=== PATIENT | female | born 1960 | race African-American/Black ===

== ENCOUNTER 2016-09-08 08:13 | Inpatient (IN) ==
--- NOTE | 2016-09-05 20:31 | Discharge Summary ---
<France Espinoza - Last Filed: 09/07/16 21:02> - Discharge Diagnosis (1) Arthritis of knee, right Priority: Primary Status: Acute (2) HTN (hypertension) Priority: Secondary Status: Chronic Qualifiers: Hypertension type: essential hypertension Qualified Code(s): I10 - Essential (primary) hypertension (3) MADAY (obstructive sleep apnea) Priority: Secondary Status: Chronic (4) Tobacco use Priority: Secondary Status: Chronic - Discharge Medications Home Medications: Alprazolam [Xanax 1 MG Tablet] 1 mg PO BID PRN 02/29/16 [History] Propranolol HCl 40 mg PO BID 02/29/16 [History] Aspirin Enteric Coated [Aspirin EC] 325 mg PO DAILY #21 tablet.dr 09/07/16 [Rx] HYDROcodone/Acet 5/325 mg [[place] 5-325 mg] 1 - 2 tab PO Q6H PRN #40 tab [Rx] Buspirone HCl [Buspar] 5 mg PO QAM 09/08/16 [History] Buspirone HCl [Buspar] 10 mg PO HS 09/08/16 [History] Promethazine HCl 12.5 mg PO DAILY PRN 09/08/16 [History] Allergies/Adverse Reactions: Allergies Oxycodone [From Percocet] Allergy (Verified 09/08/16 09:20) Itching Primary care physician: Kavya Gannon DO - Patient Status Disposition: Transfer Inpatient Rehab Fac Condition: Good - Discharge Instructions Follow Up With: Kavya Gannon DO [Primary Care Provider] - - Hospital Course Hospital course: Ms. Jennings is a 55 year old female - Time Spent with Patient Total time spent providing and/or coordinating discharge services: <Collins Cowan - Last Filed: 09/10/16 06:50> Date of Encounter: 09/10/16 Time of Encounter: 06:50 - Discharge Diagnosis (1) HTN (hypertension) Priority: Secondary Status: Chronic Qualifiers: Hypertension type: essential hypertension Qualified Code(s): I10 - Essential (primary) hypertension (2) MADAY (obstructive sleep apnea) Priority: Secondary Status: Chronic (3) Tobacco use Priority: Secondary Status: Chronic (4) Morbid obesity with BMI of 40.0-44.9, adult Priority: Secondary Status: Chronic (5) Knee instability Priority: Primary Status: Acute Qualifiers: Laterality: right Qualified Code(s): M25.361 - Other instability, right knee (6) Acute blood loss anemia Status: Acute Primary care physician: Kavya Gannon DO - Patient Status Functional capacity at discharge: uses cane/walker Overall status at discharge: patient is progressing back to baseline - Hospital Course Hospital course: Ms. Jennings is a 55 year old female The patient had an uneventful postoperative course. They received antibiotics and physical therapy and were discharged in stable condition. There will follow -up in the office in 2 weeks. Hemoglobin 8.6 a symptomatically aspirin DVT prophylaxis - Time Spent with Patient Total time spent providing and/or coordinating discharge services:
[2016-09-08] MEDS ORDERED: Albuterol 2.5 MG/3 ML NEBULIZER IH ONE (08:47)
[2016-09-08] MEDS ORDERED: CeFAZolin Pre 2,000 MG/100 ML 2,000 MG/100 ML BAG IVPB ONE (08:47)
[2016-09-08] MEDS ORDERED: Lidocaine 1% 20 ML MDV ID ONE (08:47)
[2016-09-08] MEDS ORDERED: Albuterol 2.5 MG/3 ML NEBULIZER ONE (08:50)
[2016-09-08] MEDS ORDERED: Lidocaine -MPF 2% 2 ML VIAL ONE (08:58)
[2016-09-08] MEDS ORDERED: *HR* FentaNYL (PF) 100 MCG/2 ML VIAL ONE ×2 (08:58→11:30)
[2016-09-08] MEDS ORDERED: *HR* Propofol 200 MG/20 ML VIAL IVP ONE ×2 (08:58→12:13)
[2016-09-08] MEDS ORDERED: *HR* Midazolam HCl 2 MG/2 ML VIAL ONE ×2 (08:58→10:39)
[2016-09-08] MEDS ORDERED: Ringers Solution, Lactated 1,000 ML IVC SCH ×2 (09:00→13:22)
--- NOTE | 2016-09-08 09:08 | History & Physical Report ---
Date of Encounter: 09/08/16 Time of Encounter: 09:08 24 Hour HP Update - Instructions Instructions: If the History and Physical is less than 30 days old and was completed prior to A.M. admission and or procedure and has NOT been updated on calendar day of procedure please complete this update prior to performing procedure. - Update Patient reports changes in Medical Condition: No Changes in assessment/condition: No Changes in Medication: No Preop tests/diagnostics Reviewed: Yes Surgery Remains Indicated: Yes Consent for Planned Operative Procedure(s) Verified: Yes - Pre-Operative Checklist Preoperative Checklist Indicated: No Prophylactic Antibiotic Ordered: Yes Is VTE Prophylaxis Indicated?: Yes
[2016-09-08] MEDS ORDERED: Famotidine 20 MG/2 ML VIAL IVP ONE (10:01)
[2016-09-08] MEDS ORDERED: Acetaminophen IV 1,000 MG/100 ML INFUS..BTL IVPB ONE (10:01)
--- NOTE | 2016-09-08 10:04 | Anesthesia Evaluation PreOp ---
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 09/07/16 [Rx] HYDROcodone/Acet 5/325 mg [[place] 5-325 mg] 1 - 2 tab PO Q6H PRN #40 tab [Rx] Buspirone HCl [Buspar] 5 mg PO QAM 09/08/16 [History] Buspirone HCl [Buspar] 10 mg PO HS 09/08/16 [History] Promethazine HCl 12.5 mg PO DAILY PRN 09/08/16 [History] Allergies Oxycodone [From Percocet] Allergy (Verified 09/08/16 09:20) Itching - Meds/Allergy Pre-op Review Medications Reviewed: Yes Allergies Reviewed: Yes Beta Blockers on Current Med List: No Anesthesia Results - Labs Laboratory Tests 08/26/16 08/26/16 11:33 11:33 Hgb 14.3 Hct 45.9 H Plt Count 385 Sodium 138 Potassium 4.0 BUN 15 Creatinine 0.93 - Imaging EKG: report reviewed (Sinus Tach) Anesthesia Exam O2 Sat Height 1.6 m Height 1.6 m Height 1.6 m Weight 102.965 kg Weight 102.965 kg Weight 102.965 kg O2 Sat by Pulse Oximetry 100 O2 Sat by Pulse Oximetry 100 Vital Signs Temp Pulse Resp BP Pulse Ox 98.3 F 83 16 150/78 100 09/08/16 08:47 09/08/16 08:47 09/08/16 08:47 09/08/16 08:47 09/08/16 08:47 Height: 5'3 Weight: 242 lbs - HEENT Pupil (Motor): Pupils equal, EOMI Mallampati: II Teeth: Normal Oral Opening: Greater than 3 - DIGITAL SPECIALIST LOC: Oriented DIGITAL SPECIALIST Sensory: Normal: RUE, LUE, RLE, LLE, Face - Cardiac Rhythm: Regular Murmur: None JVD: No Carotid Bruit: No - Pulmonary Breath Sounds: bilateral Clear Respiratory Effort: Symmetrical Anesthesia Assess/Plan ASA Score: 3 (HTN Tobacco [place]) Modified Hartland Scale for Level of Consciousness: Cooperative, oriented, and tranquil Anesthetic Plan: General, Regional Monitoring Plan: Standard Monitors Recovery Plan: PACU (Discused GA and RA, agrees to proceed)
[2016-09-08] MEDS ORDERED: ROPIVACAINE HCL/PF 0.5% 30 ML VIAL ONE (10:31)
[2016-09-08] MEDS ORDERED: Tetracaine/PF 20 MG/2 ML AMPUL SPINA ONE (10:31)
[2016-09-08] MEDS ORDERED: Bupivacaine/Clonidine Syringe 1 EACH SYRINGE ONE (10:31)
[2016-09-08] MEDS ORDERED: Ketorolac 30 MG/ML VIAL ONE (11:38)
[2016-09-08] MEDS ORDERED: Dexamethasone 4 MG/ML VIAL ONE (11:46)
--- NOTE | 2016-09-08 12:04 | Orthopedic Operative Note ---
Date of procedure: 09/08/16 Pre-op diagnosis: Right knee multidirectional instability Post-op diagnosis: same (Grade 3 arthritic changes patellofemoral joint medial compartment) Procedure: Procedure: Right Total knee replacement Estimated blood loss: 300 cc Hardware: Biomet Femur: Right 65, 15 x 120 Tibia: Tibia 67, 14 x 120 Tana insert: 12 constraine Patella: 37 Exam Under anesthesia: Significant varus valgus instability as well as anterior posterior instability Procedural Notes: Multi-ligament injury ACL PCL MCL and possibly LCL, grade 3 arthritic changes medial compartment patellofemoral joint. Operative procedure: The patient was brought to the operating room and placed on the operating room table. After general anesthesia was administered the operative knee was examined. Findings were noted in the exam under anesthesia. The operative extremity was prepped and draped in sterile surgical fashion. The patient received IV antibiotics prior to skin incision. A standard midline incision was made centered over the patella. The incision was made through the skin and subcutaneous tissue. A medial parapatellar tendon approach was performed. Care was taken to preserve tissue along the medial aspect of the patella. And to protect the patella tendon. The deep MCL was released off the medial tibia. The infra patella fat pad was excised. Knee was brought into flexion. Patient was noted to have grade 3 arthritic changes medial compartment and patellofemoral joint. Also noted to have disruption of the ACL and PCL varus valgus stress indicated MCL and LCL injuries as well. The entry hole was made for the intramedullary femoral guide. The guide was seated in 6 degrees of valgus. Anterior cut was made followed by the distal cut. The remnant ACL the PCL the medial and the lateral menisci were excised. The tibia was subluxed forward. The entry hole was made for the intramedullary tibial guide. Guide was seated to resect 2 mm off the more abnormal side. The knee was brought into flexion the distal femur was sized to a 65. The femur was first reamed to 15 by 120. The femoral guide was seated, the anterior cut was made followed by the posterior condylar cut, followed by the chamfer cuts. The finishing guide was seated the box cut was made. The tibia was sized to a 67 The tibia was first reamed up to a 14 x 120. Trial reduction revealed full extension no varus valgus instability with the appropriate 12 insert. The patella was everted and cut was made at the level of the insertion of the quadriceps and patella tendon. The patella was sized to a 87 the guide was seated and the lug holes are drilled. Trial reduction revealed excellent patella tracking. All trial components were removed all bony surfaces were irrigated. Components were assembled on the back table. The tibia was cemented first followed by the femur. The 12 Tana was seated and secured. The knee was brought into full extension. The patella was cemented and held in place with the patellar holding clamp. After the cement had hardened, the knee sat for 2 minutes with a Betadine saline solution. The knee was then irrigated out with 2 L of pulse irrigation. The extensor mechanism was with #2 FiberWire suture and #2 PDS suture. The subcutaneous tissue was then irrigated and closed deep with #1 PDS suture superficially with 0 PDS suture and skin was closed with skin reuben The patient was then placed in a sterile dressing and a postoperative brace extubated and transferred to recovery room in stable condition. Anesthesia: ZACHARY Surgeon: Collins Cowan Studio Receptionist: France Espinoza Condition: stable Disposition: PACU
[2016-09-08] MEDS ORDERED: *HR* HYDROmorphone 2 MG/ML SYRINGE ONE (12:16)
[2016-09-08] MEDS: *HR* HYDROmorphone (PF) 1 MG/ML SYRINGE IVP PRN ×4 (12:35→13:05)
[2016-09-08] MEDS ORDERED: *HR* HYDROmorphone (PF) 1 MG/ML SYRINGE ONE ×2 (12:36→12:50)
[2016-09-08 13:12] LABS: Hematocrit 37.1 % (35.3-44.9); Hemoglobin 11.7 g/dL (11.5-15.4)
[2016-09-08] MEDS ORDERED: Temazepam 15 MG CAPSULE PO PRN (13:22)
[2016-09-08] MEDS ORDERED: Sennosides 8.6 MG TABLET PO PRN (13:22)
[2016-09-08] MEDS ORDERED: Ondansetron 4 MG/2 ML VIAL IVP PRN (13:22)
[2016-09-08] MEDS ORDERED: MOM Conc 10 ML UD.LIQ PO PRN (13:22)
[2016-09-08] MEDS ORDERED: Acetaminophen 325 MG TABLET PO PRN (13:22)
[2016-09-08] MEDS ORDERED: Naloxone 0.4 MG/ML INJ IVP PRN (13:22)
--- NOTE | 2016-09-08 15:53 | Anesthesia Evaluation Post Op ---
Date of Encounter: 09/08/16 Time of Encounter: 13:15 - Vital Signs Vital Signs: Vital Signs/O2 Sat/Glucose, Most Current Temp Pulse Resp BP Pulse Ox 09/08/16 15:40 97.5 F L 81 12 89/64 98 09/08/16 14:10 98.0 F 87 12 118/72 99 09/08/16 13:40 98.0 F 80 12 119/72 97 09/08/16 13:31 97.1 F L 84 16 111/97 99 09/08/16 13:21 76 16 121/83 97 09/08/16 13:11 84 16 134/103 99 09/08/16 13:01 97.1 F L 80 16 126/95 99 09/08/16 12:51 80 16 161/72 100 09/08/16 12:41 84 16 150/93 98 09/08/16 12:31 97.8 F 83 16 153/85 97 - Lungs Lungs: Clear Ascult./Percussion - Airway Airway: Non-obstructed - Cardiovascular Baseline Rhythm - Mental Status Mental Status: Alert & Oriented, Answers Appropriately - Pain Pain Scale: 1 Pain Scale used: Black-Padron (Faces) - Nausea Vomiting Nausea Vomiting: Not Present - Hydration Hydration: Ice chips, Has not voided - Discharge PostOp Status: Transfer Patient to floor Anes Supervising Prov Stmt: Pt seen/evaluated, VSS And pt has met criteria for discharge to floor. -MD Vitor
[2016-09-08] MEDS ORDERED: *HR* Enoxaparin 30 MG/0.3 ML SYRINGE SQ SCH (18:00)
[2016-09-08] MEDS: ceFAZolin 2,000 MG in D5% in Water 100 ML IVPB SCH (18:35)
[2016-09-08] MEDS ORDERED: ALPRAZolam 1 MG TABLET PO PRN (18:59)
[2016-09-08] MEDS: *HR* HYDROcodone/Acet 5/325 mg TABLET PO PRN (22:26)
[2016-09-09] MEDS: *HR* HYDROcodone/Acet 5/325 mg TABLET PO PRN ×2 (04:25→18:00)
[2016-09-09] MEDS: ceFAZolin 2,000 MG in D5% in Water 100 ML IVPB SCH (04:26)
[2016-09-09 04:53] LABS: Hematocrit 32.2 % (35.3-44.9)
[2016-09-09 04:54] LABS: Hemoglobin 10.1 g/dL (11.5-15.4)
[2016-09-09] MEDS: *HR* HYDROmorphone (PF) 1 MG/ML SYRINGE IVP PRN ×3 (06:32→20:10)
[2016-09-09] MEDS ORDERED: *HR* LORazepam 2 MG/ML VIAL IVP ONE (06:36)
--- NOTE | 2016-09-09 06:39 | Orthopedics Progress Note ---
Date of Encounter: 09/09/16 Time of Encounter: 06:38 - Assessment and Plan (1) HTN (hypertension) Current Visit: Yes Status: Chronic Qualifiers: Hypertension type: essential hypertension Qualified Code(s): I10 - Essential (primary) hypertension (2) MADAY (obstructive sleep apnea) Current Visit: Yes Status: Chronic (3) Tobacco use Current Visit: Yes Status: Chronic (4) Morbid obesity with BMI of 40.0-44.9, adult Current Visit: Yes Status: Chronic (5) Knee instability Current Visit: Yes Status: Acute Qualifiers: Laterality: right Qualified Code(s): M25.361 - Other instability, right knee Subjective Interval history: pt doing well no complaints afvss operative extremity NVI dressing c/d/i calves nt continue postop care hct 32 Objective Vital signs: Vital Signs Temp Pulse Resp BP Pulse Ox 09/09/16 04:49 98.5 F 133 19 131/69 100 09/09/16 00:45 98.1 F 94 15 144/78 100 09/08/16 19:41 98.1 F 82 14 125/77 99 09/08/16 16:41 97.6 F 89 14 109/80 98 09/08/16 15:40 97.5 F L 81 12 89/64 98 09/08/16 14:10 98.0 F 87 12 118/72 99 09/08/16 13:40 98.0 F 80 12 119/72 97 09/08/16 13:31 97.1 F L 84 16 111/97 99 09/08/16 13:21 76 16 121/83 97 09/08/16 13:11 84 16 134/103 99 09/08/16 13:01 97.1 F L 80 16 126/95 99 09/08/16 12:51 80 16 161/72 100 09/08/16 12:41 84 16 150/93 98 09/08/16 12:31 97.8 F 83 16 153/85 97 09/08/16 10:52 82 115/73 97 09/08/16 10:36 80 144/73 96 09/08/16 08:58 16 100 09/08/16 08:47 98.3 F 83 16 150/78 100 Intake and Output 09/08/16 09/08/16 09/09/16 15:59 23:59 07:59 Intake Total 1100 / 1100 220 / 220 100 / 100 Output Total 400 / 400 225 / 225 550 / 550 Balance 700 / 700 -5 / -5 -450 / -450 Intake: IV Fluids 1100 / 1100 100 / 100 100 / 100 Lactated Ringers 1,000 ML 1000 / 1000 @ 25 mls/hr IVC .Q24H [facility] Rx#:[id number] Ancef 2,000 MG In 100 / 100 100 / 100 Dextrose 5% 100 ML @ 200 mls/hr IVPB Q8H CARLOS Rx#: [id number] Ancef Premix 2,000 MG/100 100 / 100 ML 2,000 mg In 100 ml @ 200 mls/hr IVPB PREOP ONE Rx#:[id number] Oral 120 / 120 Output: Urine 225 / 225 550 / 550 Estimated Blood Loss 400 / 400 Other: Meal Dinner Percent of Meal Consumed 15% # Voids 1 1 Weight 102.965 kg - Labs CBC & BMP: 09/09/16 04:40 Labs: Abnormal lab results Hgb 10.1 g/dL (11.5-15.4) L D 09/09/16 04:40 Hct 32.2 % (35.3-44.9) L 09/09/16 04:40 - VTE Documentation of Mechanical Device: Venous foot pump, device Consult Discharge Plan - Plan Referrals: Kavya Gannon DO [Primary Care Provider] -
[2016-09-09] MEDS ORDERED: Acetaminophen IV 1,000 MG/100 ML INFUS..BTL IVPB PRN (06:44)
[2016-09-09 06:59] LABS: Blood Urea Nitrogen 18 mg/dL (7-20); Carbon Dioxide 22 mEq/L (19-29); Chloride 103 mEq/L (98-109); Glucose 136 mg/dL (70-99); Osmolality,Calculated 290 (280-300); Sodium 138 mEq/L (136-145)
[2016-09-09 07:00] LABS: Potassium 4.9 mEq/L (3.5-4.5)
[2016-09-09 07:09] LABS: BUN/Creatinine Ratio 17 (6-26); Calcium 10.1 mg/dL (8.6-10.8); eGFR For African Americans > 60 (> 60); eGFR For Non-African Americans 55 (> 60)
[2016-09-09] MEDS: *HR* Enoxaparin 30 MG/0.3 ML SYRINGE SQ SCH ×2 (07:58→18:01)
[2016-09-09] MEDS ORDERED: Acetaminophen IV 1,000 MG/100 ML INFUS..BTL IVPB SCH (12:00)
[2016-09-10] MEDS: *HR* HYDROcodone/Acet 5/325 mg TABLET PO PRN ×3 (00:49→12:40)
[2016-09-10] MEDS: *HR* HYDROmorphone (PF) 1 MG/ML SYRINGE IVP PRN ×3 (03:25→14:34)
[2016-09-10] MEDS: *HR* Enoxaparin 30 MG/0.3 ML SYRINGE SQ SCH (04:59)
[2016-09-10 05:16] LABS: Hematocrit 27.4 % (35.3-44.9); Hemoglobin 8.6 g/dL (11.5-15.4)
[2016-09-10 05:34] LABS: BUN/Creatinine Ratio 27 (6-26); Blood Urea Nitrogen 19 mg/dL (7-20); Calcium 9.5 mg/dL (8.6-10.8); Carbon Dioxide 26 mEq/L (19-29); Chloride 102 mEq/L (98-109); Glucose 115 mg/dL (70-99); Osmolality,Calculated 283 (280-300); Potassium 4.3 mEq/L (3.5-4.5); Sodium 135 mEq/L (136-145); eGFR For African Americans > 60 (> 60); eGFR For Non-African Americans > 60 (> 60)
--- NOTE | 2016-09-10 06:51 | Orthopedics Progress Note ---
Date of Encounter: 09/10/16 Time of Encounter: 06:51 - Assessment and Plan (1) HTN (hypertension) Current Visit: Yes Status: Chronic Qualifiers: Hypertension type: essential hypertension Qualified Code(s): I10 - Essential (primary) hypertension (2) MADAY (obstructive sleep apnea) Current Visit: Yes Status: Chronic (3) Tobacco use Current Visit: Yes Status: Chronic (4) Morbid obesity with BMI of 40.0-44.9, adult Current Visit: Yes Status: Chronic (5) Knee instability Current Visit: Yes Status: Acute Qualifiers: Laterality: right Qualified Code(s): M25.361 - Other instability, right knee (6) Acute blood loss anemia Current Visit: Yes Status: Acute Subjective Interval history: pt doing well no complaints afvss operative extremity NVI dressing c/d/i calves nt continue postop care [id number] asymptomatic discharged today Objective Vital signs: Vital Signs Temp Pulse Resp BP Pulse Ox 09/10/16 06:48 98.5 F 87 16 139/67 99 09/10/16 03:21 98.2 F 83 16 134/64 100 09/10/16 00:00 97.6 F 83 17 133/81 100 09/09/16 20:30 97.7 F 91 18 178/76 100 09/09/16 14:51 97.6 F 97 18 124/85 96 09/09/16 11:24 98.1 F 123 18 114/75 100 09/09/16 07:00 114/73 Intake and Output 09/09/16 09/09/16 09/10/16 15:59 23:59 07:59 Intake Total 300 / 300 Output Total 400 / 400 100 / 100 Balance -400 / -400 300 / 300 -100 / -100 Intake: Oral 300 / 300 Output: Urine 400 / 400 100 / 100 Other: # Voids 1 1 - Labs CBC & BMP: 09/10/16 05:00 09/10/16 05:00 Labs: Abnormal lab results Hgb 8.6 g/dL (11.5-15.4) L D 09/10/16 05:00 Hct 27.4 % (35.3-44.9) L 09/10/16 05:00 Sodium 135 mEq/L (136-145) L 09/10/16 05:00 BUN/Creatinine Ratio 27 (6-26) H 09/10/16 05:00 Glucose 115 mg/dL (70-99) H 09/10/16 05:00 - VTE Documentation of Mechanical Device: Venous foot pump, device Consult Discharge Plan - Plan Referrals: Kavya Gannon DO [Primary Care Provider] -
[2016-09-10 11:11] VITALS: BP 136/74
== END 2016-09-10 19:04 | DRG 302 ==
LOC: SAMDAY 08:13 → 3NENU 13:22
PROVIDERS: ADMIT Orthopaedic Surgery; ATTEND Orthopaedic Surgery

== ENCOUNTER 2018-03-12 06:43 | Inpatient (IN) ==
[2018-03-12] MEDS ORDERED: Dexamethasone 4 MG/ML VIAL ONE (07:04)
[2018-03-12] MEDS ORDERED: Ondansetron 4 MG/2 ML VIAL ONE (07:04)
[2018-03-12] MEDS ORDERED: Lidocaine -MPF 2% 2 ML VIAL ONE ×4 (07:04→11:12)
[2018-03-12] MEDS ORDERED: Lidocaine -MPF 4% 5 ML AMPUL ONE (07:04)
[2018-03-12] MEDS ORDERED: *HR* Succinylcholine 200 MG/10 ML VIAL IVP ONE (07:04)
[2018-03-12] MEDS ORDERED: *HR* Propofol 200 MG/20 ML VIAL IVP ONE ×2 (07:04→11:16)
[2018-03-12] MEDS ORDERED: *HR* Midazolam HCl 2 MG/2 ML VIAL ONE (07:04)
[2018-03-12] MEDS ORDERED: *HR* Rocuronium Bromide 50 MG/5 ML VIAL ONE (07:04)
[2018-03-12] MEDS ORDERED: *HR* FentaNYL (PF) 100 MCG/2 ML VIAL ONE ×3 (07:04→12:24)
[2018-03-12] MEDS ORDERED: CeFAZolin Syr 2,000MG/20 ML 2,000 MG/20 ML SYRINGE IVPB ONE (07:14)
[2018-03-12] MEDS ORDERED: Albuterol 2.5 MG/3 ML NEBULIZER IH ONE (07:14)
[2018-03-12] MEDS ORDERED: Ringers Solution, Lactated 1,000 ML IVC SCH (07:15)
--- NOTE | 2018-03-12 07:20 | Anesthesia Evaluation PreOp ---
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 Any Significant HX Other Medical History: Other (breast CA) Anesthesia History: No Prior Anesthetic Complications, Past Anesthesia Alcohol Use: none Drug use: none Medications and Allergies Propranolol HCl 40 mg PO BID 02/29/16 [History] ALPRAZolam [Xanax 0.5 MG Tablet] 0.5 mg PO BID 10/15/17 [History] Buspirone HCl [Buspar] 15 mg PO TID 10/15/17 [History] Gabapentin [Gralise] 600 mg PO BID PRN 10/15/17 [History] Melatonin 1 - 2 cap PO HS PRN 10/15/17 [History] Cholecalciferol (D-3) [Vitamin D] 5,000 unit PO DAILY #30 tablet 10/16/17 [Rx] Lidocaine/Prilocaine [Emla] 1 appl TP DAILY #30 gm 10/27/17 [Rx] LORazepam [Ativan] 1 mg PO QID PRN 11/09/17 [History] Lactobacillus Acidophilus [Acidophilus Probiotic] 1 mg PO TID #30 tablet [Rx] Nystatin POWDER [Nystop] 1 appl TP BID #30 gm 12/14/17 [Rx] Dexamethasone [Decadron] 4 mg PO BID #10 tab 01/25/18 [Rx] OLANZapine [Zyprexa] 10 mg PO HS #8 tablet 01/25/18 [Rx] Dicyclomine [Bentyl] 10 mg PO TID PRN #30 capsule 01/27/18 [Rx] HYDROcodone/Acet 5/325 mg [[place] 5-325 mg] 1 - 2 tab PO Q6H PRN 7 Days #56 02/23 [Rx] Promethazine [Phenergan] 25 mg PO Q6HR PRN #30 tablet 02/23/18 [Rx] 3 Allergy/AdvReac Type Severity Reaction Status Date / Time adhesive Allergy Severe See Verified 02/15/18 08:30 Comments Oxycodone [From Percocet] Allergy Itching Verified 02/15/18 08:30 - Meds/Allergy Pre-op Review Medications Reviewed: Yes Allergies Reviewed: Yes Beta Blockers on Current Med List: Yes (0600) Anesthesia Results - Imaging EKG: report reviewed (sinus) Additional studies: ECHO 65% Anesthesia Exam Selected Entries 03/12/18 07:06 Temperature 97.9 F Pulse Rate 82 Respiratory Rate 18 Blood Pressure 110/56 O2 Sat by Pulse Oximetry 98 - HEENT Pupil (Motor): Pupils equal Mallampati: I Teeth: Normal Oral Opening: Greater than 3 - Cardiac Rhythm: Regular Murmur: None - Pulmonary Breath Sounds: bilateral Clear Respiratory Effort: Symmetrical Anesthesia Assess/Plan ASA Score: 3 Modified Gwyn Scale for Level of Consciousness: Cooperative, oriented, and tranquil Anesthetic Plan: General Monitoring Plan: Standard Monitors Recovery Plan: PACU (Discussed GA, risks. Agreed to proceed.)
[2018-03-12] MEDS ORDERED: Acetaminophen IV 1,000 MG/100 ML INFUS..BTL IVPB ONE (07:22)
--- NOTE | 2018-03-12 08:43 | History & Physical Report ---
Date of Encounter: 03/12/18 Time of Encounter: 08:42 24 Hour HP Update - Instructions Instructions: If the History and Physical is less than 30 days old and was completed prior to A.M. admission and or procedure and has NOT been updated on calendar day of procedure please complete this update prior to performing procedure. - Update Patient reports changes in Medical Condition: No Changes in examination, assessment, or condition: No Changes in Medication: No Preop tests/diagnostics Reviewed: Yes Surgery Remains Indicated: Yes Consent for Planned Operative Procedure(s) Verified: Yes - Pre-Operative Checklist Preoperative Checklist Indicated: Yes Prophylactic Antibiotic Ordered: Yes Home Medications Include Beta Brinda: Yes Beta Brinda Taken Today (Day of Surgery): Yes
[2018-03-12] MEDS ORDERED: Ketorolac 30 MG/ML VIAL ONE (09:41)
[2018-03-12] MEDS ORDERED: *HR* Promethazine 25 MG/ML VIAL IVP PRN (09:43)
[2018-03-12] MEDS ORDERED: *HR* HYDROmorphone (PF) 1 MG/ML SYRINGE IVP PRN (09:43)
[2018-03-12] MEDS ORDERED: Famotidine 20 MG/2 ML VIAL ONE (10:11)
[2018-03-12] MEDS ORDERED: Scopolamine Patch 1.5 MG PATCH.TD72 ONE (10:27)
[2018-03-12] MEDS ORDERED: *HR* PHENYLEPHRINE 1,000 MCG/10 ML SYRINGE IVP ONE ×2 (11:38→12:19)
[2018-03-12] MEDS ORDERED: Propofol 500 MG/50 ML INFUS..BTL ONE ×2 (11:58→12:14)
[2018-03-12] MEDS ORDERED: Metoclopramide 10 MG/2 ML VIAL ONE (12:59)
[2018-03-12] MEDS ORDERED: *HR* HYDROcodone/Acet 5/325 mg TABLET PO STA (13:54)
--- NOTE | 2018-03-12 14:18 | Anesthesia Evaluation Post Op ---
Date of Encounter: 03/12/18 Time of Encounter: 14:17 - Vital Signs Vital Signs: Vital Signs/O2 Sat/Glucose, Most Recent Temp Pulse Resp BP Pulse Ox 98.2 F 74 16 138/72 100 03/12/18 13:55 03/12/18 14:10 03/12/18 14:10 03/12/18 13:55 03/12/18 14:10 - Lungs Lungs: Clear Ascult./Percussion - Airway Airway: Non-obstructed - Cardiovascular Regular Rate - Mental Status Mental Status: Alert & Oriented, Answers Appropriately - Pain Pain Scale: 0 (c/o back pain at baseline, no surgical pain) Pain Scale used: Numeric (1 - 10) - Nausea Vomiting Nausea Vomiting: Not Present - Hydration Hydration: Tolerates oral liquids - Discharge PostOp Status: Transfer Patient to floor
[2018-03-12] MEDS ORDERED: OXYCODONE Oral CONC 10 MG/0.5 ML ORAL.SYG SL PRN ×2 (14:20→14:27)
[2018-03-12] MEDS ORDERED: HYDROcodone/Acet 5-217 mg/10mL 10 ML UDC PO PRN (14:33)
[2018-03-12] MEDS: 0.9 % Sodium Chloride 1,000 ML IVC SCH (16:11)
[2018-03-12] MEDS: Ketorolac 15 MG/ML VIAL IVP PRN (16:13)
--- NOTE | 2018-03-12 16:23 | Operative Note ---
Date of procedure: 03/12/18 Pre-op diagnosis: Bilateral breast cancer Post-op diagnosis: same Procedure: Bilateral mastectomy with left axillary completion dissection and right axillary sentinel lymph node biopsy with injection of methylene blue Anesthesia: ZACHARY Surgeon: Charly Kay Was there an assistant coach present: No Estimated blood loss (cc): 5 Specimen: Bilateral breasts and left axillary contents and right sentinel lymph node Condition: stable Disposition: floor Procedure in Detail: After informed consent, the patient was taken to the OR. After adequate sedation and anesthesia the patient was prepped and draped. The right and left breast was marked with a marking pen. The right breast was injected with methylene blue x 3mls. The patient had been injected with technetium sulfur colloid prior to the procedure. A 10 blade was used to make an incision to create a superior and inferior skin flaps. Once the skin flaps were created, the breast was lifted from the medial surface and removed from the pectoral fascia. This is done from a medial to lateral fashion. The tail of Martinez was also dissected free and removed. A sentinel lymph node was identified in the right axilla by its blue staining and its radiotracer uptake and identification with the neoprobe.Once the right breast had been removed, the skin flaps were irrigated and suctioned dry a 19-Rw[place] Junior drain was placed in the right chest. Skin was approximated with 3-0 Vicryl suture and closed definitively with 4-0 Vicryl suture. Dermabond was placed in the skin incision. The drain was closed and secured with a 3-0 nylon. The left breast was removed in much the same fashion. Superior and inferior skin flaps were created and the breast was removed from the chest wall in a medial to lateral fashion including the tail of Martinez. Once completely passed off both breasts relabel such and sent to pathology. An axillary dissection was performed in the left axillary space. Minimal number of lymph nodes were identified. The patient undergone neoadjuvant therapy. Once the axilla been completely skeletonized then the wound was irrigated and suctioned dry. A 19- [place] Junior drain was placed in the left chest. It too was secured with 3-0 nylon suture. Skin was closed with 3-0 and 4-0 Vicryl sutures. Dermabond was placed on the skin incisions. All instrument counts and needle counts were correct in the case. Patient tolerated the procedure well.
[2018-03-12] MEDS: *HR* HYDROcodone/Acet 5/325 mg TABLET PO PRN ×2 (17:31→23:17)
[2018-03-12] MEDS: traMADol 50 MG TABLET PO PRN (21:03)
[2018-03-12] MEDS: Ondansetron 4 MG/2 ML VIAL IVP PRN (23:21)
[2018-03-13] MEDS: *HR* HYDROcodone/Acet 5/325 mg TABLET PO PRN ×3 (03:50→16:00)
[2018-03-13] MEDS: 0.9 % Sodium Chloride 1,000 ML IVC SCH ×2 (05:41→19:00)
[2018-03-13] MEDS: Ketorolac 15 MG/ML VIAL IVP PRN ×2 (08:35→14:32)
[2018-03-13] MEDS: Ondansetron 4 MG/2 ML VIAL IVP PRN ×2 (08:36→14:31)
--- NOTE | 2018-03-13 10:07 | General Surgery Progress Note ---
Date of Encounter: 03/13/18 Time of Encounter: 10:04 - Assessment and Plan (1) Breast cancer Current Visit: Yes Status: Acute 57F POD #1 s/p Bilateral mastectomy with left axillary completion dissection and right axillary sentinel lymph node biopsy; pain not in control; tolerating diet resume narco per home regimen tramadol, flexeril arm restriction, no higher than 45 degrees lifting restrictions; no more than a gallon of milk serial exam of pain control; BELTRAN drain teaching Qualifiers: Breast location: unspecified site of breast Estrogen receptor status: positive Patient sex: female Laterality: bilateral Qualified Code(s): C50.911 - Malignant neoplasm of unspecified site of right female breast; C50.912 - Malignant neoplasm of unspecified site of left female breast; Z17.0 - Estrogen receptor positive status [ER+] Subjective Patient reports: no new complaints, feels better, still having pain, tolerating liquids well, afebrile Objective Vital Signs - Last 8 Hours Temp Pulse Resp BP Pulse Ox 03/13/18 06:46 97.8 F 92 14 108/72 97 03/13/18 04:00 97.8 F 88 16 120/78 97 Intake and Output 03/12/18 03/13/18 03/13/18 23:59 07:59 15:59 Intake Total 360 / 360 1000 / 1000 222 / 222 Output Total 150 / 150 135 / 135 Balance 210 / 210 865 / 865 222 / 222 Intake: IV Fluids 1000 / 1000 222 / 222 0.9 % Sodium Chloride 1,000 ML 1000 / 1000 222 / 222 @ 75 mls/hr IVC .[id number] [facility] Rx #:[id number] Oral 360 / 360 0 / 0 0 / 0 Output: Urine 0 / 0 100 / 100 Wound Drainage 150 / 150 35 / 35 Left Chest 80 / 80 15 / 15 Right Chest 70 / 70 20 / 20 Other: Meal Breakfast Percent of Meal Consumed 10% # Voids 1 Weight 95 kg Patient Weight 03/13/18 23:59 Weight 95 kg - General physical appearance no distress - Respiratory normal expansion, normal respiratory effort - Cardiovascular Cardiovascular exam: Present: RRR - Incision Incision: Present: clean and dry, intact - Neurologic CN 2-12 grossly intact - Musculoskeletal normal posture Consult Discharge Plan - Plan Referrals: Charly Kay DO [Partnered Physician] - 03/23/18 11:15 am Jean Steen DO [Primary Care Provider] -
[2018-03-13] MEDS: traMADol 50 MG TABLET PO PRN ×2 (12:39→20:26)
[2018-03-14] MEDS: *HR* HYDROcodone/Acet 5/325 mg TABLET PO PRN ×4 (03:45→22:25)
[2018-03-14] MEDS: 0.9 % Sodium Chloride 1,000 ML IVC SCH ×2 (07:28→20:14)
[2018-03-14] MEDS: Ketorolac 15 MG/ML VIAL IVP PRN ×3 (07:31→20:14)
[2018-03-14] MEDS: Ondansetron 4 MG/2 ML VIAL IVP PRN ×3 (07:31→19:36)
--- NOTE | 2018-03-14 10:53 | General Surgery Progress Note ---
<Destin Valentin R - Last Filed: 03/14/18 10:51> Date of Encounter: 03/14/18 Time of Encounter: 08:15 - Assessment and Plan (1) Breast cancer Current Visit: Yes Status: Acute POD #2 s/p Bilateral mastectomy with left axillary completion dissection and right axillary sentinel lymph node biopsy with Dr. Kay Plan: arm restrictions, no higher than 45 degress lifting restrictions, no more than a gallon of milk comfort care and pain management BELTRAN drain teaching comfort care and pain management prn antiemetic Wound care and drain management Likely okay to d/c tomorrow with home health Qualifiers: Breast location: unspecified site of breast Estrogen receptor status: positive Patient sex: female Laterality: bilateral Qualified Code(s): C50.911 - Malignant neoplasm of unspecified site of right female breast; C50.912 - Malignant neoplasm of unspecified site of left female breast; Z17.0 - Estrogen receptor positive status [ER+] Subjective Patient reports: no new complaints, pain is less, tolerating a regular diet, voiding w/o difficulty, afebrile Narrative: Reporting improved pain control since initiation of home pain regimen. Tolerating regular diet, without nausea or vomiting, however appetite is diminished. Objective Vital Signs - Last 8 Hours Temp Pulse Resp BP Pulse Ox 03/14/18 10:13 97.9 F 93 14 113/69 98 03/14/18 05:13 97.7 F 101 14 113/69 98 Intake and Output 03/13/18 03/14/18 03/14/18 23:59 07:59 15:59 Intake Total 1778 / 1778 1000 / 1000 240 / 240 Output Total 141 / 141 130 / 130 30 / 30 Balance 1637 / 1637 870 / 870 210 / 210 Intake: IV Fluids 1778 / 1778 1000 / 1000 0.9 % Sodium Chloride 1,000 ML 778 / 778 1000 / 1000 @ 75 mls/hr IVC .[id number] [facility] Rx #:[id number] Oral 240 / 240 Output: Urine 100 / 100 100 / 100 0 / 0 Wound Drainage 41 / 41 30 / 30 30 / 30 Left Chest 9 / 9 0 / 0 10 / 10 Right Chest 32 / 32 30 / 30 20 / 20 Other: Meal KEEP Breakfast Percent of Meal Consumed 100% Weight 96.1 kg Patient Weight 03/14/18 23:59 Weight 96.1 kg Consult Discharge Plan - Plan Referrals: Charly Kay DO [Partnered Physician] - 03/23/18 11:15 am Jean Steen DO [Primary Care Provider] - <Андрей Villa - Last Filed: 03/14/18 16:56> Date of Encounter: 03/14/18 - Assessment and Plan (1) Breast cancer Current Visit: Yes Status: Acute Qualifiers: Breast location: unspecified site of breast Estrogen receptor status: positive Patient sex: female Laterality: bilateral Qualified Code(s): C50.911 - Malignant neoplasm of unspecified site of right female breast; C50.912 - Malignant neoplasm of unspecified site of left female breast; Z17.0 - Estrogen receptor positive status [ER+] Objective Vital Signs - Last 8 Hours Temp Pulse Resp BP Pulse Ox 03/14/18 15:10 98.2 F 110 16 118/62 98 03/14/18 10:13 97.9 F 93 14 113/69 98 Intake and Output 03/14/18 03/14/18 03/14/18 07:59 15:59 23:59 Intake Total 1000 / 1000 480 / 480 Output Total 130 / 130 168 / 168 Balance 870 / 870 312 / 312 Intake: IV Fluids 1000 / 1000 0.9 % Sodium Chloride 1,000 ML 1000 / 1000 @ 75 mls/hr IVC .[id number] [facility] Rx #:[id number] Oral 480 / 480 Output: Urine 100 / 100 100 / 100 Wound Drainage 30 / 30 68 / 68 Left Chest 0 / 0 20 / 20 Right Chest 30 / 30 48 / 48 Other: Meal Lunch Percent of Meal Consumed 25% Weight 96.1 kg Patient Weight 03/14/18 23:59 Weight 96.1 kg - Attending Attestation patient seen and examined. i have reviewed all labs, imaging, and notes. i agree with the above assessment and plan.
[2018-03-14] MEDS: traMADol 50 MG TABLET PO PRN (10:54)
[2018-03-15] MEDS: traMADol 50 MG TABLET PO PRN ×2 (03:53→13:36)
[2018-03-15] MEDS: *HR* HYDROcodone/Acet 5/325 mg TABLET PO PRN (08:01)
[2018-03-15] MEDS ORDERED: Gabapentin 300 MG CAPSULE PO PRN (08:37)
[2018-03-15] MEDS ORDERED: *HR* LORazepam 1 MG TABLET PO PRN (08:38)
--- NOTE | 2018-03-15 08:45 | Discharge Summary ---
Orders not resulted at time of discharge: Pending orders 03/12/18 12:19 Surgical Pathology [PTH] Routine 03/12/18 12:50 Surgical Pathology [PTH] Routine 03/12/18 12:51 Surgical Pathology [PTH] Routine Date of Encounter: 03/15/18 Time of Encounter: 07:45 - Discharge Diagnosis (1) Breast cancer Priority: Primary Status: Acute Qualifiers: Breast location: unspecified site of breast Estrogen receptor status: positive Patient sex: female Laterality: bilateral Qualified Code(s): C50.911 - Malignant neoplasm of unspecified site of right female breast; C50.912 - Malignant neoplasm of unspecified site of left female breast; Z17.0 - Estrogen receptor positive status [ER+] (2) S/P mastectomy, bilateral Priority: Secondary Status: Acute General Surgery Exam Initial Vital Signs Temp Pulse Resp BP Pulse Ox 97.9 F 82 18 110/56 98 03/12/18 07:06 03/12/18 07:06 03/12/18 07:06 03/12/18 07:06 03/12/18 07:06 Vital Signs Temp Pulse Resp BP Pulse Ox 03/15/18 06:52 98.0 F 115 15 108/64 100 03/15/18 02:30 98.6 F 109 14 94/64 98 03/14/18 20:04 97.5 F L 94 14 136/80 99 03/14/18 15:10 98.2 F 110 16 118/62 98 03/14/18 10:13 97.9 F 93 14 113/69 98 Intake and Output 03/14/18 03/15/18 03/15/18 23:59 07:59 15:59 Intake Total 1000 / 1000 120 / 120 Output Total 173 / 173 260 / 260 Balance 827 / 827 -140 / -140 Intake: IV Fluids 1000 / 1000 0.9 % Sodium Chloride 1,000 ML 1000 / 1000 @ 75 mls/hr IVC .[id number] [facility] Rx #:[id number] Oral 0 / 0 120 / 120 Output: Urine 100 / 100 200 / 200 Wound Drainage 73 / 73 60 / 60 Left Chest 8 / 8 20 / 20 Right Chest 65 / 65 40 / 40 Other: Stool Size Small Stool Characteristics Normal for Patient Stool Color Brown # Bowel Movements 1 Weight 96.5 kg Patient Weight 03/15/18 23:59 Weight 96.5 kg VITAL SIGNS: Reviewed. See [facility] GENERAL: In no apparent distress. HEENT: Normocephalic, atraumatic, pupils are equal and reactive, extraocular motions intact, oropharynx is pink and moist, there is no neck adenopathy or JVD noted. CHEST/RESPIRATORY: The thorax is free from signs of trauma. Lung sounds: clear to auscultation, normal respiratory effort; BL mastectomy sites are C/D/I. There is dependant echymosis on the LUE and left chest CARDIAC: Regular rate and rhythm. Normal S1 and S2, without murmurs, gallops, or rubs. VASCULAR: No Edema. 2+ peripheral pulses. ABDOMEN: soft, active bowel sounds Thorax INCISION: Surgical incision is clean, dry, and intact. There are no signs of cellulitis or infection noted. WOUNDS/DRAINS: bilateral BELTRAN drain sites are grossly as expected. Serous sanguineous drainage noted MUSCULOSKELETAL: Good range of motion of all major joints. Extremities without clubbing, cyanosis or edema. NEUROLOGIC EXAM: Alert and oriented x 3. Speech normal. Follows commands. PSYCHIATRIC: Mood normal. SKIN: No rash or lesions. - Hospital Course Hospital course: Ms. Jennings is a 57 year old female who presented on 03/12/2018 for an elective bilateral mastectomy with left axillary completion dissection in right axillary sentinel lymph node biopsy with injection of methylene blue by Dr. Kay. Her final pathology remains pending at the time of discharge. Her vital signs are stable, she is afebrile, discomfort is controlled, ambulating avoiding without difficulty, and tolerating a diet without nausea or vomiting. We will begin discharge planning to home with a follow-up in the office in approximately 2 weeks. 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 She would like them to do her wound care. - Time Spent with Patient Total time spent providing and/or coordinating discharge services: - Discharge Medications Prescriptions: Adhesive Tape [Paper Tape] 1 each TP AD #1 tape Docusate Sodium [Colace] 100 mg PO BID #30 capsule HYDROcodone/Acet 5/325 mg [[place] 5-325 mg] 1 tab PO Q6H PRN 7 Days #28 tab PRN Reason: Pain Ibuprofen 800 mg PO Q8H PRN #60 tablet PRN Reason: Mild Pain Polyhexam Biguan/Gauze Bandage [Curity Amd 4"X4" Non-Woven] 1 each TP AD #60 sponge Home Medications: Propranolol HCl 40 mg PO BID 02/29/16 [History] ALPRAZolam [Xanax 0.5 MG Tablet] 0.5 mg PO BID 10/15/17 [History] Buspirone HCl [Buspar] 15 mg PO TID 10/15/17 [History] Gabapentin [Gralise] 600 mg PO BID PRN 10/15/17 [History] Cholecalciferol (D-3) [Vitamin D] 5,000 unit PO DAILY #30 tablet 10/16/17 [Rx] LORazepam [Ativan] 1 mg PO QID PRN 11/09/17 [History] Dexamethasone [Decadron] 4 mg PO BID #10 tab 01/25/18 [Rx] Promethazine [Phenergan] 25 mg PO Q6HR PRN #30 tablet 02/23/18 [Rx] Adhesive Tape [Paper Tape] 1 each TP AD #1 tape 03/15/18 [Rx] Docusate Sodium [Colace] 100 mg PO BID #30 capsule 03/15/18 [Rx] HYDROcodone/Acet 5/325 mg [[place] 5-325 mg] 1 tab PO Q6H PRN 7 Days #28 tab 03/15 [Rx] Ibuprofen 800 mg PO Q8H PRN #60 tablet 03/15/18 [Rx] Polyhexam Biguan/Gauze Bandage [Curity Amd 4"X4" Non-Woven] 1 each TP AD #60 sponge 03/15/18 [Rx] Allergies/Adverse Reactions: 3 Allergy/AdvReac Type Severity Reaction Status Date / Time adhesive Allergy Severe See Verified 02/15/18 08:30 Comments Oxycodone [From Percocet] Allergy Itching Verified 02/15/18 08:30 Date of admission: 03/12/2018 Primary care physician: Jean Steen DO Consults: 03/14/18 18:58 Consult to [employer] [CONS] Routine Reason for SW Consult: Discharge planning. Patient wanting home health for wound care Discharging clinician: Alice Watson Anticipated date of discharge: 03/15/18 - Impressions ITS Impressions [place] Node Without Imaging Nuclear Med 03/12/18 07:40 IMPRESSION: No images were acquired. Successful right breast radiopharmaceutical administration in anticipation of intraoperative gamma probe lymph node localization. D/ / 03/12/2018 09:28:57 Jeyson Salcedo MD / Verenice Mccarty Interpreting Provider: Jeyson Salcedo MD - Patient Status Disposition: Home Health Service Condition: Good Functional capacity at discharge: independent ambulation Overall status at discharge: patient is progressing back to baseline - Discharge Instructions Instructions: Re[place]ivo Drain Care (DC), Mastectomy (DC) Follow Up With: Charly Kay DO [Partnered Physician] - 03/23/18 11:15 am Jean Steen DO [Primary Care Provider] - Additional Instructions: General Surgical Discharge Instructions 1. No pushing, pulling, or lifting greater than 15 lbs for 6 weeks (depending upon procedure). Following a lymph node dissection, don't avoid using your arm, but don't exercise it until your first post-operative visit. Do not remove the steri-strips, reuben, or stitches. If the dressing or steri-strips fall off, do not attempt to replace them. Bruising and some swelling are common in women after surgery. 2. You may shower beginning today, but no tub baths, soaking, or swimming for 2 weeks. 3. You cannot do housework or driving until the drain is out. You may restart driving when you are no longer on narcotics and you feel safe turning the wheel and stopping quickly. 4. Take ibuprofen every 8 hours for discomfort. If this does not relieve discomfort, you may take the as needed [place] Take narcotics as directed. Do not take more narcotics then directed and do not share your narcotics with any other person. Do not drink alcohol while on narcotics. Apply ice as needed. Place ice on desired area for 20 minutes on 20 minutes off as many times as desired throughout the day. 5. Take stool softeners (Colace) or a water based laxative (Miralax) while taking narcotics. You may hold for loose stools. 6. Report any fevers greater than 100.5F, increase abdominal discomfort, drainage that looks like pus, increased redness or pain at the surgical site, or any vomiting. 7. Report any pain in the calves, shortness of breath, or rapid heartbeat. 8. Follow-up in the office as directed. 9. If you were prescribed antibiotics, do not stop them without talking to your provider. 10. Daily BELTRAN Drain Care: 1. Remove dressings. Shower with antibacterial soap. 2. Do not let the BELTRAN drain dangle from your body. Use the safety pin to secure to your clothing. Secure the BELTRAN to a lanyard or other type of long necklace when you shower. 3. Replace drain gauze and taped to secure. 4. Record the output from your BELTRAN bulb (at least once daily) on the form provided and bring this with you to your follow-up appointment. 5. Keep the BELTRAN drain to suction (squeeze the bulb and replace the cap while squeezing). 6. Strip the lines twice daily (hold onto the line as close to the body as you can, then with the other hand push the contents of the line into the BELTRAN bulb). - Diet and Activity Activity: increase activity as tolerated Diet: advance to your usual diet
[2018-03-15] MEDS ORDERED: ALPRAZolam 0.5 MG TABLET PO SCH (09:00)
--- NOTE | 2018-03-15 09:49 | Physician Discharge Referral ---
Home Health/Hosp Referral Info Transfer to: Home Health Attending Provider: Dr. Charly Kay Provider in Charge Post Discharge: Other (Dr. Charly Kay) - Diagnosis (1) Breast cancer Priority: Primary Status: Acute (2) S/P mastectomy, bilateral Priority: Secondary Status: Acute - Respiratory Orders Smoking Cessation: Smoking cessation has been advised. For more information, call the [employer] Tobacco Quit Line at 8-053-NHPA-NOW. - Dressing/Wound Care Site: BL Nithin sites Type of Dressing/Treatments w/Frequency: See below - Diet/Nutrition Diet/Nutrition Orders: Regular - Activity Activity Orders: Up ad andre - Services Needed Following services are medically necessary services: [facility] Care Orders: General Surgical Discharge Instructions 1. No pushing, pulling, or lifting greater than 15 lbs for 6 weeks (depending upon procedure). Following a lymph node dissection, don't avoid using your arm, but don't exercise it until your first post-operative visit. Do not remove the steri-strips, reuben, or stitches. If the dressing or steri-strips fall off, do not attempt to replace them. Bruising and some swelling are common in women after surgery. 2. You may shower beginning today, but no tub baths, soaking, or swimming for 2 weeks. 3. You cannot do housework or driving until the drain is out. You may restart driving when you are no longer on narcotics and you feel safe turning the wheel and stopping quickly. 4. Take ibuprofen every 8 hours for discomfort. If this does not relieve discomfort, you may take the as needed [place] Take narcotics as directed. Do not take more narcotics then directed and do not share your narcotics with any other person. Do not drink alcohol while on narcotics. Apply ice as needed. Place ice on desired area for 20 minutes on 20 minutes off as many times as desired throughout the day. 5. Take stool softeners (Colace) or a water based laxative (Miralax) while taking narcotics. You may hold for loose stools. 6. Report any fevers greater than 100.5F, increase abdominal discomfort, drainage that looks like pus, increased redness or pain at the surgical site, or any vomiting. 7. Report any pain in the calves, shortness of breath, or rapid heartbeat. 8. Follow-up in the office as directed. 9. If you were prescribed antibiotics, do not stop them without talking to your provider. 10. Daily NITHIN Drain Care: 1. Remove dressings. Shower with antibacterial soap. 2. Do not let the NITHIN drain dangle from your body. Use the safety pin to secure to your clothing. Secure the NITHIN to a lanyard or other type of long necklace when you shower. 3. Replace drain gauze and taped to secure. 4. Record the output from your NITHIN bulb (at least once daily) on the form provided and bring this with you to your follow-up appointment. 5. Keep the NITHIN drain to suction (squeeze the bulb and replace the cap while squeezing). 6. Strip the lines twice daily (hold onto the line as close to the body as you can, then with the other hand push the contents of the line into the NITHIN bulb). - Transfer Medications Prescriptions: Adhesive Tape [Paper Tape] 1 each TP AD #1 tape Docusate Sodium [Colace] 100 mg PO BID #30 capsule HYDROcodone/Acet 5/325 mg [[place] 5-325 mg] 1 tab PO Q6H PRN 7 Days #28 tab PRN Reason: Pain Ibuprofen 800 mg PO Q8H PRN #60 tablet PRN Reason: Mild Pain Polyhexam Biguan/Gauze Bandage [Curity Amd 4"X4" Non-Woven] 1 each TP AD #60 sponge Home Medications: Propranolol HCl 40 mg PO BID 02/29/16 [History] ALPRAZolam [Xanax 0.5 MG Tablet] 0.5 mg PO BID 10/15/17 [History] Buspirone HCl [Buspar] 15 mg PO TID 10/15/17 [History] Gabapentin [Gralise] 600 mg PO BID PRN 10/15/17 [History] Cholecalciferol (D-3) [Vitamin D] 5,000 unit PO DAILY #30 tablet 10/16/17 [Rx] LORazepam [Ativan] 1 mg PO QID PRN 11/09/17 [History] Dexamethasone [Decadron] 4 mg PO BID #10 tab 01/25/18 [Rx] Promethazine [Phenergan] 25 mg PO Q6HR PRN #30 tablet 02/23/18 [Rx] Adhesive Tape [Paper Tape] 1 each TP AD #1 tape 03/15/18 [Rx] Docusate Sodium [Colace] 100 mg PO BID #30 capsule 03/15/18 [Rx] HYDROcodone/Acet 5/325 mg [[place] 5-325 mg] 1 tab PO Q6H PRN 7 Days #28 tab 03/15 [Rx] Ibuprofen 800 mg PO Q8H PRN #60 tablet 03/15/18 [Rx] Polyhexam Biguan/Gauze Bandage [Curity Amd 4"X4" Non-Woven] 1 each TP AD #60 sponge 03/15/18 [Rx] Allergies/Adverse Reactions: 3 Allergy/AdvReac Type Severity Reaction Status Date / Time adhesive Allergy Severe See Verified 02/15/18 08:30 Comments Oxycodone [From Percocet] Allergy Itching Verified 02/15/18 08:30 Certification: Further, I certify that my clinical findings support that this patient is homebound (i.e. absences from home require considerable and taxing effort and are for medical reasons or hinduism services or infrequently or short duration when for other reasons) because: Homebound Reason: Patient requires assistance of a person or device to safely leave home, Leaving home requires considerable and taxing effort due to condition Attestation: My signature below is to certify that this patient is under my care and that I, or nurse practitioner, or a physician's chiropractor assistant working with me, has a face-to -face encounter with this patient.
[2018-03-15 12:02] VITALS: BP 114/67
== END 2018-03-15 15:18 | disposition home health service (06) | DRG 362 ==
LOC: SAMDAY 06:43 → 3ANU 14:39
PROVIDERS: ADMIT Surgery; ATTEND Surgery
PROC: GENSENT (ICD-10-PCS; 2018-03-12 09:55)

== ENCOUNTER 2018-04-03 14:34 | Inpatient (IN) ==
[2018-04-03] MEDS ORDERED: 0.9 % Sodium Chloride 1,000 ML IVC ONE (14:42)
[2018-04-03] MEDS ORDERED: Isovue-370 500 ML INFUS..BTL IV ONE (14:58)
--- NOTE | 2018-04-03 15:12 | Emergency Department Note ---
Disposition Clinical Impression: Hx of bilateral mastectomy, S/P mastectomy, bilateral, Morbid obesity with BMI of 40.0-44.9, adult, Surgical site infection Disposition: Admitted As Inpatient Condition: Fair Referrals: Jean Steen DO [Primary Care Provider] - Forms: ED Satisfaction Letter Time of Disposition: 17:45 General Adult HPI - General Chief complaint: ED Recheck/Abnormal Lab/Rx Stated complaint: Infected surgical site Time Seen by Provider: 04/03/18 14:37 Source: patient Limitations: no limitations - History of Present Illness Pain Scale: 10 - Related Data Home Medications Medication Instructions Recorded Confirmed Propranolol HCl 40 mg PO BID 02/29/16 03/29/18 ALPRAZolam [Xanax 0.5 MG Tablet] 0.5 mg PO BID 10/15/17 03/29/18 Buspirone HCl [Buspar] 15 mg PO TID 10/15/17 03/29/18 LORazepam [Ativan] 1 mg PO TID PRN 11/09/17 03/29/18 Gabapentin [Neurontin] 600 mg PO TID 03/15/18 03/29/18 Previous Rx's Medication Instructions Recorded Cholecalciferol (D-3) [Vitamin D] 5,000 unit PO DAILY #30 tablet 10/16/17 Dexamethasone [Decadron] 4 mg PO BID #10 tab 01/25/18 Promethazine [Phenergan] 25 mg PO Q6HR PRN #30 tablet 02/23/18 Docusate Sodium [Colace] 100 mg PO BID #30 capsule 03/15/18 HYDROcodone/Acet 5/325 mg [[place] 1 tab PO Q6H PRN 7 Days #28 tab 03/15/18 5-325 mg] Ibuprofen 800 mg PO Q8H PRN #60 tablet 03/15/18 Allergies Allergy/AdvReac Type Severity Reaction Status Date / Time adhesive Allergy Severe See Verified 03/29/18 13:28 Comments Oxycodone [From Percocet] Allergy Itching Verified 03/29/18 13:28 Past Medical History - Past Medical History Medical history: Reports: cancer, GERD, hyperlipidemia, hypertension, thyroid disease, other Surgical history: Reports: appendectomy, breast surgery, colectomy, hysterectomy , knee replacement, sinus surgery, other Psychiatric history: Reports: anxiety, depression - Social History Smoking Status: Current every day smoker Smokeless Tobacco Status: No Alcohol use: Reports: none Drug use: Reports: none Physical Exam - General Limitations: no limitations General appearance: alert Course Vital Signs Temperature 98.4 F 04/03/18 14:36 Pulse Rate 80 04/03/18 14:36 Respiratory Rate 18 04/03/18 14:36 Blood Pressure 130/89 04/03/18 14:36 O2 Sat by Pulse Oximetry 96 04/03/18 14:36 Temperature 98.4 F 04/03/18 14:56 Pulse Rate 84 04/03/18 16:25 Respiratory Rate 19 04/03/18 16:25 Blood Pressure 130/58 04/03/18 16:25 O2 Sat by Pulse Oximetry 99 04/03/18 16:25 Oxygen Delivery Oxygen Delivery Room Air Medical Decision Making - Lab Data Result diagrams: 04/03/18 15:32 04/03/18 15:32 Lab Results 04/03/18 04/03/18 04/03/18 Range/Units 15:32 15:32 15:32 WBC 9.6 (4.3-11.1) K/mcL RBC 2.87 L (3.82-4.97) M/mcL Hgb 8.1 L (11.5-15.4) g/dL Hct 26.6 L (35.3-44.9) % MCV 92.7 (83.0-100.0) fL MCH 28.2 (28.0-33.3) pg MCHC 30.5 L (31.6-35.5) g/dL RDW 18.8 H (11.5-14.5) % Plt Count 487 H (140-400) K/mcL MPV 10.0 (9.4-12.4) fL Immature Gran % 0.8 (0-4) % Seg Neutrophils % 76.6 % Lymphocytes % 12.6 % Monocytes % 9.3 % Eosinophils % 0.6 % Basophils % 0.1 % Neutrophils # 7.3 (1.6-8.9) K/mcL Lymphocytes # 1.2 (0.6-4.6) K/mcL Monocytes # 0.9 (0.0-1.3) K/mcL Eosinophils # 0.1 (0.0-0.6) K/mcL Basophils # 0.0 (0.0-0.2) K/mcL PT 15.3 H (9.4-12.1) Seconds INR 1.4 APTT 31.2 (26.0-36.0) Seconds Sodium 136 (136-145) mEq/L Potassium 3.2 L (3.5-5.1) mEq/L Chloride 100 (98-107) mEq/L Carbon Dioxide 27 (23-29) mEq/L BUN 19 (6-20) mg/dL Creatinine 0.92 (0.60-1.20) mg/dL Est GFR ( Amer) > 60 (> 60) Est GFR (Non-Af Amer) > 60 (> 60) BUN/Creatinine Ratio 21 (6-26) Glucose 113 H (70-105) mg/dL Calculated Osmolality 285 (280-300) Lactic Acid (0.5-2.2) mmol/L Calcium 10.7 H (8.6-10.3) mg/dL Phosphorus 2.5 L (2.7-4.5) mg/dL Magnesium 1.2 L (1.6-2.6) mg/dL Total Bilirubin 0.5 (0.3-1.0) mg/dL Direct Bilirubin 0.1 (0.0-0.2) mg/dL Indirect Bilirubin 0.4 (0.0-1.2) mg/dL AST 23 (13-39) Units/L ALT 27 (7-52) Units/L Alkaline Phosphatase 116 H (34-104) Units/L Troponin I 0.03 (< 0.04) ng/mL Serum Total Protein 6.8 (6.4-8.9) g/dL Albumin 3.6 (3.5-5.7) g/dL Globulin 3.2 (2.4-3.5) g/dL Albumin/Globulin Ratio 1.1 (1.1-2.2) Urine Color (Yellow) Urine Clarity (Clear) Urine pH (5.0-8.0) pH Units Ur Specific [place] (1.010-1.025) Urine Protein (Neg-Trace) mg/dL Urine Glucose (UA) (Normal) mg/dL Urine Ketones (Negative) mg/dL Urine Blood (Negative) Urine Nitrite (Negative) Urine Bilirubin (Negative) Urine Urobilinogen (Normal) mg/dL Ur Leukocyte Esterase (Negative) 04/03/18 04/03/18 Range/Units 15:44 16:17 WBC (4.3-11.1) K/mcL RBC (3.82-4.97) M/mcL Hgb (11.5-15.4) g/dL Hct (35.3-44.9) % MCV (83.0-100.0) fL MCH (28.0-33.3) pg MCHC (31.6-35.5) g/dL RDW (11.5-14.5) % Plt Count (140-400) K/mcL MPV (9.4-12.4) fL Immature Gran % (0-4) % Seg Neutrophils % % Lymphocytes % % Monocytes % % Eosinophils % % Basophils % % Neutrophils # (1.6-8.9) K/mcL Lymphocytes # (0.6-4.6) K/mcL Monocytes # (0.0-1.3) K/mcL Eosinophils # (0.0-0.6) K/mcL Basophils # (0.0-0.2) K/mcL PT (9.4-12.1) Seconds INR APTT (26.0-36.0) Seconds Sodium (136-145) mEq/L Potassium (3.5-5.1) mEq/L Chloride (98-107) mEq/L Carbon Dioxide (23-29) mEq/L BUN (6-20) mg/dL Creatinine (0.60-1.20) mg/dL Est GFR ( Amer) (> 60) Est GFR (Non-Af Amer) (> 60) BUN/Creatinine Ratio (6-26) Glucose (70-105) mg/dL Calculated Osmolality (280-300) Lactic Acid 1.3 (0.5-2.2) mmol/L Calcium (8.6-10.3) mg/dL Phosphorus (2.7-4.5) mg/dL Magnesium (1.6-2.6) mg/dL Total Bilirubin (0.3-1.0) mg/dL Direct Bilirubin (0.0-0.2) mg/dL Indirect Bilirubin (0.0-1.2) mg/dL AST (13-39) Units/L ALT (7-52) Units/L Alkaline Phosphatase (34-104) Units/L Troponin I (< 0.04) ng/mL Serum Total Protein (6.4-8.9) g/dL Albumin (3.5-5.7) g/dL Globulin (2.4-3.5) g/dL Albumin/Globulin Ratio (1.1-2.2) Urine Color Dark Yellow (Yellow) Urine Clarity Clear (Clear) Urine pH 6.0 (5.0-8.0) pH Units Ur Specific [place] 1.023 (1.010-1.025) Urine Protein Trace (Neg-Trace) mg/dL Urine Glucose (UA) Normal (Normal) mg/dL Urine Ketones Negative (Negative) mg/dL Urine Blood Negative (Negative) Urine Nitrite Negative (Negative) Urine Bilirubin Small H (Negative) Urine Urobilinogen Normal (Normal) mg/dL Ur Leukocyte Esterase Trace H (Negative) Attestation Statement - Attestation Attestation: I, Nawaf Strickland DO, examined this patient [id number] and my medical decision-making was reviewed with Dr. John Luu, Resident Physician. I agree with the documented findings, disposition and treatment plan as described except to the extent set forth below. Please see my progress notes for details. 57-year-old female presents emergency room for evaluation of fever or chills pain in her chest and drainage from the surgical site. Patient is recently diagnosed the bilateral breast cancer. He had radical mastectomy without any complication. Several weeks ago she started having swelling irritation and wanted to the chest wall. Blunt have infection the anterior chest wall drain was placed 4 days ago. Patient is been putting out purulent discharge even after being on antibiotics. Patient on arrival here is stable vital signs she is alert she joined she speaks in full sentences. Currently denying chest pain shortness of breath headache vision changes nausea vomiting or diarrhea. No trauma no injuries. She does have fever and chills. Denies any other complaints or issues at this time. Lungs appear to be clear bilaterally surgical site and right-sided chest wall appears to be stable. Left side has a drain in place that is draining mucopurulent discharge. There is warmth to the anterior chest wall and proximal fluid accumulation anterior chest wall. Abdomen is soft nontender nondistended no guarding no rigidity no peritoneal symptoms. She moves all 4 of her extremities without difficulty. Patient has surgical history performed by Dr. Kay. No other acute concerns or issues at this point. IV antibiotics CBC chemistry liver function testing lipase along with lactic acid and blood cultures and wound culture will be collected. Patient will required admission. CT imaging of the chest with IV contrast will be resulted as well. No other acute issues at this time. Patient is otherwise clinically stable. See detailed documentation of the physical exam, medical intervention, medical decision-making and disposition in the resident physician' s note. No critical care applied the patient's treatment course at this time. 1630 Patient has a hemoglobin of 8.1. Patient is not describing any melena hematochezia or hemoptysis or hematemesis. Vital signs remain stable. Occult testing will be offered at this time. Patient otherwise is clinically stable. Antibiotics have been provided. Admission process to be established once CT imaging of the chest is resulted. 1745 CT imaging confirms a very large fluid accumulation on the left lateral chest wall concerning for abscess versus seroma. With the patient's recent fevers and antibiotic use as well as a surgery the operative physician Dr. Aviles was contacted and he come in to evaluate the patient and possibly take the OR for drainage. She will be continued with her nothing by mouth status at this time and then will be admitted after the procedure is completed. No other concerns or issues no this time patient otherwise clinically stable. Will monitor here until admission process and surgical evaluation are established.
--- NOTE | 2018-04-03 15:16 | Emergency Department Note ---
Disposition Clinical Impression: Hx of bilateral mastectomy, S/P mastectomy, bilateral, Morbid obesity with BMI of 40.0-44.9, adult, Surgical site infection Disposition: Admitted As Inpatient Condition: Fair Referrals: Jean Steen DO [Primary Care Provider] - Forms: ED Satisfaction Letter Time of Disposition: 17:56 General Adult HPI - General Chief complaint: ED Recheck/Abnormal Lab/Rx Stated complaint: Infected surgical site Time Seen by Provider: 04/03/18 14:37 Source: patient Mode of arrival: ambulatory Limitations: no limitations Nursing Notes Reviewed: Yes Vital Signs Reviewed: Yes - History of Present Illness HPI Narrative: 57-year-old female presents to the emergency department with extensive medical history including breast cancer more she had bilateral mastectomies done in February. This is done by Dr. Kay. After the surgery she was doing well she started to have infection and had fever so she is receiving by Dr. Kay where approximately 4 days ago she had a Cook catheter placed with suction to remove part of the infection that was in her left side of her breast site. They have been removing quite a bit of pus that is very some foul smelling according to caregivers. They said she has had a fever 102.7. They started her on antibiotics which was Zosyn. Patient presented here she had fevers she was not complaining of any shortness of breath she did have some chest pain says all due to the mastectomy on that side. Says it is painful to touch. She says she is does not feel well overall she does have a lot of chronic pain but there is been no changes in her chronic pain. Patient otherwise has no complete bites including headaches, blurry vision, neck pain, back pain, chills , nausea, vomiting, chest pain, abdominal pain, shortness of breath, changes in bowel movements, pain with urination, pain Tracey on the observation generalized weakness. Pain Scale: 10 - Related Data Home Medications Medication Instructions Recorded Confirmed Propranolol HCl 40 mg PO BID 02/29/16 03/29/18 ALPRAZolam [Xanax 0.5 MG Tablet] 0.5 mg PO BID 10/15/17 03/29/18 Buspirone HCl [Buspar] 15 mg PO TID 10/15/17 03/29/18 LORazepam [Ativan] 1 mg PO TID PRN 11/09/17 03/29/18 Gabapentin [Neurontin] 600 mg PO TID 03/15/18 03/29/18 Previous Rx's Medication Instructions Recorded Cholecalciferol (D-3) [Vitamin D] 5,000 unit PO DAILY #30 tablet 10/16/17 Dexamethasone [Decadron] 4 mg PO BID #10 tab 01/25/18 Promethazine [Phenergan] 25 mg PO Q6HR PRN #30 tablet 02/23/18 Docusate Sodium [Colace] 100 mg PO BID #30 capsule 03/15/18 HYDROcodone/Acet 5/325 mg [[place] 1 tab PO Q6H PRN 7 Days #28 tab 03/15/18 5-325 mg] Ibuprofen 800 mg PO Q8H PRN #60 tablet 03/15/18 Allergies Allergy/AdvReac Type Severity Reaction Status Date / Time adhesive Allergy Severe See Verified 03/29/18 13:28 Comments Oxycodone [From Percocet] Allergy Itching Verified 03/29/18 13:28 All systems ED: reviewed and negative except as stated. Review of Systems: As Per HPI Past Medical History - Past Medical History Attestation: Yes The following information was validated with the patient. Source: patient Medical history: Reports: GERD, hyperlipidemia, hypertension, thyroid disease, other Surgical history: Reports: appendectomy, breast surgery, colectomy, hysterectomy , knee replacement, sinus surgery, other Psychiatric history: Reports: anxiety, depression - Social History Smoking Status: Current every day smoker Smokeless Tobacco Status: No Alcohol use: Reports: none Drug use: Reports: none Physical Exam - General Limitations: no limitations General appearance: alert, in no apparent distress - Head Head exam: atraumatic, normocephalic, normal inspection - Eye Eye exam: Present: normal appearance, PERRL, EOMI - ENT ENT exam: normal exam, normal oropharynx, mucous membranes moist - Neck Neck exam: Present: normal inspection, full ROM, trachea midline - Chest Chest inspection: Present: symmetric chest wall rise, tenderness, other ( Noticeable redness and tender to touch of the left chest area where the meniscectomy was done. There is a cook catheter still in place no fluid seeping outside of the wound. In the catheter in bold there is a purulent fluid in there. There is foul-smelling) - Respiratory Respiratory exam: Present: normal lung sounds bilaterally - Cardiovascular Cardiovascular exam: Present: regular rate, normal rhythm, normal heart sounds - Abdominal Exam Abdominal exam: Present: soft, Non-Tender. Absent: tenderness, distention, guarding, rebound, rigidity - Extremities Exam Extremities exam: Present: normal inspection, full ROM. Absent: tenderness, pedal edema - Back Exam Back exam: Present: normal inspection, full ROM. Absent: tenderness - Neurological Exam Neurological exam: Present: alert, oriented X3 - Skin Skin exam: Present: warm, dry, intact, normal color Course Course Narrative: We will get sepsis and Sirs orders including CBC, BMP, lactate, troponin, EKG, blood cultures as well as wound cultures. We will also start patient on vancomycin give patient IV fluids 30 mL/kg. Patient most likely will be admitted. I will consult the surgeon for recommendations. - Consultations Consultation #1: Spoke with the on-call surgeon Dr. Kay who did do the surgery. He does know the patient. He said patient was recently sent home with Bactrim which based on the recent susceptibilities should be susceptible to the infection. So we did recommend we changed to vancomycin and Rocephin and he will see the patient as patient is admitted. He is okay with her plan. Time: 15:54 Vital Signs Temperature 98.4 F 04/03/18 14:36 Pulse Rate 80 04/03/18 14:36 Respiratory Rate 18 04/03/18 14:36 Blood Pressure 130/89 04/03/18 14:36 O2 Sat by Pulse Oximetry 96 04/03/18 14:36 Temperature 98.4 F 04/03/18 14:56 Pulse Rate 84 04/03/18 16:25 Respiratory Rate 19 04/03/18 16:25 Blood Pressure 130/58 04/03/18 16:25 O2 Sat by Pulse Oximetry 99 04/03/18 16:25 Oxygen Delivery Oxygen Delivery Room Air Medical Decision Making - [facility] Narrative Medical decision making narrative: 57-year-old female presented to the emergency department with Sirs criteria. We immediately gave patient IV fluid bolus to be her 30 mL/kg bolus. Patient also had blood cultures drawn. Labs all came back patient did not have a leukocytosis. She did not was mildly low hemoglobin she declined having a Hemoccult done as she said she has had no rectal bleeding no bloody stool and does not think that is issue she says all due to her chemotherapy. The meniscectomy area on the left side has been hurting more. We did get CT of her chest with contrast that did show a very large abscess. I first contacted the surgeon Dr. Kay who was shoes salesperson and also did the surgery he recommended changing antibiotics to Rocephin and vancomycin and he would see her. I then called him back after the abscess was seen on CT and he said he would take the patient to surgery to drain the abscess. Patient is still nothing by mouth. Patient was also low on magnesium and potassium I did replace both the mag and the potassium. Patient was admitted to the hospitalist service I spoke with the on-call hospitalist who agreed to admit the patient to their service. Patient is admitted in stable condition. We will go to the OR today. Chest CT 04/03/18 14:58 IMPRESSION: 1. Status post bilateral mastectomy. Large irregular peripherally enhancing fluid collection in the left lateral chest wall and axilla measuring approximately 29.4 x 15.4 x 11 cm with adjacent stranding and suspicious for an abscess. A left anterior chest wall percutaneous drainage catheter is in place located within a small pocket of fluid and gas that may communicate with the larger collection in the lateral chest wall and axilla. 2. Smaller 4.3 x 3.3 x 1.5 cm fluid collection in the right lateral chest wall without significant peripheral enhancement. This may represent a postoperative seroma although an abscess is not excluded. 3. Enlarged heterogeneous right thyroid lobe. See recommendations below. RECOMMENDATIONS: Managing Incidental Thyroid Nodule Detected at CT or MRI or US 1. Further evaluation by thyroid Ultrasound recommended for these incidental nodules: Patient Age 18 years or less - Nodule of any size Patient Age 19-34 years old - Nodule 1 cm in size or greater Patient Age 35 years or more - Nodule 1.5 cm in size or greater 2. Follow up thyroid ultrasound also recommend in these scenarios - Solitary nodule with high risk imaging features (locally invasive nodule or suspicious lymph nodes) - Heterogeneous, enlarged thyroid gland. - Increased uptake on PET 3. No further imaging is recommended in the following scenarios - Any nodule not meeting above criteria. - Those patients with limited life expectancy or significant Co-morbidities. Note: These recommendations do not apply to pts. w/ increased risk for thyroid cancer or pts. with symptomatic thyroid disease. Recommendations for f/u of Incidental Thyroid Nodules (ITN) found on CT, MR, NM and Extrathyroidal US are based upon the ACR white paper and Farrell 3-tiered system for managing ITNs: J Am Shola Radiol. 2014;12(2): 143-50 D/ / Seng Jones MD / Seng Jones MD Interpreting Provider: Seng Jones MD - Medical Records Medical records reviewed: Yes I reviewed the patient's medical records. - Lab Data Lab results reviewed: Yes I reviewed the patient's lab results. Result diagrams: 04/03/18 15:32 04/03/18 15:32 Lab Results 04/03/18 04/03/18 04/03/18 Range/Units 15:32 15:32 15:32 WBC 9.6 (4.3-11.1) K/mcL RBC 2.87 L (3.82-4.97) M/mcL Hgb 8.1 L (11.5-15.4) g/dL Hct 26.6 L (35.3-44.9) % MCV 92.7 (83.0-100.0) fL MCH 28.2 (28.0-33.3) pg MCHC 30.5 L (31.6-35.5) g/dL RDW 18.8 H (11.5-14.5) % Plt Count 487 H (140-400) K/mcL MPV 10.0 (9.4-12.4) fL Immature Gran % 0.8 (0-4) % Seg Neutrophils % 76.6 % Lymphocytes % 12.6 % Monocytes % 9.3 % Eosinophils % 0.6 % Basophils % 0.1 % Neutrophils # 7.3 (1.6-8.9) K/mcL Lymphocytes # 1.2 (0.6-4.6) K/mcL Monocytes # 0.9 (0.0-1.3) K/mcL Eosinophils # 0.1 (0.0-0.6) K/mcL Basophils # 0.0 (0.0-0.2) K/mcL PT 15.3 H (9.4-12.1) Seconds INR 1.4 APTT 31.2 (26.0-36.0) Seconds Sodium 136 (136-145) mEq/L Potassium 3.2 L (3.5-5.1) mEq/L Chloride 100 (98-107) mEq/L Carbon Dioxide 27 (23-29) mEq/L BUN 19 (6-20) mg/dL Creatinine 0.92 (0.60-1.20) mg/dL Est GFR ( Amer) > 60 (> 60) Est GFR (Non-Af Amer) > 60 (> 60) BUN/Creatinine Ratio 21 (6-26) Glucose 113 H (70-105) mg/dL Calculated Osmolality 285 (280-300) Lactic Acid (0.5-2.2) mmol/L Calcium 10.7 H (8.6-10.3) mg/dL Phosphorus 2.5 L (2.7-4.5) mg/dL Magnesium 1.2 L (1.6-2.6) mg/dL Total Bilirubin 0.5 (0.3-1.0) mg/dL Direct Bilirubin 0.1 (0.0-0.2) mg/dL Indirect Bilirubin 0.4 (0.0-1.2) mg/dL AST 23 (13-39) Units/L ALT 27 (7-52) Units/L Alkaline Phosphatase 116 H (34-104) Units/L Troponin I 0.03 (< 0.04) ng/mL Serum Total Protein 6.8 (6.4-8.9) g/dL Albumin 3.6 (3.5-5.7) g/dL Globulin 3.2 (2.4-3.5) g/dL Albumin/Globulin Ratio 1.1 (1.1-2.2) Urine Color (Yellow) Urine Clarity (Clear) Urine pH (5.0-8.0) pH Units Ur Specific [place] (1.010-1.025) Urine Protein (Neg-Trace) mg/dL Urine Glucose (UA) (Normal) mg/dL Urine Ketones (Negative) mg/dL Urine Blood (Negative) Urine Nitrite (Negative) Urine Bilirubin (Negative) Urine Urobilinogen (Normal) mg/dL Ur Leukocyte Esterase (Negative) 04/03/18 04/03/18 Range/Units 15:44 16:17 WBC (4.3-11.1) K/mcL RBC (3.82-4.97) M/mcL Hgb (11.5-15.4) g/dL Hct (35.3-44.9) % MCV (83.0-100.0) fL MCH (28.0-33.3) pg MCHC (31.6-35.5) g/dL RDW (11.5-14.5) % Plt Count (140-400) K/mcL MPV (9.4-12.4) fL Immature Gran % (0-4) % Seg Neutrophils % % Lymphocytes % % Monocytes % % Eosinophils % % Basophils % % Neutrophils # (1.6-8.9) K/mcL Lymphocytes # (0.6-4.6) K/mcL Monocytes # (0.0-1.3) K/mcL Eosinophils # (0.0-0.6) K/mcL Basophils # (0.0-0.2) K/mcL PT (9.4-12.1) Seconds INR APTT (26.0-36.0) Seconds Sodium (136-145) mEq/L Potassium (3.5-5.1) mEq/L Chloride (98-107) mEq/L Carbon Dioxide (23-29) mEq/L BUN (6-20) mg/dL Creatinine (0.60-1.20) mg/dL Est GFR ( Amer) (> 60) Est GFR (Non-Af Amer) (> 60) BUN/Creatinine Ratio (6-26) Glucose (70-105) mg/dL Calculated Osmolality (280-300) Lactic Acid 1.3 (0.5-2.2) mmol/L Calcium (8.6-10.3) mg/dL Phosphorus (2.7-4.5) mg/dL Magnesium (1.6-2.6) mg/dL Total Bilirubin (0.3-1.0) mg/dL Direct Bilirubin (0.0-0.2) mg/dL Indirect Bilirubin (0.0-1.2) mg/dL AST (13-39) Units/L ALT (7-52) Units/L Alkaline Phosphatase (34-104) Units/L Troponin I (< 0.04) ng/mL Serum Total Protein (6.4-8.9) g/dL Albumin (3.5-5.7) g/dL Globulin (2.4-3.5) g/dL Albumin/Globulin Ratio (1.1-2.2) Urine Color Dark Yellow (Yellow) Urine Clarity Clear (Clear) Urine pH 6.0 (5.0-8.0) pH Units Ur Specific [place] 1.023 (1.010-1.025) Urine Protein Trace (Neg-Trace) mg/dL Urine Glucose (UA) Normal (Normal) mg/dL Urine Ketones Negative (Negative) mg/dL Urine Blood Negative (Negative) Urine Nitrite Negative (Negative) Urine Bilirubin Small H (Negative) Urine Urobilinogen Normal (Normal) mg/dL Ur Leukocyte Esterase Trace H (Negative) - Radiology Data Radiology results reviewed: Yes I reviewed the patient's radiology results. - EKG Data EKG #1 EKG attestation: Yes I reviewed and interpreted this EKG. EKG results narrative: EKG done at 15 oh a review myself and the attending shows sinus rhythm rate of 81, para 144, QRS 90, QTC 396. Is no acute ST changes no acute T-wave changes no other signs of ischemia. No heart block, hypertrophy, heart strain. No WPW/ [place]/HOCM. Otherwise unchanged when compared with old EKG done 11/10/17 Attestation Statement - Attestation Attestation: I, Nawaf Strickland DO, examined this patient [id number] and my medical decision-making was reviewed with Dr. John Luu, Resident Physician. I agree with the documented findings, disposition and treatment plan as described except to the extent set forth below. Please see my progress notes for details.
[2018-04-03] MEDS ORDERED: *HR* HYDROmorphone (PF) 1 MG/ML SYRINGE IVP ONE ×2 (15:30→17:55)
[2018-04-03] MEDS ORDERED: Ondansetron 4 MG/2 ML VIAL IVP ONE (15:30)
[2018-04-03] MEDS ORDERED: cefTRIAXone 1,000 MG in Water for inj. (sterile) 20 ML 10 ML IVP ONE (15:42)
[2018-04-03 16:01] LABS: Basophils % 0.1 %; Eosinophils # 0.1 K/mcL (0.0-0.6); Eosinophils % 0.6 %; Hematocrit 26.6 % (35.3-44.9); Hemoglobin 8.1 g/dL (11.5-15.4); Immature Granulocytes % 0.8 % (0-4); Lymphocytes # 1.2 K/mcL (0.6-4.6); Lymphocytes % 12.6 %; Mean Corpuscular HGB Conc 30.5 g/dL (31.6-35.5); Mean Corpuscular Hemoglobin 28.2 pg (28.0-33.3); Mean Corpuscular Volume 92.7 fL (83.0-100.0); Monocytes # 0.9 K/mcL (0.0-1.3); Monocytes % 9.3 %; Neutrophils # 7.3 K/mcL (1.6-8.9); Platelet Count 487 K/mcL (140-400); Red Blood Count 2.87 M/mcL (3.82-4.97); Red Cell Distribution Width 18.8 % (11.5-14.5); Segmented Neutrophils % 76.6 %
[2018-04-03 16:06] LABS: INR 1.4; Prothrombin Time 15.3 Seconds (9.4-12.1)
[2018-04-03 16:08] LABS: Activated Partial Thrombo Time 31.2 Seconds (26.0-36.0)
[2018-04-03 16:20] LABS: Troponin I 0.03 ng/mL (< 0.04)
[2018-04-03 16:21] LABS: Alanine Aminotransferase 27 Units/L (7-52); Albumin 3.6 g/dL (3.5-5.7); Albumin/Globulin Ratio 1.1 (1.1-2.2); Alkaline Phosphatase 116 Units/L (34-104); Aspartate Amino Transferase 23 Units/L (13-39); BUN/Creatinine Ratio 21 (6-26); Bilirubin,Direct 0.1 mg/dL (0.0-0.2); Bilirubin,Indirect 0.4 mg/dL (0.0-1.2); Bilirubin,Total 0.5 mg/dL (0.3-1.0); Blood Urea Nitrogen 19 mg/dL (6-20); Calcium 10.7 mg/dL (8.6-10.3); Carbon Dioxide 27 mEq/L (23-29); Chloride 100 mEq/L (98-107); Globulin 3.2 g/dL (2.4-3.5); Glucose 113 mg/dL (70-105); Magnesium 1.2 mg/dL (1.6-2.6); Osmolality,Calculated 285 (280-300); Phosphorous 2.5 mg/dL (2.7-4.5); Potassium 3.2 mEq/L (3.5-5.1); Sodium 136 mEq/L (136-145); Total Protein 6.8 g/dL (6.4-8.9); eGFR For Non-African Americans > 60 (> 60)
[2018-04-03 16:28] LABS: Bilirubin,Urine Small (Negative); Blood,Urine Negative (Negative); Clarity,Urine Clear (Clear); Color,Urine Dark Yellow (Yellow); Glucose,Urine (UA) Normal (Normal); Ketones,Urine Negative (Negative); Leukocyte Esterase,Urine Trace (Negative); Nitrite,Urine Negative (Negative); Protein,Urine Trace mg/dL (Neg-Trace); Specific Gravity,Urine 1.023 (1.010-1.025); Urobilinogen,Urine Normal (Normal)
[2018-04-03 16:30] LABS: Bacteria,Urine None Seen per hpf (None-Few); Squamous Epithelial Cell,Urine Many per lpf (None-Few); WBC,Urine 0-3 per hpf (0-3)
[2018-04-03] MEDS ORDERED: Naloxone 0.4 MG/ML INJ IVP PRN (17:54)
[2018-04-03] MEDS ORDERED: Acetaminophen 325 MG TABLET PO PRN (17:59)
[2018-04-03] MEDS ORDERED: Lidocaine -MPF 1% 5 ML AMPUL INFILT ONE (18:05)
--- NOTE | 2018-04-03 18:27 | Internal Med History&Physical ---
Date of Encounter: 04/03/18 Time of Encounter: 18:00 Internal Medicine - H&P: HPI Chief complaint: Fevers and chills not feeling well s/p mastectomy History of present illness: Ms. Jennings is a 57 year old female with pmh of hypertension, obesity, bilateral breast cancer s/p chemotherapy and mastectomy done on March 12. Patient notes that since the surgery she hasn't been feeling well, with mostly fatigue and chills and nausea and a loss of appetite intermittently. On thursday of this week, she began to feel really sick with fevers and chills and had noticed she had a lot of pus draining from the breast. She went to DR verdugo and had a drain placed which has been draining a lot of pus, she was also sent home on bactrim. Today she spiked a fever of 102.3 and had fevers and chills and decided to come to the ER. In the ER, she was given vanc and ceftriaxone and surgery has been consulted. A CT scan was done showing an abscess in the left chest wall, and an abscess vs seroma in the right chest. Past Med Surg Social Fam HX - Past Medical History Medical history: GERD, hyperlipidemia, hypertension, thyroid disease, other Additional medical history: sleep apnea. Fuentes's Palsy. Nasal Septal Deviation. Obesity Psychiatric history: anxiety, depression - Past Surgical History Surgical History: appendectomy, breast surgery, colectomy, hysterectomy, knee replacement, sinus surgery, other Additional surgical history: port,egd,colonoscopy, t&a, double mastectomy - Social History Smoking Status: Current every day smoker Smokeless Tobacco Status: No Alcohol use: none Drug use: none - Family History Mother Hx Family Cardiac Disorders: Yes (HTN, HLD, stents) Internal Medicine - H&P: Meds Propranolol HCl 40 mg PO BID 02/29/16 [History] ALPRAZolam [Xanax 0.5 MG Tablet] 0.5 mg PO BID 10/15/17 [History] Buspirone HCl [Buspar] 15 mg PO TID 10/15/17 [History] Cholecalciferol (D-3) [Vitamin D] 5,000 unit PO DAILY #30 tablet 10/16/17 [Rx] LORazepam [Ativan] 1 mg PO TID PRN 11/09/17 [History] Dexamethasone [Decadron] 4 mg PO BID #10 tab 08/06/18 [Rx] Promethazine [Phenergan] 25 mg PO Q6HR PRN #30 tablet 02/23/18 [Rx] Docusate Sodium [Colace] 100 mg PO BID #30 capsule 03/15/18 [Rx] Gabapentin [Neurontin] 600 mg PO TID 03/15/18 [History] HYDROcodone/Acet 5/325 mg [Silex 5-325 mg] 1 tab PO Q6H PRN 7 Days #28 tab 03/15 [Rx] Ibuprofen 800 mg PO Q8H PRN #60 tablet 03/15/18 [Rx] 3 Allergy/AdvReac Type Severity Reaction Status Date / Time adhesive Allergy Severe See Verified 03/29/18 13:28 Comments Oxycodone [From Percocet] Allergy Itching Verified 03/29/18 13:28 All Systems PM: A 10-system review of systems was performed and is negative for pertinent findings except as documented above in the HPI. - Constitutional Constitutional: as per HPI, excessive sweating, fever(s), lethargy, malaise - EENT Eyes: no change in vision, no discharge, no pain, no photophobia Ears: no ear discharge, no ear pain, no tinnitus Nose, mouth and throat: no dysphagia, no nasal discharge, no neck pain, no sore throat - Cardiovascular Cardiovascular ROS IM: dyspnea, no chest pain, no diaphoresis, no lightheadedness, no palpitations, no syncope - Respiratory Respiratory: no cough, no dyspnea, no wheezing, no excessive phlegm production - Gastrointestinal Gastrointestinal: no abdominal pain, no diarrhea, no hematemesis, no hematochezia, no melena, no nausea, no vomiting - Genitourinary Genitourinary: no change in urinary stream, no dysuria, no flank pain, no hematuria - Musculoskeletal Musculoskeletal ROS IM: no numbness, no tingling - Integumentary Integumentary IM: as per HPI, no rash, no unusual bruising Additional comments: draining breast abscess - Neurological Neurological ROS: no confusion, no convulsions, no focal weakness, no numbness, no tingling, no tremor(s) - Hematologic/Lymphatic Hematologic/Lymphatic: no easy bruising - Constitutional Vitals: Temp Pulse Resp BP Pulse Ox 98.4 F 81 20 128/78 100 04/03/18 14:56 04/03/18 18:16 04/03/18 18:16 04/03/18 18:16 04/03/18 18:16 Exam: NAD - Head Head exam: Present: atraumatic, normocephalic - Eye Eye exam: Present: PERRL, conjuntiva pink, sclera anicteric Pupils: Present: PERRL - Neck Neck exam general surgery: Present: supple, trachea midline. Absent: lymphadenopathy - Respiratory Respiratory exam: Present: CTAB. Absent: accessory muscle use, rales, rhonchi, wheezes - Cardiovascular Cardiovascular exam: Present: RRR, +S1, +S2. Absent: diastolic murmur, gallop, rubs, systolic murmur - GI/Abdominal GI/Abdominal exam: Present: normal bowel sounds, soft, no peritoneal signs. Absent: distended, tenderness - Extremities Exam Extremities exam: Present: warm, radial pulses palpable and symmetrical. Absent : calf tenderness, cyanotic, pedal edema - Neurological Exam Neurological exam: Present: CN II-XII intact, oriented X3, no focal deficits. Absent: pronater drift, facial droop, speech deficit - Skin Skin exam: Present: dry, intact Additional comments: left breast has drain and chemo port in place Internal Med - H&P Results - Labs CBC & Chem 7: 04/03/18 15:32 04/03/18 15:32 - Assessment and plan (1) Sepsis Current Visit: Yes Status: Acute Assessment and plan: Pt has draining left breast abscess s/p bilateral mastectomy. HAd a fever of 102.3 Will obtain blood cultures. Start on vanc and zosyn. Surgery consulted Qualifiers: Qualified Code(s): A41.9 - Sepsis, unspecified organism (2) Surgical site infection Current Visit: Yes Status: Acute Assessment and plan: See #1. On antibiotics. Follow up cultures (3) S/P mastectomy, bilateral Current Visit: Yes Status: Acute Assessment and plan: Surgery on board for abscess drainage (4) Morbid obesity with BMI of 40.0-44.9, adult Current Visit: Yes Status: Chronic Assessment and plan: Diet and exercise (5) HTN (hypertension) Current Visit: No Status: Chronic Assessment and plan: BP stable Qualifiers: Hypertension type: essential hypertension Qualified Code(s): I10 - Essential (primary) hypertension (6) Hypokalemia Current Visit: Yes Status: Acute Assessment and plan: Replace potassium (7) DVT prophylaxis Current Visit: Yes Status: Acute Assessment and plan: SCDs (8) Anemia Current Visit: Yes Status: Acute Assessment and plan: Likely secondary to chronic disease. Monitor hemoglobin and hematocrit Qualifiers: Qualified Code(s): D64.9 - Anemia, unspecified - Time Spent With Patient Total time spent is greater than 50% in coordination of care (as documented) at patient's floor/unit and/or counseling patient:
[2018-04-03 18:57] LABS: Hyaline Casts,Urine Few per lpf (None-Few); Mucus,Urine Many (Few)
[2018-04-03] MEDS: 0.9 % Sodium Chloride 1,000 ML IVC SCH (20:06)
[2018-04-03] MEDS: ALPRAZolam 0.5 MG TABLET PO SCH (20:45)
[2018-04-03] MEDS: Potassium Chloride Elixir 20 MEQ/15 ML UDC PO SCH (20:45)
[2018-04-03] MEDS ORDERED: NON-FORMULARY MEDICATION 1 EACH EACH (Gabapentin [Neurontin] 600 MG) PO SCH (21:00)
[2018-04-03] MEDS: Gabapentin 300 MG CAPSULE PO SCH (21:16)
[2018-04-04] MEDS: Piperacillin/Tazobactam 3.375 GM in 0.9 % Sodium Chloride Mini Bag 100 ML IVPB SCH ×4 (00:07→23:54)
[2018-04-04] MEDS: Potassium Chloride Elixir 20 MEQ/15 ML UDC PO SCH (00:08)
[2018-04-04] MEDS: *HR* HYDROcodone/Acet 5/325 mg TABLET PO PRN ×4 (00:15→21:30)
[2018-04-04 05:45] LABS: Basophils % 0.1 %; Eosinophils # 0.1 K/mcL (0.0-0.6); Eosinophils % 1.7 %; Hematocrit 23.1 % (35.3-44.9); Hemoglobin 6.9 g/dL (11.5-15.4); Immature Granulocytes % 0.6 % (0-4); Lymphocytes # 1.4 K/mcL (0.6-4.6); Mean Corpuscular HGB Conc 29.9 g/dL (31.6-35.5); Mean Corpuscular Hemoglobin 28.6 pg (28.0-33.3); Mean Corpuscular Volume 95.9 fL (83.0-100.0); Mean Platelet Volume 10.4 fL (9.4-12.4); Monocytes # 0.9 K/mcL (0.0-1.3); Monocytes % 11.2 %; Neutrophils # 5.4 K/mcL (1.6-8.9); Platelet Count 393 K/mcL (140-400); Red Blood Count 2.41 M/mcL (3.82-4.97); Red Cell Distribution Width 18.9 % (11.5-14.5); Segmented Neutrophils % 68.4 %
[2018-04-04] MEDS: 0.9 % Sodium Chloride 1,000 ML IVC SCH (05:51)
[2018-04-04 06:14] LABS: BUN/Creatinine Ratio 19 (6-26); Blood Urea Nitrogen 15 mg/dL (6-20); Calcium 9.8 mg/dL (8.6-10.3); Carbon Dioxide 23 mEq/L (23-29); Chloride 109 mEq/L (98-107); Glucose 99 mg/dL (70-105); Magnesium 1.3 mg/dL (1.6-2.6); Osmolality,Calculated 287 (280-300); Phosphorous 2.5 mg/dL (2.7-4.5); Potassium 4.1 mEq/L (3.5-5.1); Sodium 138 mEq/L (136-145); eGFR For Non-African Americans > 60 (> 60)
[2018-04-04] MEDS: Cholecalciferol (D-3) 1,000 UNIT TABLET PO SCH (08:23)
[2018-04-04] MEDS: ALPRAZolam 0.5 MG TABLET PO SCH ×2 (08:23→20:19)
[2018-04-04] MEDS: Gabapentin 300 MG CAPSULE PO SCH ×3 (08:23→20:20)
[2018-04-04] MEDS ORDERED: 0.9 % Sodium Chloride 500 ML ONE ×2 (10:34→12:58)
--- NOTE | 2018-04-04 10:38 | Internal Med Progress Note ---
<Pablo Shanks - Last Filed: 04/04/18 16:14> Hospitalist Progress Note - Encounter Date of Encounter: 04/04/18 Time of Encounter: 12:30 - Subjective Interval History: 57F PMHx hypertension, obesity, BL breast cancer s/p chemotherapy and mastectomy on march 12, 2018 presents with fevers and chills. Patient admits to fatigue, chills, nausea, loss of appetite since her surgery. She also admits to pus draining from the breast after the surgery. Drain was placed to drain chest wall abscess on 04/01/18 s/p I&D and she was sent home with Bactrim. However, she spiked fever of 102.3F and decided to come to the ED. She was given vanc and ceftriaxone and now on Zosyn and vanc. Today, patient reports that she is doing a lot better. Denies fever since admission. Denies chills, nausea, vomiting. She is hungry and would like to eat. Voiding without difficulty. +BM. Denies abdominal pain, diarrhea. No further acute complaints. - Exam Vitals: Temp Pulse Resp BP Pulse Ox 97.8 F 71 16 118/60 98 04/04/18 10:32 04/04/18 10:32 04/04/18 10:32 04/04/18 10:32 04/04/18 10:32 Exam: NAD - Head Head exam: Present: atraumatic, normocephalic - Eye Eye exam: Present: conjuntiva pink, sclera anicteric - Neck Neck exam general surgery: Present: supple, trachea midline. Absent: lymphadenopathy - Respiratory Respiratory exam: Present: CTAB. Absent: accessory muscle use, rales, rhonchi, wheezes - Cardiovascular Cardiovascular exam: Present: RRR, +S1, +S2. Absent: diastolic murmur, gallop, rubs, systolic murmur - GI/Abdominal GI/Abdominal exam: Present: normal bowel sounds, soft, no peritoneal signs. Absent: distended, tenderness - Extremities Exam Extremities exam: Present: warm, radial pulses palpable and symmetrical. Absent : calf tenderness, cyanotic, pedal edema - Neurological Exam Neurological exam: Present: CN II-XII intact, oriented X3, no focal deficits. Absent: pronater drift, facial droop, speech deficit - Skin Skin exam: Present: dry, intact - Assessment and Plan (1) Sepsis Current Visit: Yes Status: Acute Assessment and Plan: (1) Sepsis Current Visit: Yes Status: Acute Assessment and plan: Pt has draining left breast abscess s/p bilateral mastectomy on March 12, 2018. Had a fever of 102.3. RR>20 Pending blood cultures. Continue vanc and zosyn. Surgery consulted and recommend continued antibiotics. Decreased hemoglobin (6.9) likely secondary to surgery. Patient received 2 units RBCs and repeat hemoglobin back to baseline at 9.4 Continue sepsis protocol Continue to monitor H/H q8 hours x2 Pending BCx Qualifiers: Qualified Code(s): A41.9 - Sepsis, unspecified organism (2) Surgical site infection Current Visit: Yes Status: Acute Assessment and plan: Patient had bilateral mastectomy on February and developed abscess requiring I&D POD#4 and percutaneous drain placement. surgery is on board. Continue with antibiotics vanc + zosyn. Will de-escalate as appropriate. (3) S/P mastectomy, bilateral Current Visit: Yes Status: Acute Assessment and plan: BL mastectomy on February (4) Morbid obesity with BMI of 40.0-44.9, adult Current Visit: Yes Status: Chronic Assessment and plan: (5) HTN (hypertension) Current Visit: No Status: Chronic Assessment and plan: BP stable Qualifiers: Hypertension type: essential hypertension Qualified Code(s): I10 - Essential (primary) hypertension (6) Hypokalemia Current Visit: Yes Status: Acute Assessment and plan: Replaced potassium. Recheck with AM labs (7) DVT prophylaxis Current Visit: Yes Status: Acute Assessment and plan: SCDs in the setting of possible GI bleed vs other active bleed (8) Anemia Current Visit: Yes Status: Acute Assessment and plan: Secondary to chronic disease vs active bleed. Hemoglobin dropped to 6.9, back to baseline >9 after 2 units RBCs. Will order iron profile. Monitor hemoglobin and hematocrit [id number] x 2 - Time Spent with Patient Total time spent is greater than 50% in coordination of care (as documented) at patient's floor/unit and/or counseling patient: Greater than 35 minutes Plan of Care Discussed with: patient Internal Medicine: Result - Labs CBC & Chem 7: 04/04/18 15:21 04/04/18 04:37 Labs: Short CBC 04/04/18 Range/Units 04:37 WBC 7.8 (4.3-11.1) K/mcL Hgb 6.9 L (11.5-15.4) g/dL Hct 23.1 L (35.3-44.9) % Plt Count 393 (140-400) K/mcL Neutrophils # 5.4 (1.6-8.9) K/mcL BMP 04/04/18 04:37 Sodium 138 Potassium 4.1 D Chloride 109 H Carbon Dioxide 23 BUN 15 Creatinine 0.77 Glucose 99 Calcium 9.8 - ABG Interpretation ABG results: PT/INR, D-dimer PT 15.3 Seconds (9.4-12.1) H 04/03/18 15:32 Consult Discharge Plan - Plan Referrals: Jean Steen DO [Primary Care Provider] - <Carlos Velazquez - Last Filed: 04/04/18 17:25> Hospitalist Progress Note - Encounter Date of Encounter: 04/04/18 - Exam Vitals: Temp Pulse Resp BP Pulse Ox 98.0 F 72 18 107/69 97 04/04/18 16:25 04/04/18 16:25 04/04/18 16:25 04/04/18 16:25 04/04/18 16:25 - Assessment and Plan (1) Sepsis Current Visit: Yes Status: Acute (2) Surgical site infection Current Visit: Yes Status: Acute (3) S/P mastectomy, bilateral Current Visit: Yes Status: Acute (4) Morbid obesity with BMI of 40.0-44.9, adult Current Visit: Yes Status: Chronic (5) HTN (hypertension) Current Visit: No Status: Chronic (6) Hypokalemia Current Visit: Yes Status: Acute (7) DVT prophylaxis Current Visit: Yes Status: Acute (8) Anemia Current Visit: Yes Status: Acute - Time Spent with Patient Total time spent is greater than 50% in coordination of care (as documented) at patient's floor/unit and/or counseling patient: Internal Medicine: Result - Labs CBC & Chem 7: 04/04/18 15:21 04/04/18 04:37 Labs: Short CBC 04/04/18 04/04/18 Range/Units 04:37 15:21 WBC 7.8 8.6 (4.3-11.1) K/mcL Hgb 6.9 L 9.4 L D (11.5-15.4) g/dL Hct 23.1 L 30.3 L (35.3-44.9) % Plt Count 393 413 H (140-400) K/mcL Neutrophils # 5.4 5.6 (1.6-8.9) K/mcL BMP 04/04/18 04:37 Sodium 138 Potassium 4.1 D Chloride 109 H Carbon Dioxide 23 BUN 15 Creatinine 0.77 Glucose 99 Calcium 9.8 - ABG Interpretation ABG results: PT/INR, D-dimer PT 15.3 Seconds (9.4-12.1) H 04/03/18 15:32 - Attending Attestation Seen and assessed. Agree with plan per resident Plan Sepsis 2/2 to breast abscess. Continue Iv antibiotics. S/P incision and drainage by surgery Anemia with acute blood loss. Possibly surgery related. Obtain hemoccult blood. Transfuse 2 units PRBC <Pablo Shanks - Last Filed: 04/04/18 16:14> (1) Sepsis Qualifiers: Qualified Code(s): A41.9 - Sepsis, unspecified organism <Carlos Velazquez - Last Filed: 04/04/18 17:25> (1) Sepsis Qualifiers: Qualified Code(s): A41.9 - Sepsis, unspecified organism (5) HTN (hypertension) Qualifiers: Hypertension type: essential hypertension Qualified Code(s): I10 - Essential (primary) hypertension (8) Anemia Qualifiers: Qualified Code(s): D64.9 - Anemia, unspecified
[2018-04-04] MEDS ORDERED: *HR* HYDROcodone/Acet 5/325 mg TABLET PO PRN (11:45)
--- NOTE | 2018-04-04 14:17 | General Surgery Progress Note ---
Date of Encounter: 04/04/18 Time of Encounter: 14:13 - Assessment and Plan (1) S/P mastectomy, bilateral Current Visit: Yes Status: Acute POD 5 I&D of left breast abscess. Elective bilateral mastectomy by Dr Kay on 03-12 with pathology report back - continue supportive care and pain management - wound care starting tonight - may have regular diet - agree with transfusion per primary team Surgery will continue to follow (2) Surgical site infection Current Visit: Yes Status: Acute (3) Acute blood loss anemia Current Visit: No Status: Acute HgB 6.9 from 8.1 Subjective Patient reports: still having pain, afebrile, fever (feels like ), other Narrative: 57 y/o female breast cancer status pot bilat mastectomy on 03-12 admitted for sepsis due to left breast abscess after tailed put patient treatment with a I&D on 03-31 followed by Bactrim antibiotics. She was prompted to return to hospital after home health nurse notes that abscess remained firm. She admits to fatigue since last discharged on 03-15. She has had decreased appetite and decreased interest. Objective Vital Signs - Last 8 Hours Temp Pulse Resp BP Pulse Ox 04/04/18 13:13 97.7 F 18 114/76 97 04/04/18 13:00 97.7 F 71 18 114/76 04/04/18 11:08 97.8 F 75 18 116/76 99 04/04/18 10:53 97.5 F L 71 18 103/61 04/04/18 10:47 97.5 F L 71 18 103/61 97 04/04/18 10:32 97.8 F 71 16 118/60 98 04/04/18 08:34 98 04/04/18 06:52 98.2 F 76 16 140/72 98 Intake and Output 04/03/18 04/04/18 04/04/18 23:59 07:59 15:59 Intake Total 1350 / 1350 960 / 960 Output Total 150 / 150 Balance 1200 / 1200 960 / 960 Intake: IV Fluids 1350 / 1350 50 / 50 0.9 % Sodium Chloride 1,000 ML 1000 / 1000 @ 100 mls/hr IVC .Q10H [facility] Rx#: [id number] Zosyn 3.375 GM In 0.9 % Sodium 100 / 100 50 / 50 Chloride (Mini-Bag +) 100 ML @ 25 mls/hr IVPB Q8HR [facility] Rx#: [id number] Vancocin 1,250 MG In 0.9 % 250 / 250 Sodium Chloride 250 ML @ 167 mls/hr IVPB Q12H [facility] Rx#: [id number] Oral 560 / 560 Blood Product 350 / 350 Rbcs Leuko Poor As-1 Unit 0 / 0 [id number] Rbcs Leuko Poor As-1 Unit 350 / 350 [id number] Output: Urine 150 / 150 Other: Meal Breakfast Stool Size Large Moderate Stool Consistency liquid liquid Stool Color Brown Brown Green # Voids 1 # Bowel Movements 1 Weight 86.4 kg 86.4 kg Patient Weight 04/04/18 23:59 Weight 86.4 kg - General physical appearance well developed, well nourished, no distress - Eyes normal ocular movement - ENT normal pinna, normal nares, normal mucosa - Respiratory normal expansion, normal respiratory effort, clear to auscultation - Cardiovascular Cardiovascular exam: Present: RRR, no murmurs/rubs/gallops - Abdomen Abdomen: Present: bowel sounds present, soft, distended, tender. Absent: guarding, rebound Abdominal Tenderness: LUQ (chronic mild) - Incision Incision: Present: draining, red, open - Integumentary no rash, no growths, no abnormal pigmentation - Neurologic CN 2-12 grossly intact, normal coordination, normal sensation - Musculoskeletal normal gait, normal posture - Psychiatric oriented to time, oriented to person, oriented to place, speech is normal, memory intact - Additional Exam Breast are post masectomy with granulous tissue at incisions. Tender firm nodule approx 4 cm in diameter just left of sternum. Open wound lateral chest near axilla is open and draining red - Labs 04/04/18 15:21 04/04/18 04:37 Diabetes panel 04/04/18 Range/Units 04:37 Sodium 138 (136-145) mEq/L Potassium 4.1 D (3.5-5.1) mEq/L Chloride 109 H (98-107) mEq/L Carbon Dioxide 23 (23-29) mEq/L BUN 15 (6-20) mg/dL Creatinine 0.77 (0.60-1.20) mg/dL Glucose 99 (70-105) mg/dL Calcium 9.8 (8.6-10.3) mg/dL Calcium panel 04/04/18 Range/Units 04:37 Calcium 9.8 (8.6-10.3) mg/dL Phosphorus 2.5 L (2.7-4.5) mg/dL Pituitary panel 04/04/18 Range/Units 04:37 Sodium 138 (136-145) mEq/L Potassium 4.1 D (3.5-5.1) mEq/L Chloride 109 H (98-107) mEq/L Carbon Dioxide 23 (23-29) mEq/L BUN 15 (6-20) mg/dL Creatinine 0.77 (0.60-1.20) mg/dL Glucose 99 (70-105) mg/dL Calcium 9.8 (8.6-10.3) mg/dL Adrenal panel 04/04/18 Range/Units 04:37 Sodium 138 (136-145) mEq/L Potassium 4.1 D (3.5-5.1) mEq/L Chloride 109 H (98-107) mEq/L Carbon Dioxide 23 (23-29) mEq/L BUN 15 (6-20) mg/dL Creatinine 0.77 (0.60-1.20) mg/dL Glucose 99 (70-105) mg/dL Calcium 9.8 (8.6-10.3) mg/dL Consult Discharge Plan - Plan Referrals: Jean Steen DO [Primary Care Provider] -
[2018-04-04 15:34] LABS: Basophils % 0.4 %; Eosinophils # 0.2 K/mcL (0.0-0.6); Eosinophils % 2.2 %; Hematocrit 30.3 % (35.3-44.9); Immature Granulocytes % 0.9 % (0-4); Lymphocytes # 1.8 K/mcL (0.6-4.6); Mean Corpuscular Hemoglobin 29.2 pg (28.0-33.3); Mean Corpuscular Volume 94.1 fL (83.0-100.0); Monocytes # 0.9 K/mcL (0.0-1.3); Monocytes % 10.5 %; Neutrophils # 5.6 K/mcL (1.6-8.9); Platelet Count 413 K/mcL (140-400); Red Blood Count 3.22 M/mcL (3.82-4.97); Red Cell Distribution Width 18.5 % (11.5-14.5)
[2018-04-04 15:35] LABS: Hemoglobin 9.4 g/dL (11.5-15.4)
[2018-04-04] MEDS: Pantoprazole 40 MG VIAL IVP SCH (18:04)
[2018-04-04 20:00] LABS: Basophils % 0.4 %; Eosinophils # 0.2 K/mcL (0.0-0.6); Eosinophils % 2.5 %; Hemoglobin 9.5 g/dL (11.5-15.4); Immature Granulocytes % 1.2 % (0-4); Lymphocytes # 1.7 K/mcL (0.6-4.6); Lymphocytes % 20.4 %; Mean Corpuscular HGB Conc 31.7 g/dL (31.6-35.5); Mean Corpuscular Hemoglobin 29.6 pg (28.0-33.3); Mean Corpuscular Volume 93.5 fL (83.0-100.0); Mean Platelet Volume 9.9 fL (9.4-12.4); Monocytes # 0.8 K/mcL (0.0-1.3); Monocytes % 9.8 %; Neutrophils # 5.3 K/mcL (1.6-8.9); Platelet Count 411 K/mcL (140-400); Red Blood Count 3.21 M/mcL (3.82-4.97); Red Cell Distribution Width 18.6 % (11.5-14.5); Segmented Neutrophils % 65.7 %
[2018-04-04] MEDS: Magnesium Oxide 400 MG TABLET PO SCH (20:19)
[2018-04-05] MEDS ORDERED: OXYCODONE Oral CONC 10 MG/0.5 ML ORAL.SYG SL ONE (00:42)
[2018-04-05 03:39] LABS: Basophils % 0.3 %; Eosinophils # 0.2 K/mcL (0.0-0.6); Hematocrit 30.1 % (35.3-44.9); Hemoglobin 9.4 g/dL (11.5-15.4); Immature Granulocytes % 1.4 % (0-4); Lymphocytes # 1.6 K/mcL (0.6-4.6); Lymphocytes % 23.1 %; Mean Corpuscular HGB Conc 31.2 g/dL (31.6-35.5); Mean Corpuscular Hemoglobin 29.3 pg (28.0-33.3); Mean Corpuscular Volume 93.8 fL (83.0-100.0); Mean Platelet Volume 9.9 fL (9.4-12.4); Monocytes # 0.6 K/mcL (0.0-1.3); Monocytes % 8.7 %; Neutrophils # 4.4 K/mcL (1.6-8.9); Platelet Count 414 K/mcL (140-400); Red Blood Count 3.21 M/mcL (3.82-4.97); Segmented Neutrophils % 63.5 %
[2018-04-05 03:54] LABS: % Iron Saturation 13 % (15-50); BUN/Creatinine Ratio 14 (6-26); Blood Urea Nitrogen 10 mg/dL (6-20); Calcium 10.2 mg/dL (8.6-10.3); Carbon Dioxide 24 mEq/L (23-29); Chloride 111 mEq/L (98-107); Glucose 100 mg/dL (70-105); Iron 27 mcg/dL (50-170); Osmolality,Calculated 291 (280-300); Potassium 3.8 mEq/L (3.5-5.1); Sodium 141 mEq/L (136-145); Transferrin 151 mg/dL (203-362); eGFR For Non-African Americans > 60 (> 60)
[2018-04-05] MEDS: Pantoprazole 40 MG VIAL IVP SCH (06:44)
[2018-04-05] MEDS: *HR* HYDROcodone/Acet 5/325 mg TABLET PO PRN ×3 (07:13→22:29)
[2018-04-05] MEDS ORDERED: Aminoglycoside Consult 1 EACH MC ONE (07:22)
[2018-04-05] MEDS: Magnesium Oxide 400 MG TABLET PO SCH ×2 (08:13→20:20)
[2018-04-05] MEDS: Cholecalciferol (D-3) 1,000 UNIT TABLET PO SCH (08:13)
[2018-04-05] MEDS: Piperacillin/Tazobactam 3.375 GM in 0.9 % Sodium Chloride Mini Bag 100 ML IVPB SCH (08:13)
[2018-04-05] MEDS: Gabapentin 300 MG CAPSULE PO SCH ×3 (08:13→20:22)
[2018-04-05] MEDS: ALPRAZolam 0.5 MG TABLET PO SCH ×2 (08:14→20:21)
--- NOTE | 2018-04-05 09:09 | Physician Discharge Referral ---
Home Health/Hosp Referral Info Transfer to: Home Health - Diagnosis (1) Sepsis Priority: Primary Status: Acute (2) Surgical site infection Priority: Primary Status: Acute (3) S/P mastectomy, bilateral Priority: Primary Status: Acute (4) Morbid obesity with BMI of 40.0-44.9, adult Priority: Primary Status: Chronic (5) HTN (hypertension) Priority: Primary Status: Chronic (6) Hypokalemia Status: Acute (7) DVT prophylaxis Status: Acute (8) Anemia Status: Acute - Respiratory Orders Smoking Cessation: Smoking cessation has been advised. For more information, call the [place] Tobacco Quit Line at 9-721-CQLG-NOW. - Diet/Nutrition Diet/Nutrition Orders: Cardiac - Services Needed Following services are medically necessary services: Nursing, Home Health Aide, Physical Therapy - Transfer Medications Prescriptions: Amoxicillin/Clavulanate [Augmentin] 875 mg PO BIDWM 5 Days #5 tablet Omeprazole [PriLOSEC] 40 mg PO DAILY@0630 30 Days #30 capsule. Sulfamethoxazole/Trimeth DS [Bactrim DS] 1 each PO BID 5 Days #10 tablet Home Medications: Propranolol HCl 40 mg PO BID 02/29/16 [History] ALPRAZolam [Xanax 0.5 MG Tablet] 0.5 mg PO BID 10/15/17 [History] Buspirone HCl [Buspar] 15 mg PO TID 10/15/17 [History] Cholecalciferol (D-3) [Vitamin D] 5,000 unit PO DAILY #30 tablet 10/16/17 [Rx] LORazepam [Ativan] 1 mg PO TID PRN 11/09/17 [History] Dexamethasone [Decadron] 4 mg PO BID #10 tab 01/25/18 [Rx] Promethazine [Phenergan] 25 mg PO Q6HR PRN #30 tablet 02/23/18 [Rx] Docusate Sodium [Colace] 100 mg PO BID #30 capsule 03/15/18 [Rx] Gabapentin [Neurontin] 600 mg PO TID 03/15/18 [History] HYDROcodone/Acet 5/325 mg [Newell 5-325 mg] 1 tab PO Q6H PRN 7 Days #28 tab 03/15 [Rx] Ibuprofen 800 mg PO Q8H PRN #60 tablet 03/15/18 [Rx] Amoxicillin/Clavulanate [Augmentin] 875 mg PO BIDWM 5 Days #5 tablet 04/05/18 [ Rx] Omeprazole [PriLOSEC] 40 mg PO DAILY@0630 30 Days #30 capsule. 04/05/18 [Rx] Sulfamethoxazole/Trimeth DS [Bactrim DS] 1 each PO BID 5 Days #10 tablet [Rx] Allergies/Adverse Reactions: 3 Allergy/AdvReac Type Severity Reaction Status Date / Time adhesive Allergy Severe See Verified 03/29/18 13:28 Comments Oxycodone [From Percocet] Allergy Itching Verified 03/29/18 13:28 Certification: Further, I certify that my clinical findings support that this patient is homebound (i.e. absences from home require considerable and taxing effort and are for medical reasons or protestant services or infrequently or short duration when for other reasons) because: Homebound Reason: Patient requires assistance of a person or device to safely leave home Attestation: My signature below is to certify that this patient is under my care and that I, or nurse practitioner, or a physician's information services assistant working with me, has a face-to -face encounter with this patient.
--- NOTE | 2018-04-05 09:44 | Discharge Summary ---
<Pablo Shanks - Last Filed: 04/06/18 08:07> - NOTES TO OUTPATIENT PROVIDER Notes to Outpatient Provider: Patient discharged with Augmentin, Bactrim, PPI. Blood culture still pending. Also oxycodone, ibuprofen for pain. Docusate for constipation. Orders not resulted at time of discharge: Pending orders 04/04/18 07:58 Occult Blood,Stool [BF] Stat 04/05/18 09:05 Magnesium Routine Date of Encounter: 04/06/18 Time of Encounter: 10:00 - Discharge Diagnosis (1) Sepsis Priority: Primary Status: Acute Qualifiers: Qualified Code(s): A41.9 - Sepsis, unspecified organism (2) Surgical site infection Priority: Primary Status: Acute (3) S/P mastectomy, bilateral Priority: Secondary Status: Acute (4) Vomiting Priority: Secondary Status: Acute Qualifiers: Vomiting Intractability: non-intractable Nausea presence: with nausea Qualified Code(s): G43.A0 - Cyclical vomiting, not intractable (5) HTN (hypertension) Priority: Secondary Status: Chronic Qualifiers: Hypertension type: essential hypertension Qualified Code(s): I10 - Essential (primary) hypertension (6) Morbid obesity with BMI of 40.0-44.9, adult Priority: Secondary Status: Chronic (7) Acute blood loss anemia Priority: Secondary Status: Acute Hospital course: Ms. Jennings is a 57 year old female PMHx Hypertension, obesity, BL breast cancer s/p chemotherapy and mastectomy on March 12 presents with fevers and chills after the BL mastectomy. She admits to fatigue, chills, nausea, loss of appetite since surgery. She also had pus draining from the breast. The patient had drain placed by general surgeon on April 01, 2018 and sent home on Bactrim. However, she spiked a fever 102.3 and came to ED, and was started on vancomycin and ceftriaxone, CT shows abscess in left chest wall. She is treated with vancomycin and zosyn since admission on 04/03/18. Blood culture without growth so far. Pending final results. CT Chest: s/p BL mastectomy with large enhancing fluid collection in the left lateral chest wall and anxilla suspicious for abscess. Large percutaneous drainage catheter is in place. Smaller fluid collection in the right lateral chest wall without significant peripheral enhancement that may represent a postoperative seroma. Large heterogeneous right thyroid lobe was noted as well. General surgery has been following throughout admission and reports improving left abscess. No acute intervention required. On 04/04/18, patient's hemoglobin dropped to 6.9. She received 2 units of RBCs and her hemoglobin has been stable for the last 72 hours. Drop in hemoglobin likely secondary to post surgical bleed and abscess. This is contained. Patient cleared for discharge on 04/05/18, but had multiple episodes of nausea, vomiting, and diarrhea. She did not tolerated her lunch. Phenergan and Zofran were given. GI Panel ordered and patient will remain for tonight pending further work-up. Plan to discharge with Augmentin, Phenergan, prilosec, bactrim, and pain management. Discharge discussed with: patient Time spent discussing smoking cessation with patient: 3 to 10 minutes - Time Spent with Patient Total time spent providing and/or coordinating discharge services: Greater than 30 minutes - Discharge Medications Prescriptions: Oxycodone HCl/Acetaminophen [Percocet 5-325 mg Tablet] 1 each PO Q6HR 7 Days # 28 tablet Ibuprofen 800 mg PO Q8HR #42 tablet Promethazine [Phenergan] 25 mg PO Q8HR #35 tablet Amoxicillin/Clavulanate [Augmentin] 875 mg PO BIDWM 5 Days #5 tablet Docusate [Colace] 100 mg PO BID #30 capsule Omeprazole [PriLOSEC] 40 mg PO DAILY@0630 30 Days #30 capsule. Sulfamethoxazole/Trimeth DS [Bactrim DS] 1 each PO BID 5 Days #10 tablet Home Medications: Propranolol HCl 40 mg PO BID 02/29/16 [History] ALPRAZolam [Xanax 0.5 MG Tablet] 0.5 mg PO BID 10/15/17 [History] Buspirone HCl [Buspar] 15 mg PO TID 10/15/17 [History] Cholecalciferol (D-3) [Vitamin D] 5,000 unit PO DAILY #30 tablet 10/16/17 [Rx] LORazepam [Ativan] 1 mg PO TID PRN 11/09/17 [History] Promethazine [Phenergan] 25 mg PO Q6HR PRN #30 tablet 02/23/18 [Rx] Docusate Sodium [Colace] 100 mg PO BID #30 capsule 03/15/18 [Rx] Gabapentin [Neurontin] 600 mg PO TID 03/15/18 [History] HYDROcodone/Acet 5/325 mg [Leighton 5-325 mg] 1 tab PO Q6H PRN 7 Days #28 tab 03/15 [Rx] Amoxicillin/Clavulanate [Augmentin] 875 mg PO BIDWM 5 Days #5 tablet 04/05/18 [ Rx] Docusate [Colace] 100 mg PO BID #30 capsule 04/05/18 [Rx] Ibuprofen 800 mg PO Q8HR #42 tablet 04/05/18 [Rx] Omeprazole [PriLOSEC] 40 mg PO DAILY@0630 30 Days #30 capsule.dr 04/05/18 [Rx] Oxycodone HCl/Acetaminophen [Percocet 5-325 mg Tablet] 1 each PO Q6HR 7 Days # 28 tablet 04/05/18 [Rx] Promethazine [Phenergan] 25 mg PO Q8HR #35 tablet 04/05/18 [Rx] Sulfamethoxazole/Trimeth DS [Bactrim DS] 1 each PO BID 5 Days #10 tablet [Rx] Allergies/Adverse Reactions: 3 Allergy/AdvReac Type Severity Reaction Status Date / Time adhesive Allergy Severe See Verified 03/29/18 13:28 Comments Oxycodone [From Percocet] Allergy Itching Verified 03/29/18 13:28 Date of admission: 04/03/18 18:55 Primary care physician: Jean Steen DO Discharging clinician: Pablo Shanks Anticipated date of discharge: 04/06/18 - Constitutional Vitals: Temp Pulse Resp BP Pulse Ox 97.8 F 76 15 133/82 100 04/05/18 06:52 04/05/18 06:52 04/05/18 06:52 04/05/18 06:52 04/05/18 08:05 Exam: NAD - Head Head exam: Present: atraumatic, normocephalic - Eye Eye exam: Present: conjuntiva pink, sclera anicteric - Neck Neck exam general surgery: Present: supple, trachea midline. Absent: lymphadenopathy - Respiratory Respiratory exam: Present: CTAB. Absent: accessory muscle use, rales, rhonchi, wheezes - Cardiovascular Cardiovascular exam: Present: RRR, +S1, +S2. Absent: diastolic murmur, gallop, rubs, systolic murmur - GI/Abdominal GI/Abdominal exam: Present: normal bowel sounds, soft, no peritoneal signs. Absent: distended, tenderness - Extremities Exam Extremities exam: Present: warm, radial pulses palpable and symmetrical. Absent : calf tenderness, cyanotic, pedal edema - Neurological Exam Neurological exam: Present: CN II-XII intact, oriented X3, no focal deficits. Absent: pronater drift, facial droop, speech deficit - Skin Skin exam: Present: dry, intact - Patient Status Disposition: Home, Self-Care Condition: Fair Overall status at discharge: patient is progressing back to baseline - Discharge Instructions Instructions: Acute Wound Care (DC), Abscess (GEN) Follow Up With: Charly Kay DO [Partnered Physician] - 04/13/18 9:10 am Jean Steen DO [Primary Care Provider] - 04/21/18 4:00 pm Additional Instructions: Please follow up with Dr Kay in the office next week. Daily Wound Care: Remove dressing and packing. Wash/Shower with antibacterial soap. Repack with 1/2 in plain gauze. cover with a dry dressing. Tape to secure. May reinforce or change outer dressing as needed. Daily BELTRAN drain care: Remove drain sponge.~ Shower/wash with antibacterial soap. ~ Replace drain sponge.~ Cover with a dry dressing.~ Tape to secure.~ Do not let the BELTRAN drain dangle from the body.~ Secure the bulb to clothing with a safety pin or suspend from a lanyard when showering. General Surgical Discharge Instructions 1. No pushing, pulling, or lifting greater than 15 lbs for 2-4 weeks (depending upon procedure). 2. You may shower beginning today, but no tub baths, soaking, or swimming for 2 weeks. 3. You may resume driving when you are off narcotics and are safe to react in a car. 4. Take ibuprofen every 8 hours for discomfort. If this does not relieve discomfort, you may take the as needed Percocet. Take narcotics as directed. Do not take more narcotics then directed and do not share your narcotics with any other person. Do not drink alcohol while on narcotics. 5. Take stool softeners (Colace) or a water based laxative (Miralax) while taking narcotics. You may hold for loose stools. 6. Report any fevers greater than 100.5F, increase abdominal discomfort, drainage that looks like pus, increased redness or pain at the surgical site, or any vomiting. 7. Report any pain in the calves, shortness of breath, or rapid heartbeat. 8. Follow-up in the office as directed. 9. If you were prescribed antibiotics, do not stop them without talking to your provider. - Diet and Activity Activity: increase activity as tolerated Diet: advance to your usual diet <Carlos Velazquez - Last Filed: 04/06/18 09:44> Orders not resulted at time of discharge: Pending orders 04/06/18 04:00 BMP [Basic Metabolic Panel] AM 0400 Complete Blood Count [HEME] AM 0400 Date of Encounter: 04/06/18 - Discharge Diagnosis (1) Sepsis Status: Acute Qualifiers: Qualified Code(s): A41.9 - Sepsis, unspecified organism (2) Surgical site infection Status: Acute (3) S/P mastectomy, bilateral Status: Acute (4) Morbid obesity with BMI of 40.0-44.9, adult Status: Chronic (5) HTN (hypertension) Status: Chronic Qualifiers: Hypertension type: essential hypertension Qualified Code(s): I10 - Essential (primary) hypertension (6) Hypokalemia Status: Acute (7) DVT prophylaxis Status: Acute (8) Anemia Status: Acute Qualifiers: Qualified Code(s): D64.9 - Anemia, unspecified Hospital course: Ms. Jennings is a 57 year old female - Time Spent with Patient Total time spent providing and/or coordinating discharge services: Date of admission: 04/03/18 18:55 Primary care physician: Jean Steen DO - Constitutional Vitals: Temp Pulse Resp BP Pulse Ox 98.1 F 71 15 133/81 98 04/06/18 06:42 04/06/18 06:42 04/06/18 06:42 04/06/18 06:42 04/06/18 06:42 - Attending Attestation Seen and assessed. Agree with plan per resident Plan Sepsis 2/2 to breast abscess. Continue Iv antibiotics. S/P incision and drainage by surgery Anemia with acute blood loss. Possibly surgery related. Hemoglobin stable post transfusion. Occult blood positive so will need EGD/ colonoscopy outpatient Gastroenteritis. Pt developed nausea , vomiting and diarrhea and will obtain stool work up and hold discharge
--- NOTE | 2018-04-05 10:01 | General Surgery Progress Note ---
Date of Encounter: 04/05/18 Time of Encounter: 09:57 - Assessment and Plan (1) S/P mastectomy, bilateral Current Visit: Yes Status: Acute POD 6 I&D of left breast abscess. Elective bilateral mastectomy by Dr Kay on 03-12 with pathology report back - continue supportive care and pain management - wound care - restart clears - agree with transfusion per primary team Okay to discharge per primary team - continue home health with wound care orders included in discharge planning She can follow up in office next week Thursday the at 9am Dr Kay. (2) Surgical site infection Current Visit: Yes Status: Acute see above (3) Acute blood loss anemia Current Visit: No Status: Acute HgB 9.4 from 9.5 stable after transfused one unit yesterday (4) Vomiting Current Visit: Yes Status: Acute Discussed with primary team ; they do not see need for c dif toxin and wish for her to have regular diet Qualifiers: Vomiting Intractability: non-intractable Nausea presence: with nausea Qualified Code(s): R11.2 - Nausea with vomiting, unspecified Subjective Patient reports: pain is less, tolerating liquids well, nausea, vomiting, fever Narrative: Ms Jennings vomited this am directly after eating regular diet and now has nausea. She was ablt to tolerate a liquid diet yesterday. She has had one week of loose stool with out change in color. This is the first time she has vomited for a long time. She was previously worked up for IBS and diverticulitises and told she has diverticulosis . She was on bactrim this week and currently on vanc % zosyn. She has been hospitalized recently for her bilat mastectomy. Greg abdominal pain. Objective Vital Signs - Last 8 Hours Temp Pulse Resp BP Pulse Ox 04/05/18 08:05 100 04/05/18 06:52 97.8 F 76 15 133/82 100 04/05/18 03:54 98.3 F 78 14 129/79 98 Intake and Output 04/04/18 04/05/18 04/05/18 23:59 07:59 15:59 Intake Total 804 / 804 350 / 350 0 / 0 Output Total 200 / 200 0 / 0 Balance 604 / 604 350 / 350 0 / 0 Intake: IV Fluids 454 / 454 350 / 350 Magnesium Sulfate 2 GM In 0.9 % 104 / 104 Sodium Chloride 100 ML @ 104 mls/hr IVPB ONCE ONE Rx#: [id number] Zosyn 3.375 GM In 0.9 % Sodium 100 / 100 100 / 100 Chloride (Mini-Bag +) 100 ML @ 25 mls/hr IVPB Q8HR [facility] Rx#: [id number] Vancocin 1,250 MG In 0.9 % 250 / 250 250 / 250 Sodium Chloride 250 ML @ 167 mls/hr IVPB Q12H [facility] Rx#: [id number] Oral 0 / 0 0 / 0 0 / 0 Blood Product 350 / 350 Rbcs Leuko Poor As-1 Unit 350 / 350 [id number] Output: Urine 200 / 200 0 / 0 Other: Meal Breakfast Percent of Meal Consumed 100% Weight 93 kg Patient Weight 04/05/18 23:59 Weight 93 kg - General physical appearance well developed, well nourished, no distress - Eyes normal ocular movement - ENT normal pinna, normal nares, normal mucosa - Respiratory normal expansion, normal respiratory effort, clear to auscultation - Cardiovascular Cardiovascular exam: Present: no murmurs/rubs/gallops - Abdomen Abdomen: Present: bowel sounds present, soft. Absent: distended, guarding, rebound Abdominal Tenderness: RLQ (mild) Hernia: none - Integumentary no rash, no growths, no abnormal pigmentation - Neurologic CN 2-12 grossly intact, normal coordination, normal sensation, disoriented - Musculoskeletal normal gait, normal posture - Psychiatric oriented to time, oriented to person, oriented to place, speech is normal, memory intact - Labs 04/05/18 03:21 04/05/18 03:21 Diabetes panel 04/05/18 Range/Units 03:21 Sodium 141 (136-145) mEq/L Potassium 3.8 (3.5-5.1) mEq/L Chloride 111 H (98-107) mEq/L Carbon Dioxide 24 (23-29) mEq/L BUN 10 (6-20) mg/dL Creatinine 0.71 (0.60-1.20) mg/dL Glucose 100 (70-105) mg/dL Calcium 10.2 (8.6-10.3) mg/dL Thyroid panel 04/05/18 Range/Units 03:21 TSH 1.351 (0.340-5.600) mcIU/mL Calcium panel 04/05/18 Range/Units 03:21 Calcium 10.2 (8.6-10.3) mg/dL Pituitary panel 04/05/18 04/05/18 Range/Units 03:21 03:21 Sodium 141 (136-145) mEq/L Potassium 3.8 (3.5-5.1) mEq/L Chloride 111 H (98-107) mEq/L Carbon Dioxide 24 (23-29) mEq/L BUN 10 (6-20) mg/dL Creatinine 0.71 (0.60-1.20) mg/dL Glucose 100 (70-105) mg/dL Calcium 10.2 (8.6-10.3) mg/dL TSH 1.351 (0.340-5.600) mcIU/mL Adrenal panel 04/05/18 Range/Units 03:21 Sodium 141 (136-145) mEq/L Potassium 3.8 (3.5-5.1) mEq/L Chloride 111 H (98-107) mEq/L Carbon Dioxide 24 (23-29) mEq/L BUN 10 (6-20) mg/dL Creatinine 0.71 (0.60-1.20) mg/dL Glucose 100 (70-105) mg/dL Calcium 10.2 (8.6-10.3) mg/dL Consult Discharge Plan - Plan Additional Instructions: Please follow up with Dr Kay in the office next week. Daily Wound Care: Remove dressing and packing. Wash/Shower with antibacterial soap. Repack with 1/2 in plain gauze. cover with a dry dressing. Tape to secure. May reinforce or change outer dressing as needed. Daily BELTRAN drain care: Remove drain sponge.~ Shower/wash with antibacterial soap.~ Replace drain sponge.~ Cover with a dry dressing.~ Tape to secure.~ Do not let the BELTRAN drain dangle from the body.~ Secure the bulb to clothing with a safety pin or suspend from a lanyard when showering. General Surgical Discharge Instructions 1. No pushing, pulling, or lifting greater than 15 lbs for 2-4 weeks (depending upon procedure). 2. You may shower beginning today, but no tub baths, soaking, or swimming for 2 weeks. 3. You may resume driving when you are off narcotics and are safe to react in a car. 4. Take ibuprofen every 8 hours for discomfort. If this does not relieve discomfort, you may take the as needed Percocet. Take narcotics as directed. Do not take more narcotics then directed and do not share your narcotics with any other person. Do not drink alcohol while on narcotics. 5. Take stool softeners (Colace) or a water based laxative (Miralax) while ta miriam narcotics. You may hold for loose stools. 6. Report any fevers greater than 100.5F, increase abdominal discomfort, drainage that looks like pus, increased redness or pain at the surgical site, or any vomiting. 7. Report any pain in the calves, shortness of breath, or rapid heartbeat. 8. Follow-up in the office as directed. 9. If you were prescribed antibiotics, do not stop them without talking to your provider. Referrals: Charly Kay DO [Partnered Physician] - 04/13/18 9:10 am Jean Steen DO [Primary Care Provider] - 04/21/18 4:00 pm Prescriptions: Amoxicillin/Clavulanate [Augmentin] 875 mg PO BIDWM 5 Days #5 tablet Omeprazole [PriLOSEC] 40 mg PO DAILY@0630 30 Days #30 capsule. Sulfamethoxazole/Trimeth DS [Bactrim DS] 1 each PO BID 5 Days #10 tablet
[2018-04-05] MEDS: Ondansetron 4 MG/2 ML VIAL IVP PRN (10:06)
[2018-04-05] MEDS: *HR* Promethazine 25 MG/ML VIAL IVP PRN ×2 (11:30→20:23)
--- NOTE | 2018-04-05 13:04 | Electrocardiograph Report ---
[address] [place], [place] [address] Test Date: 2018-04-03 Pat Name: Letty Jennings Department: [id number] Room: 3A12 Gender: F Business [employer] In[employer]: : [id number] Requested By: Nawaf Strickland Order Number: [id number] Reading MD: Gladys Steel Measurements Intervals [place] Rate: 81 P: 45 MN: 144 QRS: 42 QRSD: 92 T: 14 QT: 341 QTc: 396 Interpretive Statements Sinus rhythm Electronically Signed On 04-05-2018 13:03:01 EDT by Gladys Steel
[2018-04-05] MEDS ORDERED: Isovue-370 500 ML INFUS..BTL IV ONE (15:12)
--- NOTE | 2018-04-05 16:19 | Event Note ---
Date of Encounter: 04/05/18 Time of Encounter: 16:00 Patient developed nause, vomiting and foul smelling diarrhea this am Had multiple episodes. And has recent significant antibiotic exposure. Will hold discharge at this time and send a stool GI panel, obtain CT abdomen and start on cipro and flagyl Disposition pending clinical picture and stool studies
[2018-04-05] MEDS: MetroNIDAZOLE 500 MG/100 ML 500 MG/100 ML BAG IVPB SCH (16:59)
[2018-04-05 22:22] LABS: Adenovirus F 40/41 PCR Not detected (Not detect); Astrovirus PCR Not detected (Not detect); C.difficile Toxin A/B by PCR Not detected (Not detect); Campylobacter by PCR Not detected (Not detect); Cryptosporidium by PCR Not detected (Not detect); Cyclospora cayetanensis PCR Not detected (Not detect); E. coli O157 by PCR Not detected (Not detect); Entamoeba histolytica PCR Not detected (Not detect); Enteroaggregative E.coli(EAEC) Not detected (Not detect); Enteropathogenic E.coli(EPEC) Not detected (Not detect); Enterotoxigenic E.coli (ETEC) Not detected (Not detect); Giardia lamblia PCR Not detected (Not detect); Norovirus GI/GII PCR Not detected (Not detect); Plesiomonas shigelloides PCR Not detected (Not detect); Rotavirus A PCR Not detected (Not detect); Salmonella PCR Not detected (Not detect); Sapovirus PCR Not detected (Not detect); Shig/EnteroinvasiveE coli EIEC Not detected (Not detect); Shigalike tox-prod E coli STEC Not detected (Not detect); Vibrio PCR Not detected (Not detect); Vibrio cholerae PCR Not detected (Not detect); Yersinia enterocolitica PCR Not detected (Not detect)
[2018-04-06] MEDS: MetroNIDAZOLE 500 MG/100 ML 500 MG/100 ML BAG IVPB SCH ×2 (00:07→07:42)
[2018-04-06] MEDS: *HR* HYDROcodone/Acet 5/325 mg TABLET PO PRN ×2 (06:08→12:40)
[2018-04-06] MEDS: ALPRAZolam 0.5 MG TABLET PO SCH ×2 (07:41→20:12)
[2018-04-06] MEDS: Gabapentin 300 MG CAPSULE PO SCH ×3 (07:41→20:11)
[2018-04-06] MEDS: Ondansetron 4 MG/2 ML VIAL IVP PRN (07:42)
[2018-04-06] MEDS: Magnesium Oxide 400 MG TABLET PO SCH ×2 (07:42→20:12)
[2018-04-06] MEDS: Cholecalciferol (D-3) 1,000 UNIT TABLET PO SCH (07:42)
--- NOTE | 2018-04-06 07:53 | Internal Med Progress Note ---
<JenniferAnnetta M - Last Filed: 04/06/18 12:28> Hospitalist Progress Note - Encounter Date of Encounter: 04/06/18 - Exam Vitals: Temp Pulse Resp BP Pulse Ox 97.5 F L 70 15 136/83 98 04/06/18 10:17 04/06/18 10:17 04/06/18 10:17 04/06/18 10:17 04/06/18 10:17 - Assessment and Plan (1) HTN (hypertension) Current Visit: No Status: Chronic (2) Morbid obesity with BMI of 40.0-44.9, adult Current Visit: Yes Status: Chronic (3) S/P mastectomy, bilateral Current Visit: Yes Status: Acute (4) Surgical site infection Current Visit: Yes Status: Acute (5) Sepsis Current Visit: Yes Status: Acute (6) DVT prophylaxis Current Visit: Yes Status: Acute (7) Hypokalemia Current Visit: Yes Status: Acute (8) Anemia Current Visit: Yes Status: Acute - Time Spent with Patient Total time spent is greater than 50% in coordination of care (as documented) at patient's floor/unit and/or counseling patient: Internal Medicine: Result - Labs CBC & Chem 7: 04/05/18 03:21 04/05/18 03:21 - ABG Interpretation ABG results: PT/INR, D-dimer PT 15.3 Seconds (9.4-12.1) H 04/03/18 15:32 - Impressions Impressions Abdomen/Pelvis CT 04/05/18 17:30 IMPRESSION: 1. No acute findings in the abdomen or pelvis. Interval resolution of previously seen inflammation along the left ovarian vein. 2. Postsurgical changes in the left breast with 10.8 x 5.7 x 2 cm seroma and soft tissue gas. D/ / Danii Sanchez MD / Danii Sanchez MD Interpreting Provider: Danii Sanchez MD Consult Discharge Plan - Plan Instructions: Acute Wound Care (DC), Abscess (GEN) Additional Instructions: Please follow up with Dr Kay in the office next week. Daily Wound Care: Remove dressing and packing. Wash/Shower with antibacterial soap. Repack with 1/2 in plain gauze. cover with a dry dressing. Tape to secure. May reinforce or change outer dressing as needed. Daily BELTRAN drain care: Remove drain sponge.~ Shower/wash with antibacterial soap. ~ Replace drain sponge.~ Cover with a dry dressing.~ Tape to secure.~ Do not let the BELTRAN drain dangle from the body.~ Secure the bulb to clothing with a safety pin or suspend from a lanyard when showering. General Surgical Discharge Instructions 1. No pushing, pulling, or lifting greater than 15 lbs for 2-4 weeks (depending upon procedure). 2. You may shower beginning today, but no tub baths, soaking, or swimming for 2 weeks. 3. You may resume driving when you are off narcotics and are safe to react in a car. 4. Take ibuprofen every 8 hours for discomfort. If this does not relieve discomfort, you may take the as needed Percocet. Take narcotics as directed. Do not take more narcotics then directed and do not share your narcotics with any other person. Do not drink alcohol while on narcotics. 5. Take stool softeners (Colace) or a water based laxative (Miralax) while taking narcotics. You may hold for loose stools. 6. Report any fevers greater than 100.5F, increase abdominal discomfort, drainage that looks like pus, increased redness or pain at the surgical site, or any vomiting. 7. Report any pain in the calves, shortness of breath, or rapid heartbeat. 8. Follow-up in the office as directed. 9. If you were prescribed antibiotics, do not stop them without talking to your provider. Referrals: Charly Kay DO [Partnered Physician] - 04/13/18 9:10 am Jean Steen DO [Primary Care Provider] - 04/21/18 4:00 pm Prescriptions: Oxycodone HCl/Acetaminophen [Percocet 5-325 mg Tablet] 1 each PO Q6HR 7 Days # 28 tablet Ibuprofen 800 mg PO Q8HR #42 tablet Promethazine [Phenergan] 25 mg PO Q8HR #35 tablet Amoxicillin/Clavulanate [Augmentin] 875 mg PO BIDWM 5 Days #5 tablet Docusate [Colace] 100 mg PO BID #30 capsule Omeprazole [PriLOSEC] 40 mg PO DAILY@0630 30 Days #30 capsule. Sulfamethoxazole/Trimeth DS [Bactrim DS] 1 each PO BID 5 Days #10 tablet - Attending Attestation I examined this patient and my medical decision-making was reviewed with the Resident Physician Dr Shanks. I agree with the documented findings, disposition and treatment plan as described except to the extent set forth below/addl details below. Ms Jennings was admitted with breast abscess s/p bl mastectomy 02/2012 and outpatient drain placement and abx started as an outpt with failure to improve. She had I&D by surgery 04/03, received IV abx, bl cxs have been negative. She has a history of anemia, is s/p chemo, and had a significant drop in hgb s/p I& D to 6.9 on 04/04and received 2 units prbc. Hgb has remained stable inmid 9s since that time without any overt bleeding. Awake, alert, lower abd cramping pain that is improved with bms. 3 watery green bms today. Denies nausea, had small breakfast and no emesis thus far. Denies fevers, chills. No melena, hematochezia, brbpr. No sob, fatige or presyncope. gen- alert, awake,appears stated age eyes- pupils equal round, no conjunctival pallor cv- reg rate and rhythm, normal s1,s2, no murmurs appreciated, no le edema lungs- ctabl, no wheezing, rhonchi or crackles, normal resp effort abd- soft, non tender, no guarding, non distended, decreased bs skin- mastectomy incision clean, dry, no palpable abscess, no drainage or erythema neuro- AAOx3 Left Breast Abscess s/p bl mastectomy, s/p I&D 04/03, improving -surgery rec for continue home health with wound care on dc, follow up in office next week Thursday the at 9am Dr Kay. -plan has been to dc on Bactrim DS + Augmentin Acute on Chronic, normocytic, suspect 2/2 blood loss with I&D, stable -of note, with diarrhea occult stool checked and +, ptmade aware, denies melena , hematochezi, cscopes in past revealed polyps but no other findings per pt -cont to monitor hgb while here, fu with oncology regarding further w/u outpt to investigate + occult stool, CT abd pelvis 04/05 no acute findings Nausea, Emesis, Diarrhea, suspect viral gastroenteritis vs medication s/e as work up has been negative -stool studies including cdiff neg for infectious etiology -CT a/p neg for acute finding -prn antiemetic and advancing diet as tolerated -monitor lytes and hydration status Hypomagnesemia this admit s/p repletion- will check am level and replete further as needed <Pablo Shanks - Last Filed: 04/06/18 17:35> Hospitalist Progress Note - Encounter Date of Encounter: 04/06/18 Time of Encounter: 11:00 - Subjective Interval History: 57F PMHx hypertension, obesity, BL breast cancer s/p chemotherapy and mastectomy on march 12, 2018 presents with fevers and chills. Patient admits to fatigue, chills, nausea, loss of appetite since her surgery. She also admits to pus draining from the breast after the surgery. Drain was placed to drain chest wall abscess on 04/01/18 s/p I&D and she was sent home with Bactrim. However, she spiked fever of 102.3F and decided to come to the ED. She was given vanc and ceftriaxone and now on Zosyn and vanc. Patient continues to have nausea and multiple episodes of green, smelly diarrhea this AM. She also reports right lower quadrant cramps. She reports that her mother had abdominal pain on her last admission at [facility] and from it. Cause was undetermined. She is afraid that the same thing is happening to her right now. Confirms that she had her appendix, gallbladder, and uterus removed. Still not tolerating PO intake. - Exam Vitals: Temp Pulse Resp BP Pulse Ox 98.1 F 71 15 133/81 98 04/06/18 06:42 04/06/18 06:42 04/06/18 06:42 04/06/18 06:42 04/06/18 06:42 Exam: NAD - Head Head exam: Present: atraumatic, normocephalic - Eye Eye exam: Present: conjuntiva pink, sclera anicteric - Neck Neck exam general surgery: Present: supple, trachea midline. Absent: lymphadenopathy - Respiratory Respiratory exam: Present: CTAB. Absent: accessory muscle use, rales, rhonchi, wheezes - Cardiovascular Cardiovascular exam: Present: RRR, +S1, +S2. Absent: diastolic murmur, gallop, rubs, systolic murmur - GI/Abdominal GI/Abdominal exam: Present: normal bowel sounds, soft, no peritoneal signs. Absent: distended, tenderness - Extremities Exam Extremities exam: Present: warm, radial pulses palpable and symmetrical. Absent : calf tenderness, cyanotic, pedal edema - Neurological Exam Neurological exam: Present: CN II-XII intact, oriented X3, no focal deficits. Absent: pronater drift, facial droop, speech deficit - Skin Skin exam: Present: dry, intact - Assessment and Plan (1) Diarrhea Current Visit: Yes Status: Acute Assessment and Plan: Patient will multiple episodes of green, smelly diarrhea for the last 2 days. GI panel, C. dif are negative. d/c Cipro/Flagyl. She does have stool occult blood. Hemoglobin stable, now at 10.7. She also complaints of +RUQ cramps. CT abdomen obtained yesterday was unremarkable. Patient reports normal colonoscopy 3 years ago Continue CBC monitor tomorrow morning. Continue Zofran and phenergan for nausea. Plan for discharge tomorrow if H/H stable with outpatient follow-up for diarrhea. She will start her augmentin, bactrim tonight. Continue PPI. (2) Surgical site infection Current Visit: Yes Status: Acute Assessment and Plan: Patient had bilateral mastectomy on February and developed abscess requiring I&D POD#5 and percutaneous drain placement. Site is clean and dry. Will continue bactrim and augmentin on discharge (3) Vomiting Current Visit: Yes Status: Acute Assessment and Plan: No vomiting today, but continues to be nauseous. Zofran and phenergan as needed. Will reaccess tomorrow. AM electrolytes. encouraged PO intake as tolerated. (4) Sepsis Current Visit: Yes Status: Acute Assessment and Plan: Resolved. Sepsis presentation 2/2 left breast abscess. Pt has draining left breast abscess s/p bilateral mastectomy on March 12, 2018. On admission, had a fever of 102.3. RR>20 Pending blood cultures. We will restart bactrim per general surgery and augmentin PO. (5) S/P mastectomy, bilateral Current Visit: Yes Status: Acute Assessment and Plan: BL mastectomy on February (6) HTN (hypertension) Current Visit: No Status: Chronic Assessment and Plan: continue home meds. (7) Morbid obesity with BMI of 40.0-44.9, adult Current Visit: Yes Status: Chronic (8) Acute blood loss anemia Current Visit: No Status: Acute Assessment and Plan: Stable. Secondary to chronic disease vs active bleed. Hemoglobin dropped to 6.9 on presentation, back to baseline >9 after 2 units RBCs. FOBT + Will monitor CBC with AM labs. (9) Hypomagnesemia Current Visit: Yes Status: Acute Assessment and Plan: Replenished. Will recheck AM magnesium levels. (10) Hypokalemia Current Visit: Yes Status: Acute Assessment and Plan: Replenished. Recheck AM labs DVT Prophylaxis: SCDs - Time Spent with Patient Total time spent is greater than 50% in coordination of care (as documented) at patient's floor/unit and/or counseling patient: Greater than 35 minutes Internal Medicine: Result - Labs CBC & Chem 7: 04/06/18 13:30 04/06/18 13:30 - ABG Interpretation ABG results: PT/INR, D-dimer PT 15.3 Seconds (9.4-12.1) H 04/03/18 15:32 - Impressions Impressions Abdomen/Pelvis CT 04/05/18 17:30 IMPRESSION: 1. No acute findings in the abdomen or pelvis. Interval resolution of previously seen inflammation along the left ovarian vein. 2. Postsurgical changes in the left breast with 10.8 x 5.7 x 2 cm seroma and soft tissue gas. D/ / Danii Sanchez MD / Danii Sanchez MD Interpreting Provider: Danii Sanchez MD <Annetta Rodriguez - Last Filed: 04/06/18 12:28> (1) HTN (hypertension) Qualifiers: Hypertension type: essential hypertension Qualified Code(s): I10 - Essential (primary) hypertension (5) Sepsis Qualifiers: Qualified Code(s): A41.9 - Sepsis, unspecified organism (8) Anemia Qualifiers: Qualified Code(s): D64.9 - Anemia, unspecified <Pablo Shanks - Last Filed: 04/06/18 17:35> (3) Vomiting Qualifiers: Vomiting Intractability: non-intractable Nausea presence: with nausea (4) Sepsis Qualifiers: Qualified Code(s): A41.9 - Sepsis, unspecified organism (6) HTN (hypertension) Qualifiers: Hypertension type: essential hypertension Qualified Code(s): I10 - Essential (primary) hypertension
[2018-04-06] MEDS ORDERED: *HR* Alteplase (Cathflo) 2 MG VIAL IVP ONE (10:12)
[2018-04-06] MEDS: *HR* Promethazine 25 MG/ML VIAL IVP PRN ×2 (12:39→20:20)
[2018-04-06 13:44] LABS: Basophils % 0.4 %; Eosinophils # 0.2 K/mcL (0.0-0.6); Eosinophils % 2.7 %; Hematocrit 33.8 % (35.3-44.9); Hemoglobin 10.7 g/dL (11.5-15.4); Immature Granulocytes % 2.1 % (0-4); Lymphocytes # 1.2 K/mcL (0.6-4.6); Lymphocytes % 16.8 %; Mean Corpuscular HGB Conc 31.7 g/dL (31.6-35.5); Mean Corpuscular Hemoglobin 29.1 pg (28.0-33.3); Mean Corpuscular Volume 91.8 fL (83.0-100.0); Mean Platelet Volume 9.7 fL (9.4-12.4); Monocytes # 0.7 K/mcL (0.0-1.3); Neutrophils # 4.9 K/mcL (1.6-8.9); Platelet Count 458 K/mcL (140-400); Red Blood Count 3.68 M/mcL (3.82-4.97)
[2018-04-06 14:05] LABS: BUN/Creatinine Ratio 9 (6-26); Blood Urea Nitrogen 5 mg/dL (6-20); Calcium 10.1 mg/dL (8.6-10.3); Carbon Dioxide 22 mEq/L (23-29); Chloride 109 mEq/L (98-107); Glucose 95 mg/dL (70-105); Osmolality,Calculated 283 (280-300); Potassium 3.4 mEq/L (3.5-5.1); Sodium 138 mEq/L (136-145); eGFR For Non-African Americans > 60 (> 60)
[2018-04-06] MEDS ORDERED: Potassium Chloride Elixir 20 MEQ/15 ML UDC PO ONE (15:25)
[2018-04-06] MEDS: Sulfamethoxazole/Trimeth DS 1 EACH TABLET PO SCH (20:11)
[2018-04-07] MEDS: *HR* HYDROcodone/Acet 5/325 mg TABLET PO PRN ×3 (03:30→16:26)
[2018-04-07 03:52] LABS: Basophils % 0.4 %; Eosinophils # 0.2 K/mcL (0.0-0.6); Eosinophils % 2.3 %; Hematocrit 34.6 % (35.3-44.9); Hemoglobin 10.8 g/dL (11.5-15.4); Immature Granulocytes % 3.1 % (0-4); Lymphocytes # 1.7 K/mcL (0.6-4.6); Lymphocytes % 21.1 %; Mean Corpuscular HGB Conc 31.2 g/dL (31.6-35.5); Mean Corpuscular Hemoglobin 28.9 pg (28.0-33.3); Mean Corpuscular Volume 92.5 fL (83.0-100.0); Mean Platelet Volume 9.5 fL (9.4-12.4); Monocytes # 0.7 K/mcL (0.0-1.3); Monocytes % 8.6 %; Neutrophils # 5.3 K/mcL (1.6-8.9); Platelet Count 463 K/mcL (140-400); Red Blood Count 3.74 M/mcL (3.82-4.97); Red Cell Distribution Width 17.7 % (11.5-14.5); Segmented Neutrophils % 64.5 %
[2018-04-07 04:10] LABS: BUN/Creatinine Ratio 8 (6-26); Blood Urea Nitrogen 5 mg/dL (6-20); Carbon Dioxide 21 mEq/L (23-29); Chloride 109 mEq/L (98-107); Glucose 100 mg/dL (70-105); Osmolality,Calculated 287 (280-300); Potassium 3.7 mEq/L (3.5-5.1); Sodium 140 mEq/L (136-145); eGFR For Non-African Americans > 60 (> 60)
[2018-04-07] MEDS: *HR* Promethazine 25 MG/ML VIAL IVP PRN ×2 (08:20→20:00)
[2018-04-07] MEDS: ALPRAZolam 0.5 MG TABLET PO SCH ×2 (08:21→20:00)
[2018-04-07] MEDS: Gabapentin 300 MG CAPSULE PO SCH ×3 (08:21→19:59)
[2018-04-07] MEDS: Sulfamethoxazole/Trimeth DS 1 EACH TABLET PO SCH ×2 (08:21→19:59)
[2018-04-07] MEDS: Cholecalciferol (D-3) 1,000 UNIT TABLET PO SCH (08:21)
--- NOTE | 2018-04-07 09:00 | Internal Med Progress Note ---
<Annetta Rodriguez - Last Filed: 04/07/18 10:18> Hospitalist Progress Note - Encounter Date of Encounter: 04/07/18 - Exam Vitals: Temp Pulse Resp BP Pulse Ox 97.8 F 75 15 150/83 97 04/07/18 10:07 04/07/18 10:07 04/07/18 10:07 04/07/18 10:07 04/07/18 10:07 - Assessment and Plan (1) HTN (hypertension) Current Visit: No Status: Chronic (2) Morbid obesity with BMI of 40.0-44.9, adult Current Visit: Yes Status: Chronic (3) S/P mastectomy, bilateral Current Visit: Yes Status: Acute (4) Surgical site infection Current Visit: Yes Status: Acute (5) Sepsis Current Visit: Yes Status: Acute (6) DVT prophylaxis Current Visit: Yes Status: Acute (7) Hypokalemia Current Visit: Yes Status: Acute (8) Anemia Current Visit: Yes Status: Acute - Time Spent with Patient Total time spent is greater than 50% in coordination of care (as documented) at patient's floor/unit and/or counseling patient: Internal Medicine: Result - Labs CBC & Chem 7: 04/07/18 03:35 04/07/18 03:35 Labs: Short CBC 04/06/18 04/07/18 Range/Units 13:30 03:35 WBC 7.1 8.1 (4.3-11.1) K/mcL Hgb 10.7 L 10.8 L (11.5-15.4) g/dL Hct 33.8 L 34.6 L (35.3-44.9) % Plt Count 458 H 463 H (140-400) K/mcL Neutrophils # 4.9 5.3 (1.6-8.9) K/mcL BMP 04/06/18 04/07/18 13:30 03:35 Sodium 138 140 Potassium 3.4 L 3.7 Chloride 109 H 109 H Carbon Dioxide 22 L 21 L BUN 5 L 5 L Creatinine 0.56 L 0.59 L Glucose 95 100 Calcium 10.1 10.0 - ABG Interpretation ABG results: PT/INR, D-dimer PT 15.3 Seconds (9.4-12.1) H 10/13/18 15:32 Consult Discharge Plan - Plan Instructions: Acute Wound Care (DC), Abscess (GEN) Additional Instructions: Please follow up with Dr Kay in the office next week. Daily Wound Care: Remove dressing and packing. Wash/Shower with antibacterial soap. Repack with 1/2 in plain gauze. cover with a dry dressing. Tape to secure. May reinforce or change outer dressing as needed. Daily BELTRAN drain care: Remove drain sponge.~ Shower/wash with antibacterial soap. ~ Replace drain sponge.~ Cover with a dry dressing.~ Tape to secure.~ Do not let the BELTRAN drain dangle from the body.~ Secure the bulb to clothing with a safety pin or suspend from a lanyard when showering. General Surgical Discharge Instructions 1. No pushing, pulling, or lifting greater than 15 lbs for 2-4 weeks (depending upon procedure). 2. You may shower beginning today, but no tub baths, soaking, or swimming for 2 weeks. 3. You may resume driving when you are off narcotics and are safe to react in a car. 4. Take ibuprofen every 8 hours for discomfort. If this does not relieve discomfort, you may take the as needed Percocet. Take narcotics as directed. Do not take more narcotics then directed and do not share your narcotics with any other person. Do not drink alcohol while on narcotics. 5. Take stool softeners (Colace) or a water based laxative (Miralax) while taking narcotics. You may hold for loose stools. 6. Report any fevers greater than 100.5F, increase abdominal discomfort, drainage that looks like pus, increased redness or pain at the surgical site, or any vomiting. 7. Report any pain in the calves, shortness of breath, or rapid heartbeat. 8. Follow-up in the office as directed. 9. If you were prescribed antibiotics, do not stop them without talking to your provider. Referrals: Charly Kay DO [Partnered Physician] - 04/13/18 9:10 am Jean Steen DO [Primary Care Provider] - 04/21/18 4:00 pm Prescriptions: Oxycodone HCl/Acetaminophen [Percocet 5-325 mg Tablet] 1 each PO Q6HR 7 Days # 28 tablet Ibuprofen 800 mg PO Q8HR #42 tablet Promethazine [Phenergan] 25 mg PO Q8HR #35 tablet Amoxicillin/Clavulanate [Augmentin] 875 mg PO BIDWM 5 Days #5 tablet Docusate [Colace] 100 mg PO BID #30 capsule Omeprazole [PriLOSEC] 40 mg PO DAILY@0630 30 Days #30 capsule. Sulfamethoxazole/Trimeth DS [Bactrim DS] 1 each PO BID 5 Days #10 tablet - Attending Attestation I examined this patient and my medical decision-making was reviewed with the Resident Physician Dr Leon. I agree with the documented findings, disposition and treatment plan as described except to the extent set forth below /addl details below. Ms Jennings was admitted with breast abscess s/p bl mastectomy 02/2012 and outpatient drain placement and abx started as an outpt with failure to improve. She had I&D by surgery 04/03, received IV abx, bl cxs have been negative. She has a history of anemia, is s/p chemo, and had a significant drop in hgb s/p I& D to 6.9 on 04/04and received 2 units prbc. Hgb has remained stable and uptrended since that time. Discharge has been delayed by voluminous green watery diarrhea with work up thus far negative. Awake, alert, lower abd cramping pain, worse with eating. No nausea or emesis. Tolerated normal dinner and breakfast without nausea or emesis. Has lovelace 5 watery green bowel movements since bed last night. There has been no improvement in diarrhea frequency over last 3 days. Denies fevers or chills. gen- alert, awake,appears stated age eyes- pupils equal round, no conjunctival pallor cv- reg rate and rhythm, normal s1,s2, no murmurs appreciated, no le edema lungs- ctabl, no wheezing, rhonchi or crackles, normal resp effort on ra abd- soft, supra pubic tenderness, no guarding, non distended, + bs skin- mastectomy incision clean, dry, no palpable abscess, no drainage or erythema neuro- AAOx3 Left Breast Abscess s/p bl mastectomy, s/p I&D 04/03, improving -surgery rec for continue home health with wound care on dc, follow up in office next week Thursday the at 9am Dr Kay. -plan has been to dc on Bactrim DS + Augmentin to complete course Acute on Chronic, normocytic, suspect 2/2 blood loss with I&D, stable, uptrending -of note, with diarrhea occult stool checked and +, pt made aware, denies melena , hematochezia, cscopes in past revealed polyps but no other findings per pt -cont to monitor hgb while here, fu with oncology regarding further w/u outpt to investigate + occult stool, CT abd pelvis 04/05 no acute findings Nausea, Emesis, Diarrhea, suspect viral gastroenteritis vs medication s/e as work up has been negative [place] and Emesis resolved, diarrhea persists -stool studies including cdiff neg for infectious etiology -CT a/p neg for acute finding -prn antiemetic and advancing diet as tolerated -monitor lytes and hydration status -stop PO mad -given immunocompromised pt with persistent, large volume, green diarrhea, will consult gi for further recs Hypomagnesemia, 1.0 - replete IV and cont to monitor, hold oral mag given diarrhea <Charles Leon - Last Filed: 04/07/18 13:36> Hospitalist Progress Note - Encounter Date of Encounter: 04/07/18 Time of Encounter: 09:45 - Subjective Interval History: Patient was seen and examined at bedside this morning. She reports having multiple episodes of diarrhea since last night. She also reports abdominal pain in the RLQ and the LLQ. She denies any vomiting, fever, chills, chest pain , urinary frequency or urgency, changes in appetite. She was able to eat her full breakfast this morning without difficulty. No further complaints at this time. - Exam Vitals: Temp Pulse Resp BP Pulse Ox 97.9 F 78 16 146/81 98 04/07/18 05:25 04/07/18 05:25 04/07/18 05:25 04/07/18 05:25 04/07/18 05:25 Exam: NAD - Head Head exam: Present: atraumatic, normocephalic - Eye Eye exam: Present: conjuntiva pink, sclera anicteric - Neck Neck exam general surgery: Present: supple, trachea midline. Absent: lymphadenopathy - Respiratory Respiratory exam: Present: CTAB. Absent: accessory muscle use, rales, rhonchi, wheezes - Cardiovascular Cardiovascular exam: Present: RRR, +S1, +S2. Absent: diastolic murmur, gallop, rubs, systolic murmur - GI/Abdominal GI/Abdominal exam: Present: normal bowel sounds, soft, no peritoneal signs. Absent: distended, tenderness - Extremities Exam Extremities exam: Present: warm, radial pulses palpable and symmetrical. Absent : calf tenderness, cyanotic, pedal edema - Neurological Exam Neurological exam: Present: CN II-XII intact, oriented X3, no focal deficits. Absent: pronater drift, facial droop, speech deficit - Skin Skin exam: Present: dry, intact - Assessment and Plan (1) Diarrhea Current Visit: Yes Status: Acute Assessment and Plan: Patient will multiple episodes of green, smelly diarrhea for the last 2 days. - GI panel, C. dif are negative. d/c Cipro/Flagyl. - She does have stool occult blood. Hemoglobin stable, now at 10.7. - She also complaints of +RUQ cramps. - CT abdomen obtained yesterday was unremarkable. - Patient reports normal colonoscopy 3 years ago - Continue CBC monitor tomorrow morning - Continue Zofran and phenergan for nausea - Continue PPI - GI consulted for persistent diarrhea (2) Surgical site infection Current Visit: Yes Status: Acute Assessment and Plan: Patient had bilateral mastectomy on February and developed abscess requiring I&D POD#5 and percutaneous drain placement - Site is clean and dry - Will continue bactrim and augmentin on discharge (3) Vomiting Current Visit: Yes Status: Acute Assessment and Plan: - Zofran and phenergan as needed - AM electrolytes - encouraged PO intake as tolerated (4) S/P mastectomy, bilateral Current Visit: Yes Status: Acute Assessment and Plan: BL mastectomy on February (5) HTN (hypertension) Current Visit: No Status: Chronic Assessment and Plan: continue home meds (6) Morbid obesity with BMI of 40.0-44.9, adult Current Visit: Yes Status: Chronic (7) Acute blood loss anemia Current Visit: No Status: Acute Assessment and Plan: Stable. Secondary to chronic disease vs active bleed. Hemoglobin dropped to 6.9 on presentation, back to baseline >9 after 2 units RBCs. FOBT + Will monitor CBC with AM labs. (8) Hypomagnesemia Current Visit: Yes Status: Acute Assessment and Plan: [place] level of 1.0 - IV replacement - Repeat mag levels with AM labs DVT Prophylaxis: SCDs - Time Spent with Patient Total time spent is greater than 50% in coordination of care (as documented) at patient's floor/unit and/or counseling patient: less than 15 minutes Internal Medicine: Result - Labs CBC & Chem 7: 04/07/18 03:35 04/07/18 03:35 Labs: Short CBC 04/06/18 04/07/18 Range/Units 13:30 03:35 WBC 7.1 8.1 (4.3-11.1) K/mcL Hgb 10.7 L 10.8 L (11.5-15.4) g/dL Hct 33.8 L 34.6 L (35.3-44.9) % Plt Count 458 H 463 H (140-400) K/mcL Neutrophils # 4.9 5.3 (1.6-8.9) K/mcL BMP 04/06/18 04/07/18 13:30 03:35 Sodium 138 140 Potassium 3.4 L 3.7 Chloride 109 H 109 H Carbon Dioxide 22 L 21 L BUN 5 L 5 L Creatinine 0.56 L 0.59 L Glucose 95 100 Calcium 10.1 10.0 - ABG Interpretation ABG results: PT/INR, D-dimer PT 15.3 Seconds (9.4-12.1) H 04/03/18 15:32 <Annetta Rodriguez - Last Filed: 04/07/18 10:18> (1) HTN (hypertension) Qualifiers: Hypertension type: essential hypertension Qualified Code(s): I10 - Essential (primary) hypertension (5) Sepsis Qualifiers: Qualified Code(s): A41.9 - Sepsis, unspecified organism (8) Anemia Qualifiers: Qualified Code(s): D64.9 - Anemia, unspecified <Charles Leon - Last Filed: 04/07/18 13:36> (3) Vomiting Qualifiers: Vomiting Intractability: non-intractable Nausea presence: with nausea (5) HTN (hypertension) Qualifiers: Hypertension type: essential hypertension Qualified Code(s): I10 - Essential (primary) hypertension
[2018-04-07] MEDS ORDERED: Acetaminophen 325 MG TABLET PO PRN (15:06)
[2018-04-07] MEDS ORDERED: *HR* HYDROcodone/Acet 5/325 mg TABLET PO PRN (15:07)
[2018-04-08] MEDS: *HR* HYDROcodone/Acet 5/325 mg TABLET PO PRN ×3 (00:01→19:13)
--- NOTE | 2018-04-08 12:02 | Internal Med Progress Note ---
Addendum entered and electronically signed by Annetta Rodriguez DO 04/08/18 15:03: of note, pt described varying symptoms to resident, myself and GI team today v arying from no diarrhea and cont abd pain without nausea, emesis and tolerating diet--to blood streaked diarrhea-- to tolerating only clear liquids diet. Difficult to discern her actual symptoms. stool has not been visualized. GI plans for egd and cscope in am Original Note: <Pablo Shanks - Last Filed: 04/08/18 14:34> Hospitalist Progress Note - Encounter Date of Encounter: 04/08/18 Time of Encounter: 09:00 - Subjective Interval History: 57F PMHx hypertension, obesity, BL breast cancer s/p chemotherapy and mastectomy on march 12, 2018 presents with fevers and chills. Patient admits to fatigue, chills, nausea, loss of appetite since her surgery. She also admits to pus draining from the breast after the surgery. Drain was placed to drain chest wall abscess on 04/01/18 s/p I&D and she was sent home with Bactrim. However, she spiked fever of 102.3F and decided to come to the ED. She was given vanc and ceftriaxone and now on Augmentin and bactrim. Patient reports that nausea, diarrhea has improved. She does admit to one episode of diarrhea this morning but it is no longer green. Her abdominal pain has also improved. She reports that her mother had abdominal pain on her last admission at [facility] and from it. She is afraid that the same thing is happening to her right now. Confirms that she had her appendix, gallbladder, and uterus removed. Still not tolerating PO intake. She is tolerating PO intake (liquids). Also admits to worsening dysuria, without hematuria. Denies hematochezia or any signs of active bleed. - Exam Vitals: Temp Pulse Resp BP Pulse Ox 97.8 F 72 14 132/81 97 04/08/18 11:00 04/08/18 11:00 04/08/18 11:00 04/08/18 11:00 04/08/18 11:00 Exam: NAD - Head Head exam: Present: atraumatic, normocephalic - Eye Eye exam: Present: conjuntiva pink, sclera anicteric - Neck Neck exam general surgery: Present: supple, trachea midline. Absent: lymphadenopathy - Respiratory Respiratory exam: Present: CTAB. Absent: accessory muscle use, rales, rhonchi, wheezes - Cardiovascular Cardiovascular exam: Present: RRR, +S1, +S2. Absent: diastolic murmur, gallop, rubs, systolic murmur - GI/Abdominal GI/Abdominal exam: Present: normal bowel sounds, soft, no peritoneal signs. Absent: distended, tenderness - Extremities Exam Extremities exam: Present: warm, radial pulses palpable and symmetrical. Absent: calf tenderness, cyanotic, pedal edema - Neurological Exam Neurological exam: Present: CN II-XII intact, oriented X3, no focal deficits. Absent: pronater drift, facial droop, speech deficit - Skin Skin exam: Present: dry, intact - Assessment and Plan (1) Diarrhea Current Visit: Yes Status: Acute Assessment and Plan: Patient with multiple episodes of green, smelly diarrhea for the last 2 days. Improved today - GI panel, C. dif are negative. - She does have stool occult blood. Hemoglobin stable, pending labs today - Last colonoscopy 3 years ago and unremarkable. - She also complaints of +RUQ cramps. - CT abdomen obtained yesterday was unremarkable. - Patient reports normal colonoscopy 3 years ago - Continue CBC monitor tomorrow morning - Continue Zofran and phenergan for nausea - Continue PPI - GI recommends EGD/Colonoscopy tomorrow morning. NPO after midnight (2) Surgical site infection Current Visit: Yes Status: Acute Assessment and Plan: Patient had bilateral mastectomy on February and developed abscess requiring I&D POD#5 and percutaneous drain placement - Site is clean and dry - Will continue bactrim and augmentin on discharge (3) Nausea and Vomiting Current Visit: Yes Status: Acute Assessment and Plan: - Zofran and phenergan as needed - AM electrolytes - encouraged PO intake as tolerated - EGD tomorrow. NPO after midnight (4) S/P mastectomy, bilateral Current Visit: Yes Status: Acute Assessment and Plan: BL mastectomy on February (5) HTN (hypertension) Current Visit: No Status: Chronic Assessment and Plan: continue home meds (6) Morbid obesity with BMI of 40.0-44.9, adult Current Visit: Yes Status: Chronic (7) Acute blood loss anemia Current Visit: No Status: Acute Assessment and Plan: Stable. Secondary to chronic disease vs active bleed. Hemoglobin dropped to 6.9 on presentation, back to baseline >9 after 2 units RBCs. FOBT + Will monitor CBC with AM labs. (8) Hypomagnesemia Current Visit: No Status: Acute Assessment and Plan: Patient's diarrhea started when she magnesium was supplemented. This could be cause of her diarrhea. No morning labs yet. Called lab to send someone to collect blood. Will continue to follow and replenish as needed. For her diarrhea, please manage as above. DVT Prophylaxis: SCDs - Time Spent with Patient Total time spent is greater than 50% in coordination of care (as documented) at patient's floor/unit and/or counseling patient: Greater than 35 minutes Plan of Care Discussed with: patient Internal Medicine: Result - Labs CBC & Chem 7: 04/07/18 03:35 04/07/18 03:35 - ABG Interpretation ABG results: PT/INR, D-dimer PT 15.3 Seconds (9.4-12.1) H 04/03/18 15:32 Consult Discharge Plan - Plan Instructions: Acute Wound Care (DC), Abscess (GEN) Additional Instructions: Please follow up with Dr Kay in the office next week. Daily Wound Care: Remove dressing and packing. Wash/Shower with antibacterial soap. Repack with 1/2 in plain gauze. cover with a dry dressing. Tape to secure. May reinforce or change outer dressing as needed. Daily BELTRAN drain care: Remove drain sponge.~ Shower/wash with antibacterial soap.~ Replace drain sponge.~ Cover with a dry dressing.~ Tape to secure.~ Do not let the BELTRAN drain dangle from the body.~ Secure the bulb to clothing with a safety pin or suspend from a lanyard when showering. General Surgical Discharge Instructions 1. No pushing, pulling, or lifting greater than 15 lbs for 2-4 weeks (depending upon procedure). 2. You may shower beginning today, but no tub baths, soaking, or swimming for 2 weeks. 3. You may resume driving when you are off narcotics and are safe to react in a car. 4. Take ibuprofen every 8 hours for discomfort. If this does not relieve discomfort, you may take the as needed Percocet. Take narcotics as directed. Do not take more narcotics then directed and do not share your narcotics with any other person. Do not drink alcohol while on narcotics. 5. Take stool softeners (Colace) or a water based laxative (Miralax) while taking narcotics. You may hold for loose stools. 6. Report any fevers greater than 100.5F, increase abdominal discomfort, drainage that looks like pus, increased redness or pain at the surgical site, or any vomiting. 7. Report any pain in the calves, shortness of breath, or rapid heartbeat. 8. Follow-up in the office as directed. 9. If you were prescribed antibiotics, do not stop them without talking to your provider. Referrals: Charly Kay DO [Partnered Physician] - 04/13/18 9:10 am Jean Steen DO [Primary Care Provider] - 04/21/18 4:00 pm Prescriptions: Oxycodone HCl/Acetaminophen [Percocet 5-325 mg Tablet] 1 each PO Q6HR 7 Days #28 tablet Ibuprofen 800 mg PO Q8HR #42 tablet Promethazine [Phenergan] 25 mg PO Q8HR #35 tablet Amoxicillin/Clavulanate [Augmentin] 875 mg PO BIDWM 5 Days #5 tablet Docusate [Colace] 100 mg PO BID #30 capsule Omeprazole [PriLOSEC] 40 mg PO DAILY@0630 30 Days #30 capsule. Sulfamethoxazole/Trimeth DS [Bactrim DS] 1 each PO BID 5 Days #10 tablet <Annetta Rodriguez - Last Filed: 04/08/18 15:01> Hospitalist Progress Note - Exam Vitals: Temp Pulse Resp BP Pulse Ox 97.8 F 72 14 132/81 97 04/08/18 11:00 04/08/18 11:00 04/08/18 11:00 04/08/18 11:00 04/08/18 11:00 - Assessment and Plan (1) HTN (hypertension) Current Visit: No Status: Chronic (2) Morbid obesity with BMI of 40.0-44.9, adult Current Visit: Yes Status: Chronic (3) S/P mastectomy, bilateral Current Visit: Yes Status: Acute (4) Surgical site infection Current Visit: Yes Status: Acute (5) Sepsis Current Visit: Yes Status: Acute (6) DVT prophylaxis Current Visit: Yes Status: Acute (7) Hypokalemia Current Visit: Yes Status: Acute (8) Anemia Current Visit: Yes Status: Acute - Time Spent with Patient Total time spent is greater than 50% in coordination of care (as documented) at patient's floor/unit and/or counseling patient: Internal Medicine: Result - Labs CBC & Chem 7: 04/07/18 03:35 04/07/18 03:35 - ABG Interpretation ABG results: PT/INR, D-dimer PT 15.3 Seconds (9.4-12.1) H 04/03/18 15:32 - Attending Attestation I examined this patient and my medical decision-making was reviewed with the Resident Physician Dr Shanks. I agree with the documented findings, disposition and treatment plan as described except to the extent set forth below/addl details below. Ms Jennings was admitted with breast abscess s/p bl mastectomy 02/2012 and outpatient drain placement and abx started as an outpt with failure to improve. She had I&D by surgery 04/03, received IV abx, bl cxs have been negative. She has a history of anemia, is s/p chemo, and had a significant drop in hgb s/p I&D to 6.9 on 04/04and received 2 units prbc. Hgb has remained stable and uptrended since that time. Discharge has been delayed by voluminous green watery diarrhea with work up thus far negative. Overall now diarrhea improved, cont abdominal cramping. Awake, alert, lower abd cramping pain unchanged, No nausea or emesis, no diarrhea overnight. Denies fevers, chills. Tolerated normal diet. gen- alert, awake,appears stated age eyes- pupils equal round, no conjunctival pallor cv- reg rate and rhythm, normal s1,s2, no murmurs appreciated lungs- ctabl, no wheezing, rhonchi or crackles, normal resp effort on ra abd- soft, snon tender,, no guarding, non distended, + bs neuro- AAOx3 Left Breast Abscess s/p bl mastectomy, s/p I&D 04/03, improving -surgery rec for continue home health with wound care on dc, follow up in office next week Thursday the at 9am Dr Kay. -plan has been to dc on Bactrim DS + Augmentin to complete course Acute on Chronic, normocytic, suspect 2/2 blood loss with I&D, stable, uptrending todays labs remain pending given meditech down time -of note, with diarrhea occult stool checked and +, pt made aware, denies melena, hematochezia, cscopes in past revealed polyps but no other findings per pt -cont to monitor hgb while here, fu with oncology regarding further w/u outpt to investigate + occult stool, CT abd pelvis 04/05 no acute findings Nausea, Emesis, Diarrhea, suspect viral gastroenteritis vs medication s/e as work up has been negative Nauea and Emesis resolved, diarrhea improving -stool studies including cdiff neg for infectious etiology -CT a/p neg for acute finding -prn antiemetic and advancing diet as tolerated -monitor lytes and hydration status -stop PO mag -given immunocompromised pt with persistent, large volume, green diarrhea, will consult gi for further recs, eval pending Hypomagnesemia, 1.0 - repleted IV 04/07 todays labs remain pending given me ditech down time hold oral mag given diarrhea, replete prn today <Pablo Shanks - Last Filed: 04/08/18 14:34> (1) Diarrhea Qualifiers: Diarrhea type: unspecified type Qualified Code(s): R19.7 - Diarrhea, unspecified <Annetta Rodriguez - Last Filed: 04/08/18 15:01> (1) HTN (hypertension) Qualifiers: Hypertension type: essential hypertension Qualified Code(s): I10 - Essential (primary) hypertension (5) Sepsis Qualifiers: Qualified Code(s): A41.9 - Sepsis, unspecified organism (8) Anemia Qualifiers: Anemia type: unspecified type Qualified Code(s): D64.9 - Anemia, unspecified
[2018-04-08] MEDS: Sulfamethoxazole/Trimeth DS 1 EACH TABLET PO SCH ×2 (12:08→21:01)
[2018-04-08] MEDS: Cholecalciferol (D-3) 1,000 UNIT TABLET PO SCH (12:09)
[2018-04-08] MEDS: ALPRAZolam 0.5 MG TABLET PO SCH ×2 (12:09→21:00)
[2018-04-08] MEDS: Gabapentin 300 MG CAPSULE PO SCH ×3 (12:09→21:00)
--- NOTE | 2018-04-08 12:50 | Gastroenterology Consult Note ---
<Myriam Zeng - Last Filed: 04/08/18 13:03> Date of Encounter: 04/08/18 Time of Encounter: 12:00 - Assessment and plan (1) Anemia Current Visit: Yes Status: Acute Assessment and plan: Likely multifactoral and related to recent chemotherapy treatment, but she is complaining of nausea and blood streaked diarrhea. Will proceed with EGD and colonoscopy tomorrow to rule out gastritis, pud, MW tear, or avm. Continue PPI. Qualifiers: Anemia type: unspecified type Qualified Code(s): D64.9 - Anemia, unspecified (2) Diarrhea Current Visit: Yes Status: Acute Assessment and plan: GI panel negative, will order fecal calpro and pancreatic elastase, random biopsies on colonoscopy to rule out microcytic/lymphocitic colitis Qualifiers: Diarrhea type: unspecified type Qualified Code(s): R19.7 - Diarrhea, un specified - Time Spent With Patient Total time spent is greater than 50% in coordination of care (as documented) at patient's floor/unit and/or counseling patient: GI History of Present Illness - Data of Consult Patient: new to practice Consult date: 04/08/18 Requesting Physician: Annetta Rodriguez - Consult Narrative Reason for consult: diarrhea/rectal bleeding History of present illness: Ms. Jennings is a 57 year old female with a PMHx hypertension, obesity, BL breast cancer s/p chemotherapy (02/15/18) and mastectomy on march 12, 2018. She presented with surgical site infection/ breast abcess, she is status post I&d. Discharge has been delayed due to some nausea and watery diarrhea. She reports she had diarrhea approximately 4 days before admission. At least 6 bms a day, green, watery with blood streaks. She has crampy abdominal pain. She states nausea is now improved. Confirms that she had her appendix, gallbladder, and uterus removed. Still not tolerating PO intake. Hgb was 10 at baseline, dropped to 6.9, she was transfused 2 units prbcs and is now 10.8. EGD: 03/07 reflux esophagitis and gastritis colonoscopy: 09/01 normal anticoagulants: denies Past Med Surg Social Fam HX - Past Medical History Medical history: GERD, hyperlipidemia, hypertension, thyroid disease, other Additional medical history: sleep apnea. Fuentes's Palsy. Nasal Septal Deviation. Obesity Psychiatric history: anxiety, depression - Past Surgical History Surgical History: appendectomy, breast surgery, colectomy, hysterectomy, knee replacement, sinus surgery, other Additional surgical history: port,egd,colonoscopy, t&a, double mastectomy - Social History Smoking Status: Current every day smoker Smokeless Tobacco Status: No Alcohol use: none Drug use: none - Family History Mother Hx Family Cardiac Disorders: Yes (HTN, HLD, stents) Review of Systems: GI: as per [facility]: denies fever, has some chills EYES: denies yellow discoloration ENT: denies pain with swallowing or difficulty swallowing CARDIO: denies chest pain, palpitations RESP: No Shortness of breath with exertion : denies change in color of urine NEURO: weakness HEME: Denies any bruising MS: denies joint pain, joint swelling or back pain. DERM: denies rash or itching PSYCH: Denies history of anxiety or depression - Constitutional Vitals: Temp Pulse Resp BP Pulse Ox 97.8 F 72 14 132/81 97 04/08/18 11:00 04/08/18 11:00 04/08/18 11:00 04/08/18 11:00 04/08/18 11:00 Exam: CONSTITUTIONAL: alert, no acute distress. HEAD: normocephalic, alopecia noted EYES: no jaundice. NECK: no obvious swelling. HEART: regular rate and rhythm, no murmurs. LUNGS: bilateral good air entry. dressings to chest dry and intact ABDOMEN: non distended, soft, non tender, no masses palpable, no organomegaly, scars well healed. RECTAL EXAM: Deferred. EXTREMITIES: no clubbing, cyanosis or edema. SKIN: no stigmata of chronic liver disease. NEUROLOGIC: no obvious focal defect. Results - Labs CBC & Chem 7: 04/07/18 03:35 04/07/18 03:35 Labs: Last Result Calcium 10.0 mg/dL (8.6-10.3) 04/07/18 03:35 Iron 27 mcg/dL (50-170) L 04/05/18 03:21 % Saturation 13 % (15-50) L 04/05/18 03:21 Transferrin 151 mg/dL (203-362) L 04/05/18 03:21 Troponin I 0.03 ng/mL (< 0.04) 04/03/18 15:32 Stool Occult Blood Positive (Negative) A 04/05/18 11:30 Entire Visit Hgb 10.8 g/dL (11.5-15.4) L 04/07/18 03:35 Hct 34.6 % (35.3-44.9) L 04/07/18 03:35 PT 15.3 Seconds (9.4-12.1) H 04/03/18 15:32 Total Bilirubin 0.5 mg/dL (0.3-1.0) 04/03/18 15:32 AST 23 Units/L (13-39) 04/03/18 15:32 ALT 27 Units/L (7-52) 04/03/18 15:32 - ABG ABG results: PT/INR, D-dimer PT 15.3 Seconds (9.4-12.1) H 04/03/18 15:32 Consult Discharge Plan - Plan Instructions: Acute Wound Care (DC), Abscess (GEN) Additional Instructions: Please follow up with Dr Kay in the office next week. Daily Wound Care: Remove dressing and packing. Wash/Shower with antibacterial soap. Repack with 1/2 in plain gauze. cover with a dry dressing. Tape to secure. May reinforce or change outer dressing as needed. Daily BELTRAN drain care: Remove drain sponge.~ Shower/wash with antibacterial soap.~ Replace drain sponge.~ Cover with a dry dressing.~ Tape to secure.~ Do not let the BELTRAN drain dangle from the body.~ Secure the bulb to clothing with a safety pin or suspend from a lanyard when showering. General Surgical Discharge Instructions 1. No pushing, pulling, or lifting greater than 15 lbs for 2-4 weeks (depending upon procedure). 2. You may shower beginning today, but no tub baths, soaking, or swimming for 2 weeks. 3. You may resume driving when you are off narcotics and are safe to react in a car. 4. Take ibuprofen every 8 hours for discomfort. If this does not relieve discomfort, you may take the as needed Percocet. Take narcotics as directed. Do not take more narcotics then directed and do not share your narcotics with any other person. Do not drink alcohol while on narcotics. 5. Take stool softeners (Colace) or a water based laxative (Miralax) while taking narcotics. You may hold for loose stools. 6. Report any fevers greater than 100.5F, increase abdominal discomfort, drainage that looks like pus, increased redness or pain at the surgical site, or any vomiting. 7. Report any pain in the calves, shortness of breath, or rapid heartbeat. 8. Follow-up in the office as directed. 9. If you were prescribed antibiotics, do not stop them without talking to your provider. Referrals: Charly Kay DO [Partnered Physician] - 04/13/18 9:10 am Jean Steen DO [Primary Care Provider] - 04/21/18 4:00 pm Prescriptions: Oxycodone HCl/Acetaminophen [Percocet 5-325 mg Tablet] 1 each PO Q6HR 7 Days #28 tablet Ibuprofen 800 mg PO Q8HR #42 tablet Promethazine [Phenergan] 25 mg PO Q8HR #35 tablet Amoxicillin/Clavulanate [Augmentin] 875 mg PO BIDWM 5 Days #5 tablet Docusate [Colace] 100 mg PO BID #30 capsule Omeprazole [PriLOSEC] 40 mg PO DAILY@0630 30 Days #30 capsule. Sulfamethoxazole/Trimeth DS [Bactrim DS] 1 each PO BID 5 Days #10 tablet <Aria Huerta - Last Filed: 04/08/18 17:44> Time of Encounter: 14:30 - Time Spent With Patient Total time spent is greater than 50% in coordination of care (as documented) at patient's floor/unit and/or counseling patient: GI History of Present Illness - Data of Consult Requesting Physician: Annetta Rodriguez - Consult Narrative History of present illness: Ms. Jennings is a 57 year old female - Constitutional Vitals: Temp Pulse Resp BP Pulse Ox 98.3 F 78 16 153/79 98 04/08/18 15:46 04/08/18 15:46 04/08/18 15:46 04/08/18 15:46 04/08/18 15:46 Results - Labs CBC & Chem 7: 04/08/18 13:18 04/08/18 13:18 Labs: Last Result Calcium 10.2 mg/dL (8.6-10.3) 04/08/18 13:18 Iron 27 mcg/dL (50-170) L 04/05/18 03:21 % Saturation 13 % (15-50) L 04/05/18 03:21 Transferrin 151 mg/dL (203-362) L 04/05/18 03:21 Troponin I 0.03 ng/mL (< 0.04) 04/03/18 15:32 Stool Occult Blood Positive (Negative) A 04/05/18 11:30 Entire Visit Hgb 11.1 g/dL (11.5-15.4) L 04/08/18 13:18 Hct 35.9 % (35.3-44.9) 04/08/18 13:18 PT 15.3 Seconds (9.4-12.1) H 04/03/18 15:32 Total Bilirubin 0.5 mg/dL (0.3-1.0) 04/03/18 15:32 AST 23 Units/L (13-39) 04/03/18 15:32 ALT 27 Units/L (7-52) 04/03/18 15:32 - ABG ABG results: PT/INR, D-dimer PT 15.3 Seconds (9.4-12.1) H 04/03/18 15:32 - Attending Attestation I have personally performed a face to face evaluation on this patient. I have reviewed and agree with the care plan. History and Exam by me shows: Patient seen complaining of feeling weak and the diarrhea with some streaks of blood. Examination abdomen is benign. Assessment: Patient 57-year-old female status post chemotherapy for breast cancer but last treatment was in January now with the diarrhea and anemia. Stool Panel is negative for infectious etiology. Rec: EGDColonoscopy to rule out GI causes for her anemia
[2018-04-08] MEDS ORDERED: Polyethylene Glycol 3350 255 GM POWDER PO ONE (13:05)
[2018-04-08 15:19] LABS: Bilirubin,Urine Negative (Negative); Blood,Urine Negative (Negative); Clarity,Urine Cloudy (Clear); Color,Urine Yellow (Yellow); Glucose,Urine (UA) Normal (Normal); Ketones,Urine Negative (Negative); Leukocyte Esterase,Urine Small (Negative); Nitrite,Urine Negative (Negative); PH,Urine 5.5 pH Units (5.0-8.0); Protein,Urine Negative (Neg-Trace); Specific Gravity,Urine > 1.030 (1.010-1.025); Urobilinogen,Urine Normal (Normal)
[2018-04-08 15:23] LABS: Bacteria,Urine None Seen per hpf (None-Few); Hyaline Casts,Urine Moderate per lpf (None-Few); Squamous Epithelial Cell,Urine Many per lpf (None-Few)
[2018-04-08] MEDS ORDERED: Sulfamethoxazole/Trimeth DS 1 EACH TABLET PO ONE (15:48)
[2018-04-08] MEDS ORDERED: Gabapentin 300 MG CAPSULE PO ONE (15:48)
[2018-04-08] MEDS ORDERED: Cholecalciferol (D-3) 1,000 UNIT TABLET PO ONE (15:48)
[2018-04-08] MEDS ORDERED: ALPRAZolam 0.5 MG TABLET PO ONE (15:48)
[2018-04-08] MEDS ORDERED: *HR* HYDROcodone/Acet 5/325 mg TABLET PO ONE (15:48)
[2018-04-08] MEDS ORDERED: *HR* Alteplase (Cathflo) 2 MG VIAL IVP ONE (16:21)
[2018-04-08 16:44] LABS: Calcium Oxalate Crystals,Urine Present; Uric Acid Crystals,Urine Present
[2018-04-08 16:57] LABS: Basophils # 0.1 K/mcL (0.0-0.2); Basophils % 0.5 %; Eosinophils # 0.2 K/mcL (0.0-0.6); Eosinophils % 2.2 %; Hematocrit 35.9 % (35.3-44.9); Hemoglobin 11.1 g/dL (11.5-15.4); Immature Granulocytes % 4.1 % (0-4); Lymphocytes # 2.7 K/mcL (0.6-4.6); Lymphocytes % 27.9 %; Mean Corpuscular HGB Conc 30.9 g/dL (31.6-35.5); Mean Corpuscular Hemoglobin 28.8 pg (28.0-33.3); Mean Corpuscular Volume 93.2 fL (83.0-100.0); Mean Platelet Volume 9.5 fL (9.4-12.4); Monocytes # 0.8 K/mcL (0.0-1.3); Monocytes % 8.7 %; Neutrophils # 5.4 K/mcL (1.6-8.9); Platelet Count 517 K/mcL (140-400); Red Blood Count 3.85 M/mcL (3.82-4.97); Red Cell Distribution Width 17.9 % (11.5-14.5); Segmented Neutrophils % 56.6 %
[2018-04-08 17:15] LABS: BUN/Creatinine Ratio 11 (6-26); Blood Urea Nitrogen 8 mg/dL (6-20); Calcium 10.2 mg/dL (8.6-10.3); Carbon Dioxide 25 mEq/L (23-29); Chloride 105 mEq/L (98-107); Glucose 85 mg/dL (70-105); Magnesium 1.3 mg/dL (1.6-2.6); Osmolality,Calculated 282 (280-300); Potassium 4.3 mEq/L (3.5-5.1); Sodium 137 mEq/L (136-145); eGFR For Non-African Americans > 60 (> 60)
--- NOTE | 2018-04-08 19:40 | Anesthesia Evaluation PreOp ---
Date of Encounter: 04/09/18 Time of Encounter: 06:24 - Past History Planned Operation: EGD/Colonoscopy Cardiac History: HTN, Hyperlipidemia Pulmonary History: Smoker (40 years), MADAY Dx (dos not use CPAP) TEAM SUPERVISOR History: Denies Any Significant HX Other Medical History: GERD, Other (H/O breast CA S/P bilateral mastectomy and chemo, anxiety/depression) Anesthesia History: No Prior Anesthetic Complications, Past Anesthesia Alcohol Use: none Drug use: none Medications and Allergies Propranolol HCl 40 mg PO BID 02/29/16 [History] ALPRAZolam [Xanax 0.5 MG Tablet] 0.5 mg PO BID 10/15/17 [History] Buspirone HCl [Buspar] 15 mg PO TID 10/15/17 [History] Cholecalciferol (D-3) [Vitamin D] 5,000 unit PO DAILY #30 tablet 10/16/17 [Rx] LORazepam [Ativan] 1 mg PO TID PRN 11/09/17 [History] Promethazine [Phenergan] 25 mg PO Q6HR PRN #30 tablet 02/23/18 [Rx] Docusate Sodium [Colace] 100 mg PO BID #30 capsule 03/15/18 [Rx] Gabapentin [Neurontin] 600 mg PO TID 03/15/18 [History] HYDROcodone/Acet 5/325 mg [[place] 5-325 mg] 1 tab PO Q6H PRN 7 Days #28 tab 03/15/18 [Rx] Amoxicillin/Clavulanate [Augmentin] 875 mg PO BIDWM 5 Days #5 tablet 04/05/18 [Rx] Docusate [Colace] 100 mg PO BID #30 capsule 04/05/18 [Rx] Ibuprofen 800 mg PO Q8HR #42 tablet 04/05/18 [Rx] Omeprazole [PriLOSEC] 40 mg PO DAILY@0630 30 Days #30 capsule. 04/05/18 [Rx] Oxycodone HCl/Acetaminophen [Percocet 5-325 mg Tablet] 1 each PO Q6HR 7 Days #28 tablet 04/05/18 [Rx] Promethazine [Phenergan] 25 mg PO Q8HR #35 tablet 04/05/18 [Rx] Sulfamethoxazole/Trimeth DS [Bactrim DS] 1 each PO BID 5 Days #10 tablet 04/05/18 [Rx] Allergy/AdvReac Type Severity Reaction Status Date / Time adhesive Allergy Severe See Verified 03/29/18 13:28 Comments Oxycodone [From Percocet] Allergy Itching Verified 03/29/18 13:28 - Meds/Allergy Pre-op Review Medications Reviewed: Yes Allergies Reviewed: Yes Beta Blockers on Current Med List: Yes If Beta Blockers taken, Date/Time (Last Dose taken): 04/08/2918 at 2101 Anesthesia Results - Labs 04/08/18 13:18 04/09/18 04:15 - Imaging EKG: report reviewed (04/03/2018 Sinus rhythm) Additional studies: 02/26/2018 Echo Impressions: LVEF 65%. Moderate left ventricular diastolic dysfunction. Normal right ventricular structure and function. No significant valvular dysfunction. No pulmonary hypertension. Anesthesia Exam Vital Signs/O2 Sat/Glucose, Most Recent Temp Pulse Resp BP Pulse Ox 98.3 F 75 14 142/81 99 04/09/18 03:49 04/09/18 03:49 04/09/18 03:49 04/09/18 03:49 04/09/18 03:49 Blood Glucose* 86 Height: 5'5''/1.65m Weight: 198 lbs/90 kg NPO (# of Hours): 8 Pain Scale: 0 Pain Scale Used: Numeric (1 - 10) - HEENT Pupil (Motor): EOMI Mallampati: II Teeth: Normal Oral Opening: Greater than 3 - TEAM SUPERVISOR LOC: Oriented TEAM SUPERVISOR Motor: Normal RUE, Normal LUE, Normal RLE, Normal LLE, Normal Face TEAM SUPERVISOR Sensory: Normal: RUE, LUE, RLE, LLE, Face - Cardiac Rhythm: Regular Murmur: None - Pulmonary Breath Sounds: bilateral Clear Respiratory Effort: Symmetrical Anesthesia Assess/Plan ASA Score: 3 Modified [place] Scale for Level of Consciousness: Cooperative, oriented, and tranquil Anesthetic Plan: MAC Monitoring Plan: Standard Monitors
[2018-04-09] MEDS: *HR* HYDROcodone/Acet 5/325 mg TABLET PO PRN ×2 (02:19→10:08)
[2018-04-09 04:51] LABS: BUN/Creatinine Ratio 9 (6-26); Blood Urea Nitrogen 6 mg/dL (6-20); Carbon Dioxide 24 mEq/L (23-29); Chloride 107 mEq/L (98-107); Glucose 79 mg/dL (70-105); Magnesium 1.4 mg/dL (1.6-2.6); Osmolality,Calculated 283 (280-300); Potassium 3.7 mEq/L (3.5-5.1); Sodium 138 mEq/L (136-145); eGFR For Non-African Americans > 60 (> 60)
[2018-04-09] MEDS ORDERED: Propofol 500 MG/50 ML INFUS..BTL ONE (07:29)
[2018-04-09] MEDS ORDERED: Lidocaine -MPF 2% 2 ML VIAL ONE (07:29)
[2018-04-09] MEDS ORDERED: 0.9 % Sodium Chloride 500 ML IVC SCH (08:00)
[2018-04-09 09:31] VITALS: BP 154/79
[2018-04-09] MEDS: Cholecalciferol (D-3) 1,000 UNIT TABLET PO SCH (10:07)
[2018-04-09] MEDS: Gabapentin 300 MG CAPSULE PO SCH (10:08)
[2018-04-09] MEDS: Sulfamethoxazole/Trimeth DS 1 EACH TABLET PO SCH (10:08)
[2018-04-09] MEDS: ALPRAZolam 0.5 MG TABLET PO SCH (10:09)
--- NOTE | 2018-04-09 14:01 | Discharge Summary ---
<Annetta Rodriguez - Last Filed: 04/09/18 14:36> - NOTES TO OUTPATIENT PROVIDER Notes to Outpatient Provider: Admitted with mastectomy wound abscess that was treated by surgery team and IV abx. Transitioned ot bactrim + augmentin and has 7 addl days required on dc to complete course. She complained of cramping abd pain and had green watery diarrhea. Stool studies neg for infection, but + fobt. GI followed her. egd and cscope neg. She had bx taken to rule out microsopic colitis. She requires outpt gi fu of results of bx and addl labs pending at sc. She requires cbc to assess hgb and magnesium level in next 5 days. Her magnesium level required multiple IV infusions throughout admission. She did not tolerate oral magnesium as suspect it was the cause of her diarrhea, or contributed to it. Orders not resulted at time of discharge: Pending orders 04/03/18 14:42 Culture,Wound [RM] Stat 04/08/18 12:44 Calprotectin, Fecal Routine 04/08/18 15:00 UA w. reflex culture [Urinalysis Reflex Cult & Micro] [URIN] Stat 04/09/18 04:00 Pancreatic Elastase, Fecal AM 0400 04/09/18 09:00 Surgical Pathology [PTH] Routine - Discharge Diagnosis (1) HTN (hypertension) Status: Chronic Qualifiers: Hypertension type: essential hypertension Qualified Code(s): I10 - Essential (primary) hypertension (2) Morbid obesity with BMI of 40.0-44.9, adult Status: Chronic (3) S/P mastectomy, bilateral Status: Acute (4) Surgical site infection Status: Acute (5) Sepsis Status: Acute Qualifiers: Qualified Code(s): A41.9 - Sepsis, unspecified organism (6) DVT prophylaxis Status: Acute (7) Hypokalemia Status: Acute (8) Anemia Status: Acute Qualifiers: Anemia type: unspecified type Qualified Code(s): D64.9 - Anemia, unspecified Hospital course: Ms. Jennings is a 57 year old female - Time Spent with Patient Total time spent providing and/or coordinating discharge services: - Discharge Medications Prescriptions: Oxycodone HCl/Acetaminophen [Percocet 5-325 mg Tablet] 1 each PO Q6HR 7 Days #28 tablet Ibuprofen 800 mg PO Q8HR #42 tablet Promethazine [Phenergan] 25 mg PO Q8HR #35 tablet Amoxicillin/Clavulanate [Augmentin] 875 mg PO BIDWM 10 Days #20 tablet Docusate [Colace] 100 mg PO BID #30 capsule Omeprazole [PriLOSEC] 40 mg PO DAILY@0630 30 Days #30 capsule. Sulfamethoxazole/Trimeth DS [Bactrim DS] 1 each PO BID 10 Days #20 tablet Home Medications: Propranolol HCl 40 mg PO BID 02/29/16 [History] ALPRAZolam [Xanax 0.5 MG Tablet] 0.5 mg PO BID 10/15/17 [History] Buspirone HCl [Buspar] 15 mg PO TID 10/15/17 [History] Cholecalciferol (D-3) [Vitamin D] 5,000 unit PO DAILY #30 tablet 10/16/17 [Rx] LORazepam [Ativan] 1 mg PO TID PRN 11/09/17 [History] Promethazine [Phenergan] 25 mg PO Q6HR PRN #30 tablet 02/23/18 [Rx] Docusate Sodium [Colace] 100 mg PO BID #30 capsule 03/15/18 [Rx] Gabapentin [Neurontin] 600 mg PO TID 03/15/18 [History] HYDROcodone/Acet 5/325 mg [[place] 5-325 mg] 1 tab PO Q6H PRN 7 Days #28 tab 03/15/18 [Rx] Docusate [Colace] 100 mg PO BID #30 capsule 04/05/18 [Rx] Ibuprofen 800 mg PO Q8HR #42 tablet 04/05/18 [Rx] Omeprazole [PriLOSEC] 40 mg PO DAILY@0630 30 Days #30 capsule. 04/05/18 [Rx] Oxycodone HCl/Acetaminophen [Percocet 5-325 mg Tablet] 1 each PO Q6HR 7 Days #28 tablet 04/05/18 [Rx] Promethazine [Phenergan] 25 mg PO Q8HR #35 tablet 04/05/18 [Rx] Amoxicillin/Clavulanate [Augmentin] 875 mg PO BIDWM 10 Days #20 tablet 04/09/18 [Rx] Sulfamethoxazole/Trimeth DS [Bactrim DS] 1 each PO BID 10 Days #20 tablet 1 [Rx] Allergies/Adverse Reactions: Allergy/AdvReac Type Severity Reaction Status Date / Time adhesive Allergy Severe See Verified 03/29/18 13:28 Comments Oxycodone [From Percocet] Allergy Itching Verified 03/29/18 13:28 Date of admission: 04/03/18 18:55 Primary care physician: Jean Steen DO Consults: 04/03/18 15:43 Consult to Surgery [CONS] Stat Consulting Provider: [facility] Reason for Consult: recent mastectomy with drainage Time Notified: 15:44 Call Completed: Yes 04/07/18 09:55 Consult to Gastroenterology [CONS] Routine Consulting Provider: Gastroenterology [facility] Reason for Consult: persistent diarrheah; c diff negative Call Completed: No - Constitutional Vitals: Temp Pulse Resp BP Pulse Ox 97.7 F 79 16 154/79 99 04/09/18 09:30 04/09/18 09:30 04/09/18 09:30 04/09/18 09:30 04/09/18 09:30 - Patient Status Disposition: Home Health Service Condition: Good Overall status at discharge: patient is progressing back to baseline - Discharge Instructions Instructions: Acute Wound Care (DC), Abscess (GEN) Follow Up With: Charly Kay DO [Partnered Physician] - 04/13/18 9:10 am Jean Steen DO [Primary Care Provider] - 04/21/18 4:00 pm Aria Huerta MD [Partnered Physician] - Additional Instructions: Please follow up with Dr Kay in the office next week. Daily Wound Care: Remove dressing and packing. Wash/Shower with antibacterial soap. Repack with 1/2 in plain gauze. cover with a dry dressing. Tape to secure. May reinforce or change outer dressing as needed. Daily BELTRAN drain care: Remove drain sponge.~ Shower/wash with antibacterial soap.~ Replace drain sponge.~ Cover with a dry dressing.~ Tape to secure.~ Do not let the BELTRAN drain dangle from the body.~ Secure the bulb to clothing with a safety pin or suspend from a lanyard when showering. General Surgical Discharge Instructions 1. No pushing, pulling, or lifting greater than 15 lbs for 2-4 weeks (depending upon procedure). 2. You may shower beginning today, but no tub baths, soaking, or swimming for 2 weeks. 3. You may resume driving when you are off narcotics and are safe to react in a car. 4. Take ibuprofen every 8 hours for discomfort. If this does not relieve discomfort, you may take the as needed Percocet. Take narcotics as directed. Do not take more narcotics then directed and do not share your narcotics with any other person. Do not drink alcohol while on narcotics. 5. Take stool softeners (Colace) or a water based laxative (Miralax) while taking narcotics. You may hold for loose stools. 6. Report any fevers greater than 100.5F, increase abdominal discomfort, drainage that looks like pus, increased redness or pain at the surgical site, or any vomiting. 7. Report any pain in the calves, shortness of breath, or rapid heartbeat. 8. Follow-up in the office as directed. 9. If you were prescribed antibiotics, do not stop them without talking to your provider. - Attending Attestation I examined this patient and my medical decision-making was reviewed with the Resident Physician Dr Shanks. I agree with the documented findings, disposition and treatment plan as described except to the extent set forth below/addl details below. Ms Jennings was admitted with breast abscess s/p bl mastectomy 02/2012 and outpatient drain placement and abx started as an outpt with failure to improve. She had I&D by surgery 04/03, received IV abx, bl cxs have been negative. She has a history of anemia, is s/p chemo, and had a significant drop in hgb s/p I&D to 6.9 on 04/04and received 2 units prbc. Hgb has remained stable and uptrended since that time. Discharge has been delayed by voluminous green watery diarrhea with work up + fobt but other imaging, stool studies neg and egd and cscope neg. Overall now diarrhea resolved, cont mild abdominal cramping. Will dc to home in stable condition with outpt fu Awake, alert, lower abd cramping is much improved, no diarrhea, No nausea or emesis. Denies fevers, chills. had egd and cscope that were normal this morning gen- alert, awake,appears stated age eyes- pupils equal round, no conjunctival pallor cv- reg rate and rhythm, normal s1,s2, no murmurs appreciated lungs- ctabl, no wheezing, rhonchi or crackles, normal resp effort on ra abd- soft, snon tender,, no guarding, non distended, + bs neuro- AAOx3 Left Breast Abscess s/p bl mastectomy, s/p I&D 04/03, improving -surgery rec for continue home health with wound care on dc, follow up in office next week Thursday the at 9am Dr Kay. -cont Bactrim DS + Augmentin7 more days to complete 14d course Acute on Chronic, normocytic, suspect 2/2 blood loss with I&D, stable, uptrended withotu intervention -of note, with diarrhea occult stool checked and +, no melena, hematochezia cscope + egd 04/09 normal -fu with oncology outpt Nausea, Emesis, Diarrhea, suspect viral gastroenteritis vs medication s/e Resolved -stool studies including cdiff neg for infectious etiology -CT a/p neg for acute finding -improved with stopping PO mag -given immunocompromised pt with persistent, large volume, green diarrhea, consulted gi - cscope and egd unremakable, colon bx taken to assess for microscopic colitis, addl labs ordered and pt will fu with gi outpt Hypomagnesemia, repleted IV this admission, did not tolerate oral mag as it likely contributed to her diarrhea, fu with pcp <Pablo Shanks - Last Filed: 04/09/18 15:28> Orders not resulted at time of discharge: Pending orders 04/03/18 14:42 Culture,Wound [RM] Stat 04/08/18 12:44 Calprotectin, Fecal Routine 04/08/18 15:00 UA w. reflex culture [Urinalysis Reflex Cult & Micro] [URIN] Stat 04/09/18 04:00 Pancreatic Elastase, Fecal AM 0400 04/09/18 09:00 Surgical Pathology [PTH] Routine Date of Encounter: 04/09/18 Time of Encounter: 09:00 - Discharge Diagnosis (1) Sepsis Priority: Primary Status: Acute Qualifiers: Qualified Code(s): A41.9 - Sepsis, unspecified organism (2) Diarrhea Priority: Secondary Status: Acute Qualifiers: Diarrhea type: unspecified type Qualified Code(s): R19.7 - Diarrhea, unspecified (3) S/P mastectomy, bilateral Priority: Secondary Status: Acute (4) Surgical site infection Priority: Primary Status: Acute (5) Anemia Priority: Secondary Status: Acute Qualifiers: Anemia type: unspecified type Qualified Code(s): D64.9 - Anemia, unspecified (6) Vomiting Priority: Secondary Status: Acute Qualifiers: Vomiting Intractability: non-intractable Nausea presence: with nausea (7) HTN (hypertension) Priority: Secondary Status: Chronic Qualifiers: Hypertension type: essential hypertension Qualified Code(s): I10 - Essential (primary) hypertension Hospital course: Ms. Jennings is a 57 year old female PMHx Hypertension, obesity, BL breast cancer s/p chemotherapy and mastectomy on March 12 presents with fevers and chills after the BL mastectomy. She admits to fatigue, chills, nausea, loss of appetite since surgery. She also had pus draining from the breast. The patient had drain placed by general surgeon on April 01, 2018 and sent home on Bactrim. However, she spiked a fever 102.3 and came to ED, and was started on v ancomycin and ceftriaxone, CT shows abscess in left chest wall. She is treated with vancomycin and zosyn since admission on 04/03/18. Blood culture without growth so far. Pending final results. CT Chest: s/p BL mastectomy with large enhancing fluid collection in the left lateral chest wall and anxilla suspicious for abscess. Large percutaneous drainage catheter is in place. Smaller fluid collection in the right lateral chest wall without significant peripheral enhancement that may represent a postoperative seroma. Large heterogeneous right thyroid lobe was noted as well. General surgery has been following throughout admission and reports improving left abscess. No acute intervention required. On 04/04/18, patient's hemoglobin dropped to 6.9. She received 2 units of RBCs and her hemoglobin has been stable for the last 72 hours. Drop in hemoglobin likely secondary to post surgical bleed and abscess. This is contained. Patient cleared for discharge on 04/05/18, but had multiple episodes of nausea, vomiting, and diarrhea. She did not tolerated her lunch. Phenergan and Zofran were given. GI Panel was negative but +FOBT. Patient had EGD/colonoscopy on 04/08/18, both were normal without any signs of active bleed. Plan to discharge with Augmentin and Bactrim for continued therapy (7 more days), phernergan, prilosec, and oxycodone for pain. She will follow up with her oncologist and PCP. Discharge discussed with: patient Time spent discussing smoking cessation with patient: 3 to 10 minutes - Time Spent with Patient Total time spent providing and/or coordinating discharge services: Greater than 30 minutes Date of admission: 04/03/18 18:55 Primary care physician: Jean Steen DO Consults: 04/03/18 15:43 Consult to Surgery [CONS] Stat Consulting Provider: [facility] Reason for Consult: recent mastectomy with drainage Time Notified: 15:44 Call Completed: Yes 04/07/18 09:55 Consult to Gastroenterology [CONS] Routine Consulting Provider: Gastroenterology [facility] Reason for Consult: persistent diarrheah; c diff negative Call Completed: No - Constitutional Vitals: Temp Pulse Resp BP Pulse Ox 97.7 F 79 16 154/79 99 04/09/18 09:30 04/09/18 09:30 04/09/18 09:30 04/09/18 09:30 04/09/18 09:30 Exam: NAD - Head Head exam: Present: atraumatic, normocephalic - Eye Eye exam: Present: conjuntiva pink, sclera anicteric - Neck Neck exam general surgery: Present: supple, trachea midline. Absent: lymphadenopathy - Respiratory Respiratory exam: Present: CTAB. Absent: accessory muscle use, rales, rhonchi, wheezes - Cardiovascular Cardiovascular exam: Present: RRR, +S1, +S2. Absent: diastolic murmur, gallop, rubs, systolic murmur - GI/Abdominal GI/Abdominal exam: Present: normal bowel sounds, soft, no peritoneal signs. Absent: distended, tenderness - Extremities Exam Extremities exam: Present: warm, radial pulses palpable and symmetrical. Absent: calf tenderness, cyanotic, pedal edema - Neurological Exam Neurological exam: Present: CN II-XII intact, oriented X3, no focal deficits. Absent: pronater drift, facial droop, speech deficit - Skin Skin exam: Present: dry, intact - Patient Status Overall status at discharge: patient is progressing back to baseline - Diet and Activity Activity: increase activity as tolerated Diet: advance to your usual diet
--- NOTE | 2018-04-09 15:55 | Physician Discharge Referral ---
<Pablo Shanks - Last Filed: 04/09/18 15:54> Home Health/Hosp Referral Info Transfer to: Home Health - Diagnosis (1) Sepsis Priority: Primary Status: Acute (2) Diarrhea Priority: Secondary Status: Acute (3) S/P mastectomy, bilateral Priority: Secondary Status: Acute (4) Surgical site infection Priority: Secondary Status: Acute (5) Anemia Priority: Secondary Status: Acute (6) Vomiting Priority: Secondary Status: Acute (7) HTN (hypertension) Priority: Secondary Status: Chronic - Respiratory Orders Smoking Cessation: Smoking cessation has been advised. For more information, call the [place] Tobacco Quit Line at 7-479-CVTONOW. - Transfer Medications Prescriptions: Oxycodone HCl/Acetaminophen [Percocet 5-325 mg Tablet] 1 each PO Q6HR 7 Days #28 tablet Ibuprofen 800 mg PO Q8HR #42 tablet Promethazine [Phenergan] 25 mg PO Q8HR #35 tablet Amoxicillin/Clavulanate [Augmentin] 875 mg PO BIDWM 10 Days #20 tablet Docusate [Colace] 100 mg PO BID #30 capsule Omeprazole [PriLOSEC] 40 mg PO DAILY@0630 30 Days #30 capsule. Sulfamethoxazole/Trimeth DS [Bactrim DS] 1 each PO BID 10 Days #20 tablet Home Medications: Propranolol HCl 40 mg PO BID 02/29/16 [History] ALPRAZolam [Xanax 0.5 MG Tablet] 0.5 mg PO BID 10/15/17 [History] Buspirone HCl [Buspar] 15 mg PO TID 10/15/17 [History] Cholecalciferol (D-3) [Vitamin D] 5,000 unit PO DAILY #30 tablet 10/16/17 [Rx] LORazepam [Ativan] 1 mg PO TID PRN 11/09/17 [History] Promethazine [Phenergan] 25 mg PO Q6HR PRN #30 tablet 02/23/18 [Rx] Docusate Sodium [Colace] 100 mg PO BID #30 capsule 03/15/18 [Rx] Gabapentin [Neurontin] 600 mg PO TID 03/15/18 [History] HYDROcodone/Acet 5/325 mg [[place] 5-325 mg] 1 tab PO Q6H PRN 7 Days #28 tab 03/15/18 [Rx] Docusate [Colace] 100 mg PO BID #30 capsule 04/05/18 [Rx] Ibuprofen 800 mg PO Q8HR #42 tablet 04/05/18 [Rx] Omeprazole [PriLOSEC] 40 mg PO DAILY@0630 30 Days #30 capsule.dr 04/05/18 [Rx] Oxycodone HCl/Acetaminophen [Percocet 5-325 mg Tablet] 1 each PO Q6HR 7 Days #28 tablet 04/05/18 [Rx] Promethazine [Phenergan] 25 mg PO Q8HR #35 tablet 04/05/18 [Rx] Amoxicillin/Clavulanate [Augmentin] 875 mg PO BIDWM 10 Days #20 tablet 04/09/18 [Rx] Sulfamethoxazole/Trimeth DS [Bactrim DS] 1 each PO BID 10 Days #20 tablet 04/09/18 [Rx] Allergies/Adverse Reactions: Allergy/AdvReac Type Severity Reaction Status Date / Time adhesive Allergy Severe See Verified 03/29/18 13:28 Comments Oxycodone [From Percocet] Allergy Itching Verified 03/29/18 13:28 Certification: Further, I certify that my clinical findings support that this patient is homebound (i.e. absences from home require considerable and taxing effort and are for medical reasons or religion services or infrequently or short duration when for other reasons) because: Homebound Reason: Patient requires assistance of a person or device to safely leave home, Leaving home requires considerable and taxing effort due to condition Attestation: My signature below is to certify that this patient is under my care and that I, or nurse practitioner, or a physician's clothing sales assistant working with me, has a [id number] encounter with this patient. <Annetta Rodriguez - Last Filed: 04/09/18 16:11> Home Health/Hosp Referral Info Provider in Charge Post Discharge: PCP - Diagnosis (1) HTN (hypertension) Status: Chronic (2) Morbid obesity with BMI of 40.0-44.9, adult Status: Chronic (3) S/P mastectomy, bilateral Status: Acute (4) Surgical site infection Status: Acute (5) Sepsis Status: Acute (6) DVT prophylaxis Status: Acute (7) Hypokalemia Status: Acute (8) Anemia Status: Acute - Respiratory Orders Smoking Cessation: Smoking cessation has been advised. For more information, call the [place] Tobacco Quit Line at 2-458-MFJB-NOW. - Diet/Nutrition Diet/Nutrition Orders: Regular - Activity Activity Orders: Up ad andre - Services Needed Following services are medically necessary services: Nursing, Home Health Aide Certification: Further, I certify that my clinical findings support that this patient is homebound (i.e. absences from home require considerable and taxing effort and are for medical reasons or religion services or infrequently or short duration when for other reasons) because: Attestation: My signature below is to certify that this patient is under my care and that I, or nurse practitioner, or a physician's clothing sales assistant working with me, has a [id number] encounter with this patient.
== END 2018-04-09 15:49 | disposition home health service (06) | DRG 721 ==
LOC: 3ANU 14:34 → EMEROOARM 14:34 → SUATTDRO 18:55 → 3ANU 19:00
PROVIDERS: ADMIT Internal Medicine; ATTEND Internal Medicine
PROC: ENDOEBX (2018-04-09 08:40)
PROC: ENDOCBX (2018-04-09 08:40)